=== PATIENT | female | born 2000 | race Hispanic/Latino ===

== ENCOUNTER 2022-05-30 10:33 | Emergency (ER) | payer OTHER, MEDICAID, SELFPAY ==
[2022-05-30] VITALS (8 sets, daily range): BP systolic 120–130; BP diastolic 60–84; PULSE 73–94; RESP 18; TEMP 36.4; O2SAT 95–97; BMI 30.1
--- NOTE | 2022-05-30 11:35 | DI.US.S_ITS ---
PROCEDURE: US PERIPH VENOUS LOW EXTREM LT INDICATIONS: CALF PAIN TECHNIQUE: Real-time imaging, as well as color and pulse Doppler interrogation, were performed of the lower extremity deep veins from the inguinal ligament to the popliteal fossa. COMPARISON: None. FINDINGS: The common femoral, femoral and popliteal veins are normally compressible, and free of intraluminal thrombus. Color and pulse Doppler demonstrate normal phasic intraluminal flow. There is normal augmentation response to distal compression maneuver. IMPRESSION: Negative for deep venous thrombosis. Dictated by: Dante Siddiqui M.D. on 05/30/2022 at 11:07 Approved by: Dante Siddiqui M.D. on 05/30/2022 at 11:08
--- NOTE | 2022-05-30 11:35 | DI.RAD.S_ITS ---
PROCEDURE: XR CHEST 1V INDICATIONS: chest pain TECHNIQUE: One view of the chest was acquired. COMPARISON: None. FINDINGS: Surgical changes and devices: None. Lungs and pleura: Lungs are clear. No pleural effusions or pneumothorax. Mediastinum: Mediastinal contours appear normal. Heart size is normal. Bones and chest wall: No suspicious bony lesions. Overlying soft tissues appear unremarkable. IMPRESSION: No acute cardiopulmonary process. Dictated by: Hollis Ch M.D. on 05/30/2022 at 12:20 Approved by: Hollis Ch M.D. on 05/30/2022 at 12:20
[2022-05-30 12:01] LABS: Add Manual Diff / Slide Review NO; Basophils Absolute Auto 0 /uL (0-100); Basophils Percent Auto 0.8 % (0-2); Eosinophils Absolute Auto 100 /uL (0-450); Eosinophils Percent Auto 2.8 % (2-4); Hematocrit 39.5 % (36-46); Hemoglobin 12.9 g/dL (12.0-16.0); Lymphocytes Absolute Auto 1300 /uL (1100-4500); Lymphocytes Percent Auto 32.1 % (25-40); Mean Corpuscular HGB Conc 32.6 % (30-36); Mean Corpuscular Hemoglobin 27.2 PG (26-34); Mean Corpuscular Volume 83.3 fL (80-100); Monocytes Absolute Auto 500 /uL (0-900); Monocytes Percent Auto 13.7 % (3-14); Neutrophils Absolute Auto 2000 /uL (1500-7000); Neutrophils Percent Auto 50.6 % (50-75); Platelet Count 162 X10^3/uL (150-400); Red Blood Cell Count 4.74 X10^6/uL (4.0-5.2); Red Cell Distribution Width 13.5 % (11.6-14.8)
[2022-05-30 12:11] LABS: INR 1.1 (0.9-1.3)
[2022-05-30 12:13] LABS: PTT Partial Thromboplastin Tim 31 SECONDS (26-36)
[2022-05-30 12:16] LABS: Alanine Aminotransferase 35 IU/L (<35); Albumin 4.3 g/dL (3.5-5.0); Albumin Globulin Ratio 1.2 (1.0-2.8); Alkaline Phosphatase 77 U/L (38-126); Aspartate Aminotransferase 26 IU/L (14-36); BUN Creatinine Ratio 35.7 (6-22); Bilirubin Total 0.2 mg/dL (0.2-1.3); Blood Urea Nitrogen 20 mg/dL (7-17); Calcium 8.4 mg/dL (8.4-10.2); Carbon Dioxide 25 mmol/L (22-32); Chloride 103 mmol/L (98-107); Creatine Kinase 71 U/L (30-135); Estimated Glomerular Filt Rate > 60 mL/min (>60); Globulin 3.5 g/dL (1.7-4.1); Glucose 86 mg/dL (70-100); HEMOLYSIS < 15 (0-50); Lipase 107 U/L (23-300); Magnesium 1.9 mg/dL (1.6-2.3); Potassium 3.8 mmol/L (3.4-5.1); Sodium 139 mmol/L (137-145); Total Protein 7.8 g/dL (6.3-8.2)
[2022-05-30 12:17] LABS: D Dimer 543 ng/ml (<500)
--- NOTE | 2022-05-30 12:22 | DI.CT.S_ITS ---
PROCEDURE: CT ANGIO CHEST PE PROTOCOL INDICATIONS: Chest pain/positive D-dimer TECHNIQUE: After the administration of intravenous contrast, 2 mm thick sections acquired from the pulmonary apices to the posterior costophrenic angles. 3-dimensional maximum intensity projection (MIP) coronal and sagittal reformats were then acquired through the thorax. For radiation dose reduction, the following was used: automated exposure control, adjustment of mA and/or kV according to patient size. COMPARISON: None. FINDINGS: Image quality: Excellent. Pulmonary arteries: Pulmonary arteries are normal in size, and demonstrate no intraluminal filling defects to suggest central pulmonary embolism. Lungs and pleura: Lungs are clear. No pleural effusions or pneumothorax. Central and peripheral airways are patent. Mediastinum: Heart size is normal, without pericardial effusion. No mediastinal or hilar adenopathy. Thoracic aorta is normal in caliber and enhancement. Esophagus is normal in caliber, without hiatal hernia. Bones and chest wall: No suspicious bony lesions. Ribs and thoracic spine appear intact throughout. Thyroid gland is unremarkable. No axillary or supraclavicular adenopathy. Abdomen: Visualized upper abdominal solid organs appear normal in the early arterial phase of enhancement. IMPRESSION: No pulmonary embolism. No findings to explain upper back and chest pain. Dictated by: Hollis Ch M.D. on 05/30/2022 at 12:59 Approved by: Hollis Ch M.D. on 05/30/2022 at 13:05
--- NOTE | 2022-05-30 12:22 | ED.CHESTPAIN ---
HPI - Chest Pain General Chief Complaint: Chest Pain Stated Complaint: chest pain 1 week /back pain 3 week Time Seen by Provider: 05/30/22 11:42 Source: patient Mode of arrival: Ambulatory Limitations: no limitations History of Present Illness HPI narrative: Patient brought here by boyfriend for complaints of constant 5/10 sharp substernal chest pain that radiates to left in the right. Goes to her back as well. No nausea no dyspnea no sweating no syncope. No history of blood clots or legs or lungs. Patient also complains of left calf pain. No dyspnea. Patient has been under lot of stress recently. More than usual. No recent nausea vomiting diarrhea cough cold or congestion. Denies . No primary family history of heart attack or blood clots in legs or lungs. Patient is not on any control pills. Pain is nonreproducible. No discomfort with walking. No discomfort with deep breath cough or movement. She is not tried any medications for this pain Related Data Allergies Allergy/AdvReac Type Severity Reaction Status Date / Time No Known Drug Allergies Allergy Verified 05/30/22 10:43 Review of Systems Review of Systems Narrative: GENERAL: negative chills, fatigue, malaise, fever, sweats. HEENT: negative sinus pain, ear pain, sore throat RESPIRATORY: negative dyspnea, cough CARDIOVASCULAR: Positive chest pain, negative palpitations GASTROINTESTINAL: negative nausea, vomiting, abdominal pain : negative dysuria, frequency, hematuria MUSCULOSKELETAL: negative muscle or bony pain SKIN: negative rash, skin lesions NEUROLOGIC: negative weakness, numbness ROS Unobtainable: All systems reviewed & are unremarkable except as noted in HPI and below Patient History Social History Smoking Status: Never smoker Smoking Status: Never smoker alcohol intake frequency: other Substance Use Type: does not use Exam Narrative Exam Narrative: GENERAL: in no distress, not toxic not dyspneic HEAD: Normocephalic. EYES: Pupils equal round ENT: Mucous membranes moist. NECK: Trachea midline. CARDIOVASCULAR: Regular rate and rhythm without murmurs, nontender chest wall on palpation. No pain with deep breath or movement or cough or deep breath. RESPIRATORY: Clear to auscultation. Breath sounds equal bilaterally. No wheezes, rales, or rhonchi. GASTROINTESTINAL: Abdomen soft, non-tender EXTREMITIES: No gross deformities. Calves nontender BACK: No flank tenderness. NEURO: AOx4. SKIN: Warm and dry PSYCH: Not anxious, is cooperative Initial Vital Signs Initial Vital Signs: Vital Signs Temperature 97.6 F 05/30/22 10:43 Pulse Rate 94 H 05/30/22 10:43 Respiratory Rate 18 05/30/22 10:43 Blood Pressure 125/62 05/30/22 10:43 Pulse Oximetry 96 05/30/22 10:43 Oxygen Delivery Method 05/30/22 10:43 Scores HEART Score Heart Score history: Slightly Suspicious Heart Score EKG: Normal Heart Score Age: < 45 years old Heart Score risk factors: No known risk factors Heart Score troponin: < or = to normal limit Heart Score Total: 0 Course Orders Ordered: ED Orders 05/30/22 10:48 EKG-12 Lead Stat 05/30/22 11:35 US periph venous low extrem lt Stat XR chest 1V Stat EKG-12 Lead Stat 05/30/22 11:50 Complete Blood Count AUTO DIFF Stat Comprehensive Metabolic Panel Stat D Dimer Stat Lipase Stat Magnesium Stat Partial Thromboplastin Time Stat Prothrombin Time INR Stat Troponin & CK Cardiac Panel Stat 05/30/22 12:18 COVID19 -Nasal RAPID/Pre-Proc Stat 05/30/22 12:22 CT angio chest PE protocol Stat 05/30/22 12:23 Test Serum,Qual Stat Discontinued Medications Sodium Chloride (Normal Saline 0.9%) 500 mls @ 1,000 mls/hr IV BOLUS ONE Stop: 05/30/22 12:51 Last Infusion: 05/30/22 13:26 Dose: 0 mls/hr Documented By: Admin: 05/30/22 12:34 Dose: 1,000 mls/hr Documented By: CARL Ketorolac Tromethamine (Ketorolac 30 Mg/Ml Vial) 15 mg IV NOW ONE Stop: 05/30/22 12:23 Last Admin: 05/30/22 12:33 Dose: 15 mg Documented By: CARL Vital Signs Vital signs: Vital Signs - 8 hr 05/30/22 10:43 05/30/22 11:52 05/30/22 11:53 Temperature 97.6 F Pulse Rate 94 H 82 Respiratory Rate 18 18 Blood Pressure 125/62 120/83 Pulse Oximetry 96 97 Oxygen Delivery Method Room Air Room Air 05/30/22 11:53 05/30/22 12:00 05/30/22 12:00 Temperature Pulse Rate 82 83 Respiratory Rate Blood Pressure 123/84 Pulse Oximetry 97 97 Oxygen Delivery Method 05/30/22 12:30 05/30/22 12:30 05/30/22 12:49 Temperature Pulse Rate 83 Respiratory Rate Blood Pressure 126/80 126/60 Pulse Oximetry 95 Oxygen Delivery Method 05/30/22 12:49 05/30/22 13:00 05/30/22 13:00 Temperature Pulse Rate 85 79 Respiratory Rate Blood Pressure 130/70 Pulse Oximetry 97 96 Oxygen Delivery Method 05/30/22 13:30 05/30/22 13:30 Temperature Pulse Rate 73 Respiratory Rate Blood Pressure 130/74 Pulse Oximetry 97 Oxygen Delivery Method MDM - Chest Pain Lab Data 05/30/22 11:50 05/30/22 11:50 Labs: Lab Results 05/30/22 05/30/22 05/30/22 Range/Units 11:50 11:50 11:50 WBC 4.0 L (4.5-11.0) X10^3/uL RBC 4.74 (4.0-5.2) X10^6/uL Hgb 12.9 (12.0-16.0) g/dL Hct 39.5 (36-46) % MCV 83.3 (80-100) fL MCH 27.2 (26-34) PG MCHC 32.6 (30-36) % RDW 13.5 (11.6-14.8) % Plt Count 162 (150-400) X10^3/uL Neut % (Auto) 50.6 (50-75) % Lymph % (Auto) 32.1 (25-40) % [place] % (Auto) 13.7 (3-14) % Eos % (Auto) 2.8 (2-4) % Baso % (Auto) 0.8 (0-2) % Neut # (Auto) 2000 (9803-0622) /uL Lymph # (Auto) 1300 (6487-7910) /uL [place] # (Auto) 500 (0-900) /uL Eos # (Auto) 100 (0-450) /uL Baso # (Auto) 0 (0-100) /uL PT 13.0 H (10.1-12.7) SECONDS INR 1.1 (0.9-1.3) APTT 31 (26-36) SECONDS D-Dimer (<500) ng/ml Sodium 139 (137-145) mmol/L Potassium 3.8 (3.4-5.1) mmol/L Chloride 103 (98-107) mmol/L Carbon Dioxide 25 (22-32) mmol/L BUN 20 H (7-17) mg/dL Creatinine 0.56 (0.52-1.04) mg/dL Estimated GFR > 60 (>60) mL/min BUN/Creatinine Ratio 35.7 H (6-22) Glucose 86 (70-100) mg/dL Calcium 8.4 (8.4-10.2) mg/dL Magnesium 1.9 (1.6-2.3) mg/dL Total Bilirubin 0.2 (0.2-1.3) mg/dL AST 26 (14-36) IU/L ALT 35 H (<35) IU/L Alkaline Phosphatase 77 (38-126) U/L Total Creatine Kinase 71 (30-135) U/L CK-MB (CK-2) TNP CK-MB (CK-2) Rel Index TNP Troponin I < 0.012 (0.01-0.034) ng/mL Total Protein 7.8 (6.3-8.2) g/dL Albumin 4.3 (3.5-5.0) g/dL Globulin 3.5 (1.7-4.1) g/dL Albumin/Globulin Ratio 1.2 (1.0-2.8) Lipase 107 (23-300) U/L Serum , Qual (Negative) SARS-CoV-2 (PCR) (Negative) 05/30/22 05/30/22 05/30/22 Range/Units 11:50 12:18 12:23 WBC (4.5-11.0) X10^3/uL RBC (4.0-5.2) X10^6/uL Hgb (12.0-16.0) g/dL Hct (36-46) % MCV (80-100) fL MCH (26-34) PG MCHC (30-36) % RDW (11.6-14.8) % Plt Count (150-400) X10^3/uL Neut % (Auto) (50-75) % Lymph % (Auto) (25-40) % [place] % (Auto) (3-14) % Eos % (Auto) (2-4) % Baso % (Auto) (0-2) % Neut # (Auto) (6842-5673) /uL Lymph # (Auto) (8879-9701) /uL [place] # (Auto) (0-900) /uL Eos # (Auto) (0-450) /uL Baso # (Auto) (0-100) /uL PT (10.1-12.7) SECONDS INR (0.9-1.3) APTT (26-36) SECONDS D-Dimer 543 H (<500) ng/ml Sodium (137-145) mmol/L Potassium (3.4-5.1) mmol/L Chloride (98-107) mmol/L Carbon Dioxide (22-32) mmol/L BUN (7-17) mg/dL Creatinine (0.52-1.04) mg/dL Estimated GFR (>60) mL/min BUN/Creatinine Ratio (6-22) Glucose (70-100) mg/dL Calcium (8.4-10.2) mg/dL Magnesium (1.6-2.3) mg/dL Total Bilirubin (0.2-1.3) mg/dL AST (14-36) IU/L ALT (<35) IU/L Alkaline Phosphatase (38-126) U/L Total Creatine Kinase (30-135) U/L CK-MB (CK-2) CK-MB (CK-2) Rel Index Troponin I (0.01-0.034) ng/mL Total Protein (6.3-8.2) g/dL Albumin (3.5-5.0) g/dL Globulin (1.7-4.1) g/dL Albumin/Globulin Ratio (1.0-2.8) Lipase (23-300) U/L Serum , Qual Negative (Negative) SARS-CoV-2 (PCR) Negative (Negative) Point of Care Testing Test Results Negative Urine Dip Bedside Urine Glucose Negative Bedside Urine Bilirubin - Negative Bedside Urine Ketone - Negative Urine Specific [place] 1.030 Bedside Urine Occult Blood - Negative Bedside Urine pH 6.0 Bedside Urine Protein - Negative Bedside Urine Urobilinogen - Negative Bedside Urine Nitrite - Negative Bedside Urine Leukocytes - Negative Esterase Imaging Data Chest x-ray: Radiologist's Impression: [address] [address] XRay Report Signed Patient: Ruby Arevalo MR#: [id number] : 2000 Acct:[id number] Age/Sex: 21 / F Date of Service: 05/30/22 Loc: ED Accession Number: [id number] ?? Procedure: XR chest 1V Ordering Provider: Edy Mcgrath MD PROCEDURE:? XR CHEST 1V ? INDICATIONS:? chest pain ? TECHNIQUE:? One view of the chest was acquired.? ? COMPARISON:? None. ? FINDINGS:? ? Surgical changes and devices:? None.? ? Lungs and pleura:? Lungs are clear.? No pleural effusions or pneumothorax.? ? Mediastinum:? Mediastinal contours appear normal.? Heart size is normal.? ? Bones and chest wall:? No suspicious bony lesions.? Overlying soft tissues appear unremarkable.? ? IMPRESSION:? No acute cardiopulmonary process. ? ? ? Dictated by: Hollis Ch M.D. on 05/30/2022 at 12:20 ? ? Approved by: Hollis Ch M.D. on 05/30/2022 at 12:20 ? US - DVT: Radiologist's Impression: [address] [address] Ultrasound Report Signed Patient: Ruby Arevalo MR#: [id number] : 2000 Acct:[id number] Age/Sex: 21 / F Date of Service: 05/30/22 Loc: ED Accession Number: [id number] ?? Procedure: US periph venous low extrem lt Ordering Provider: Edy Mcgrath MD PROCEDURE:? US PERIPH VENOUS LOW EXTREM LT ? INDICATIONS:? CALF PAIN ? TECHNIQUE:? Real-time imaging, as well as color and pulse Doppler interrogation, were performed of the lower extremity deep veins from the inguinal ligament to the popliteal fossa.? ? COMPARISON:? None. ? FINDINGS:? The common femoral, femoral and popliteal veins are normally compressible, and free of intraluminal thrombus.? Color and pulse Doppler demonstrate normal phasic intraluminal flow.? There is normal augmentation response to distal compression maneuver. ? ? IMPRESSION:? ? Negative for deep venous thrombosis. ? ? Dictated by: Dante Siddiqui M.D. on 05/30/2022 at 11:07 ? ? Approved by: Dante Siddiqui M.D. on 05/30/2022 at 11:08 ? CT scan - chest: Radiologist's Impression: [address] [address] [address] Scan Report Signed Patient: Ruby Arevalo MR#: [id number] : 2000 Acct:[id number] Age/Sex: 21 / F Date of Service: 05/30/22 Loc: ED Accession Number: [id number] ?? Procedure: CT angio chest PE protocol Ordering Provider: Edy Mcgrath MD PROCEDURE:? CT ANGIO CHEST PE PROTOCOL ? INDICATIONS:? Chest pain/positive D-dimer ? TECHNIQUE:? After the administration of intravenous contrast, 2 mm thick sections acquired from the pulmonary apices to the posterior costophrenic angles.? 3-dimensional maximum intensity projection (MIP) coronal and sagittal reformats were then acquired through the thorax.? For radiation dose reduction, the following was used:? automated exposure control, adjustment of mA and/or kV according to patient size.? ? COMPARISON:? None. ? FINDINGS:? Image quality:? Excellent.? ? Pulmonary arteries:? Pulmonary arteries are normal in size, and demonstrate no intraluminal filling defects to suggest central pulmonary embolism.? ? Lungs and pleura:? Lungs are clear.? No pleural effusions or pneumothorax.? Central and peripheral airways are patent.? ? Mediastinum:? Heart size is normal, without pericardial effusion.? No mediastinal or hilar adenopathy.? Thoracic aorta is normal in caliber and enhancement.? Esophagus is normal in caliber, without hiatal hernia.? ? Bones and chest wall:? No suspicious bony lesions.? Ribs and thoracic spine appear intact throughout.? Thyroid gland is unremarkable.? No axillary or supraclavicular adenopathy.? ? Abdomen:? Visualized upper abdominal solid organs appear normal in the early arterial phase of enhancement.? ? IMPRESSION:? No pulmonary embolism.? No findings to explain upper back and chest pain. ? ? Dictated by: Hollis Ch M.D. on 05/30/2022 at 12:59 ? ? Approved by: Hollis Ch M.D. on 05/30/2022 at 13:05 ? MDM Narrative Medical decision making narrative: Patient brought here by boyfriend for complaints of constant 5/10 sharp substernal chest pain that radiates to left in the right. Goes to her back as well. No nausea no dyspnea no sweating no syncope. No history of blood clots or legs or lungs. Patient also complains of left calf pain. No dyspnea. Patient has been under lot of stress recently. More than usual. No recent nausea vomiting diarrhea cough cold or congestion. Denies . No primary family history of heart attack or blood clots in legs or lungs. Patient is not on any control pills. Pain is nonreproducible. No discomfort with walking. No discomfort with deep breath cough or movement. She is not tried any medications for this pain After history and exam CBC CMP troponin D-dimer chest x-ray ultrasound the leg ordered, Toradol as well MDM CC: Chest pain Complicating co-morbidities: None Data collected from: Patient and boyfriend Medical records reviewed: No previous visits here for this complaint Differential considered: Includes but not limited to pleurisy costochondritis pulmonary embolism dissection pneumothorax [place] non-STEMI angina anxiety Exam documented above, pertinent findings include: Nontender chest Lab Test results independently reviewed as above. Pertinent findings: WBC 4 hemoglobin 12.9 hematocrit 13.5 sodium 139 potassium 3.8 AST 26 ALT 35 Independently reviewed EKG as above normal sinus rhythm normal EKG rate [address] elevation or depression Imaging studies independently reviewed: Chest x-ray no acute process. Ultrasound left leg no DVT, CT PE protocol chest no acute process Treatments: Toradol normal saline Re-evaluations: 1:30 p.m.. Patient states she did have some temporary relief with Toradol with her chest discomfort. She is by herself at this time in her room. She appears much more relaxed. Earlier boyfriend and 2 small children were in room with her. She states she has been under a lot of stress. 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 She does not go into detail about the recent stressors. She states that grandparents are in town and they can help out with the children to give her a break. She can not take any anxiolytics because she has to watch the children. She does have a family doctor to follow up with and get resources for stress management.. Return precautions reviewed with her. She desires discharge home Discussion: Appropriate for discharge home. Exam and laboratory studies and imaging are reassuring. Heart score is low and has lower heart risk factors. No primary family history of cardiac disease. No history hypertension hyperlipidemia. Patient does not smoke. Did get some relief with Toradol. Return precautions reviewed with patient. Chest discomfort likely due to her home stress. Not toxic at discharge. Return precautions reviewed with her. She does have a family doctor to follow up with. Patient chest discomfort likely related to stress. It was relieved with conservative treatment/Toradol. Diagnosis: Atypical chest pain/home stress Discharge Plan Departure Patient Disposition: Home Clinical Impression: Atypical chest pain, Stress at home Instructions: How stressed are you?, DI for Atypical Chest Pain Activity Restrictions/Additional Instructions: Please see family doctor this week for re-evaluation for your chest pain and stress management your in during. Please do try to find ways to relax and find time for yourself. At this time laboratory studies and imaging are reassuring. Return if worse if any questions or concerns. Referrals: Sierra Hollis PA-C [Primary Care Provider] - Stand Alone Forms: Patient Portal/API
[2022-05-30 12:27] LABS: Troponin I < 0.012 ng/mL (0.01-0.034)
[2022-05-30] MEDS: KETOROLAC 30 MG/ML VIAL 15 MG IV (12:33)
[2022-05-30] MEDS: SODIUM CHLORIDE 0.9% 500 ML 1000 ML IV (12:34)
[2022-05-30 12:43] LABS: COVID19 -Nasal RAPID Negative (Negative)
[2022-05-30 12:49] LABS: Pregnancy Test Serum,Qual Negative (Negative)
== END 2022-05-30 13:45 | disposition home or self-care (01) ==
PROVIDERS: Emergency Provider Emergency Medicine; Family Provider Obstetrics & Gynecology; PCP Physician Assistant
DX: R07.89 Other chest pain (principal); F43.9 Reaction to severe stress, unspecified; Z20.822 Contact with and (suspected) exposure to COVID-19
CPT/HCPCS: 36415; 71045; 71275; 80053; 81003; 81025; 82550; 83690; 83735; 84484; 84703; 85025; 85379; 85610; 85730; 87635; 93005; 93971; 96361; 96374; 99284; 99285; C9803; J1885

== ENCOUNTER 2022-10-13 09:30 | Outpatient (RCR) | payer OTHER, MEDICAID, SELFPAY ==
--- NOTE | 2022-01-13 18:19 | PT.OIE ---
Current Diagnoses Other female genital prolapse (01/13/22) Visit Care Team Role Provider Type Sierra Hollis PA-C Primary Care Provider Non-Staff Specialty: Medical Address: [facility] [place] , [facility] [address], [place], [address] Email: Bonnie Lee MD Family Provider Non-Staff Specialty: CREDIT ANALYSIS MANAGER Address: [address] [place], [address] Email: Abran Zimmerman MD Attending Provider Non-Staff Referring Provider Specialty: CREDIT ANALYSIS MANAGER Address: [address] [place] [address], [address], [place], [address] Email: Physical Therapy Initial Evaluation PT-OP-A Visit Information Start: 01/02/22 18:07 Freq: Status: Active Protocol: Document 01/13/22 14:33 LRN (Rec: 01/13/22 18:18 LRN [id number]) Out-Patient Physical Therapy Visit Information Visit Information Visit Type Initial Evaluation Visit Start Time 14:33 Visit Stop Time 15:29 Total Visit Minutes 56 Visit Number 1 Evaluation Information Evaluation Date 01/13/22 Precautions Precautions Depression controlled with meds, 05/26/21. Pubic symphasis instability, DR concerns & pelvic pain s/p pregnancies, currently . PT-OP-B Current Condition Start: 01/02/22 18:07 Freq: Status: Active Protocol: Document 01/13/22 14:33 LRN (Rec: 01/13/22 18:18 LRN [id number]) Current Condition History of Current Condition Onset Date 06/19/20 & 05/26/21. Current Complaints Urinary leakage with lifting, cough, sneeze, sexual intercourse. History of Current Condition Pt just had 2 babies back to back, first was almost 10 #. Has weakened PF and leaks urine with lifting too heavy and with sexual intercourse and with cough or sneeze and with exercise. 1st was vaginal delivery (10# baby) with 2nd degree tears requiring stitches. Urinary leakage after childbirth. 2nd was a due to preclampsia with urinary leakage about the same. Pubic pain during pregnancies and was leaking urine with walking . 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 HBP during , but now normal. Currently . Prior Treatments and Tests None Developmental History Developmental History Childbirths 06/19/20 and both boys. Treatment Goals Patient/Caregiver Goals Pt goals: -Eliminate urinary leakage -Minimize her diastasis rectus . -Decrease or eliminate PF pain in pernium and abdomen. -Independent HEP of self care for PF and abdomen. Prior Functional Status Baseline Function- Other Prior to first , no urinary leakage. Prior to second Urinary leakage with lifting, cough, sneeze, sexual intercourse. Post- depression. PF pain with intercourese Current Functional Impairments (Reported) Functional Limitations- Other Urinary leakage with lifting, cough, sneeze, sexual intercourse. Post- depression. PF pain with intercourse in lower abdomen and around vaginal canal. Pain is throbbing, lasts 1-2 hours. Personal Factors Other Personal Factors That May Effect Depression controlled with Therapy/Recovery meds, - 05/26/21. PT-OP-C Subjective Start: 01/02/22 18:07 Freq: Status: Active Protocol: Document 01/13/22 14:33 LRN (Rec: 01/13/22 18:18 LRN [id number]) Patient Questionnaires Pelvic Pain and Urgency/Frequency Patient Symptom Scale Pelvic Pain Score 21 OP-PT Pain Assessment Pain Assessment Grid Paper Pain Assessment Grid Completed No: Pt verbalized her pain levels Location Abdominal Pain Location Details Above Pubic bone Intensity 7 Scale Used Numeric (0 - 10) Description Cramping Description- Other Camping Frequency Constant Pain Duration 3-8/10 cramping. PF Pain Location Details In vaginal region inside, sometimes around anus Intensity 7 Scale Used Numeric (0 - 10) Description Throbbing PT-OP-I Pelvic Floor Start: 01/02/22 18:07 Freq: Status: Active Protocol: Document 01/13/22 14:33 LRN (Rec: 01/13/22 18:18 LRN [id number]) Pelvic Floor Assessment Urine Pelvic Floor Surgery Yes: Grade 2 tear with 1st Urinary Symptoms Pain Leakage Cause Cough,Exercise,Lifting,Sneeze Bowel Bowel Symptoms Constipation,Pain Bowel Movement Frequency 1x every 3-4 days. Previously was voiding daily. Pitt Stool Chart Type 1-7 1 PT-OP-J Posture/Palpation/Skin Start: 01/02/22 18:07 Freq: Status: Active Protocol: Document 01/13/22 14:33 LRN (Rec: 01/13/22 18:18 LRN [id number]) Posture Evaluation Position Standing Head/C-Spine Posture Side Bent Left,Forward Head L-Spine Posture Increased Lordosis,Shifted Right Shoulder Posture (L) Elevated Scapula Posture (L) Elevated Arm Posture (L) Internally Rotated,(R) Internally Rotated Pelvis Posture Anteriorly Tilted,(L) Rotated Posterior,(L) Iliac Crest Superior,(L) PSIS Posterior Knee Posture (L) Genu Valgus,(R) Genu Valgus,(L) Genu Recurvatum,(R) Genu Recurvatum Comments Posture Comments Mid spine scoliosis (R apex upper curve, L apex lower curve), Femur IR'd, lower legs ER'd. Sacrum posterior on L side. PT-OP-K Range of Motion Start: 01/02/22 18:07 Freq: Status: Active Protocol: Document 01/13/22 14:33 LRN (Rec: 01/13/22 18:18 LRN [id number]) Lumbar Spine Range of Motion Lumbar Spine Active Degrees Flexion 100 Extension 15 Lateral Flexion Left 28 Lateral Flexion Right 23 Hip Goniometric Range of Motion Hip Right Passive Testing Position Supine Flexion w/Knee Flexed 100 Abduction 50 Internal Rotation 45 External Rotation 45 Left Passive Testing Position Supine Abduction 45 Internal Rotation 30 External Rotation 50 Comments Pain in L groin with Passive hip ER. PT-OP-M Strength Start: 01/02/22 18:07 Freq: Status: Active Protocol: Document 01/13/22 14:33 LRN (Rec: 01/13/22 18:18 LRN [id number]) Trunk Strength Trunk Manual Muscle Testing Testing Position Supine Core Stabilization Doming of core with transfers sit<>supine. Hip Strength Hip Manual Muscle Testing Right External Rotation 3+ Fair+ Internal Rotation 3 Fair Comments Pain in groin and lateral hips with MMT of hip IR Left External Rotation 3 Fair Internal Rotation 3 Fair Comments Pain in groin and lateral hips with MMT of hip IR and active ER PT-OP-Q Treatments Start: 01/02/22 18:07 Freq: Status: Active Protocol: Document 01/13/22 14:33 LRN (Rec: 01/13/22 18:18 LRN [id number]) Self-Care/Home Management Treatment Education Patient Education Home Exercise Program Other Education Discussed results of evaluation, goals, and plan of care (POC). Pt agreeable to goals and POC. Educated, discussed, issued, & reviewed Bladder Diary for pt to complete over the next 7 days. Explained how to fill out diary for urinary and bowel tracking. Activities Self-Care/Home Management Activities Issued & reviewed HEP: Kegel ex's for Quick Flicks, Long Holds and Aggravator strengthening. I/S pt in TA tightening in sitting. PT-OP-T Assessment and Plan Start: 01/02/22 18:07 Freq: Status: Active Protocol: Document 01/13/22 14:33 LRN (Rec: 01/13/22 18:18 LRN [id number]) Physical Therapy Assessment Rehab Potential Rehabilitation Potential Good Evaluation Complexity Number of Personal Factors/Comorbidities 1-2 Number of Body Systems Impaired 4 or More Clinical Presentation at Evaluation Evolving Impairments Impairments Activity Tolerance,Gait,Pain, Posture,ROM,Soft Tissue Mobility,Strength,Transfers Goals Five Impairment Constipation Impairment Type 1 BM's BM once every 3 days. Short Term Goal (STG) BM daily STG Duration 03/01/22 Nursing Home Goal (LTG) Type 3-4 BM's LTG Duration 04/13/22 Four Impairment Diastasis Rectus Impairment Doming of abdomen and pain in lower abdomen with supine lying and transfers. Short Term Goal (STG) Strengthen TA resulting in no doming with transfers STG Duration 03/14/22 Nursing Home Goal (LTG) Minimal to no doming with exercise and minimize diastasis rectus. LTG Duration 07/12/22 Three Impairment Urinary leakage Impairment Urinary leakage with lifting too heavy and with sexual intercourse and with cough or sneeze and with exercise. Short Term Goal (STG) Pt able to maintain urinary continence with lifting of baby & coughing. STG Duration 03/14/22 Staff Electronic Warfare Officer Goal (LTG) Eliminate urinary leakage with sexual intercourse, and 2 months or longer s/p . LTG Duration 07/12/22 Two Impairment PF pain Impairment Pain in lower abdomen, vaginal region inside, and sometimes around anus, rated 7/10. Cramping pain in abdomen, Throbbing pain at perineum. Short Term Goal (STG) Pt educated in proper bowel mgmt/care, fluid recommendations, vulvar care and genital hygiene. STG Duration 02/12/22 Nursing Home Goal (LTG) Decrease to no greater than 1/ 10 or eliminate PF pain in perineum and abdomen. LTG Duration 04/13/22 One Impairment Lacks appropriate self care HEP. Short Term Goal (STG) Pt will be educated in proper transfers to protect her DR and to stabilize her core/PF STG Duration 02/12/22 Nursing Home Goal (LTG) Independent HEP of self care of PF, kayley hip, core strengthening and abdominal self tissue mobilization. LTG Duration 07/12/22 Assessment Summary Assessment Pt presents with multiple woman's health dysfunctions and complaint of PF pain with assessment of trunk and hip ROM; therefore held manual assessment of PF and DR today and will assess at her next appointment. She shows signs and symptoms of stress urinary incontinence, bowel dysfunction of constipation, pelvic floor pain of the abdomen and perineum, core weakness and instability with doming of her abdomen with transfers, pubic symphasis instability, and probable Diastasis Rectus. Hindering her rehabilitation program is her current and hormonal status. She is also a busy mother of a baby and toddler less than a year apart in age. It is expected that the pt's rehabilitation will take longer than expected due to her multiple areas of dysfunction. The pt will benefit from skilled physical therapy to decrease her urinary incontinence, improve bowel function, decrease pelvic pain improve core and pubic symphasis stability and reduce her diastasis rectus and educate the pt in a self residential program. The pt may need an external support to minimize her pubic symphysis pain while she is still . Physical Therapy Plan Frequency and Duration Frequency of Treatment 1x/Week Plan of Care Start Date 01/13/22 Plan of Care End Date 07/12/22 Therapeutic Interventions Therapeutic Interventions Aquatic Therapy,Home Exercise Program,Joint Mobilizations, Manual Therapy,Neuromuscular Re-education,Patient/Caregiver Education,Self-Care/Home Management,Soft Tissue Mobilization,Taping, Therapeutic Activities, Therapeutic Exercises Modalities Biofeedback,Cold Pack/Ice Massage,Electric Stimulation, Hot Packs Next Visit Focus/Plan Next Note Type Treatment Note Next Visit Plan If pt tolerates: Assess Internally PF for prolapse, pain, strength, bowel dysfunction and her DR. Try belting pt for Pub symphasis pain reduction and recommend belt if appropriate. Review bladder diary and make recommendation for proper fluid/food intake. Education: PF hygiene, PF care, proper BM with modifications as needed, bowel care and program, DR education, proper transfers for DR protection, postural changes associated to pregancy . Ex: Bowel massage, proper breathing, PF strengthening, Core/TA stab, Pelvic stab ( start Roll in/outs if tolerated) hip strengthening. Improve painfree hip and trunk mobility and posture.
--- NOTE | 2022-01-13 18:20 | PT.OPPOC ---
Physical, Occupational & Speech Therapy At [facility] Current Diagnoses Other female genital prolapse (01/13/22) Visit Care Team Role Provider Type Sierra Hollis PA-C Primary Care Provider Non-Staff Specialty: Medical Address: [address] [place] [address] [place], [facility] [address], [place], [address] Email: Bonnie Lee MD Family Provider Non-Staff Specialty: RADIOGRAPHER Address: [address] [place] [address], [address] Email: Abran Zimmerman MD Attending Provider Non-Staff Referring Provider Specialty: RADIOGRAPHER Address: [address] [place] [address], [address], [place], [address] Email: Plan Of Care PT-OP-T Assessment and Plan Start: 01/02/22 18:07 Freq: Status: Active Protocol: Document 01/13/22 14:33 LRN (Rec: 01/13/22 18:18 LRN [id number]) Physical Therapy Assessment Rehab Potential Rehabilitation Potential Good Evaluation Complexity Number of Personal Factors/Comorbidities 1-2 Number of Body Systems Impaired 4 or More Clinical Presentation at Evaluation Evolving Impairments Impairments Activity Tolerance,Gait,Pain, Posture,ROM,Soft Tissue Mobility,Strength,Transfers Goals Five Impairment Constipation Impairment Type 1 BM's BM once every 3 days. Short Term Goal (STG) BM daily STG Duration 03/01/22 Half-Way Goal (LTG) Type 3-4 BM's LTG Duration 04/13/22 Four Impairment Diastasis Rectus Impairment Doming of abdomen and pain in lower abdomen with supine lying and transfers. Short Term Goal (STG) Strengthen TA resulting in no doming with transfers STG Duration 03/14/22 Audience Development Manager Goal (LTG) Minimal to no doming with exercise and minimize diastasis rectus. LTG Duration 07/12/22 Three Impairment Urinary leakage Impairment Urinary leakage with lifting too heavy and with sexual intercourse and with cough or sneeze and with exercise. Short Term Goal (STG) Pt able to maintain urinary continence with lifting of baby & coughing. STG Duration 03/14/22 Half-Way Goal (LTG) Eliminate urinary leakage with sexual intercourse, and 2 months or longer s/p . LTG Duration 07/12/22 Two Impairment PF pain Impairment Pain in lower abdomen, vaginal region inside, and sometimes around anus, rated 7/10. Cramping pain in abdomen, Throbbing pain at perineum. Short Term Goal (STG) Pt educated in proper bowel mgmt/care, fluid recommendations, vulvar care and genital hygiene. STG Duration 02/12/22 Half-Way Goal (LTG) Decrease to no greater than 1/ 10 or eliminate PF pain in perineum and abdomen. LTG Duration 04/13/22 One Impairment Lacks appropriate self care HEP. Short Term Goal (STG) Pt will be educated in proper transfers to protect her DR and to stabilize her core/PF STG Duration 02/12/22 Half-Way Goal (LTG) Independent HEP of self care of PF, kayley hip, core strengthening and abdominal self tissue mobilization. LTG Duration 07/12/22 Assessment Summary Assessment Pt presents with multiple woman's health dysfunctions and complaint of PF pain with assessment of trunk and hip ROM; therefore held manual assessment of PF and DR today and will assess at her next appointment. She shows signs and symptoms of stress urinary incontinence, bowel dysfunction of constipation, pelvic floor pain of the abdomen and perineum, core weakness and instability with doming of her abdomen with transfers, pubic symphasis instability, and probable Diastasis Rectus. Hindering her rehabilitation program is her current and hormonal status. She is also a busy mother of a baby and toddler less than a year apart in age. It is expected that the pt's rehabilitation will take longer than expected due to her multiple areas of dysfunction. The pt will benefit from skilled physical therapy to decrease her urinary incontinence, improve bowel function, decrease pelvic pain improve core and pubic symphasis stability and reduce her diastasis rectus and educate the pt in a self senior living program. The pt may need an external support to minimize her pubic symphysis pain while she is still . Physical Therapy Plan Frequency and Duration Frequency of Treatment 1x/Week Plan of Care Start Date 01/13/22 Plan of Care End Date 07/12/22 Therapeutic Interventions Therapeutic Interventions Aquatic Therapy,Home Exercise Program,Joint Mobilizations, Manual Therapy,Neuromuscular Re-education,Patient/Caregiver Education,Self-Care/Home Management,Soft Tissue Mobilization,Taping, Therapeutic Activities, Therapeutic Exercises Modalities Biofeedback,Cold Pack/Ice Massage,Electric Stimulation, Hot Packs Next Visit Focus/Plan Next Note Type Treatment Note Next Visit Plan If pt tolerates: Assess Internally PF for prolapse, pain, strength, bowel dysfunction and her DR. Try belting pt for Pub symphasis pain reduction and recommend belt if appropriate. Review bladder diary and make recommendation for proper fluid/food intake. Education: PF hygiene, PF care, proper BM with modifications as needed, bowel care and program, DR education, proper transfers for DR protection, postural changes associated to pregancy . Ex: Bowel massage, proper breathing, PF strengthening, Core/TA stab, Pelvic stab ( start Roll in/outs if tolerated) hip strengthening. Improve painfree hip and trunk mobility and posture. Plan of Care Dates Plan of Care Start Date 01/13/22 Plan of Care End Date 07/12/22 Electronically Signed by: Iva Reyes, PT 01/13/22 [id number] If you are in agreement with this Plan of Care, please return a signed and dated copy. I have reviewed this Plan of Care and certify that the skilled therapy services above are required to meet the patient?s needs. Physician Signature Date Printed Name and Credentials Clinical Instructor Signature Printed Name and Credentials
--- NOTE | 2022-02-13 16:54 | PT.OTN ---
Current Diagnoses Other female genital prolapse (02/13/22) Physical Therapy Treatment Note PT-OP-A Visit Information Start: 01/02/22 18:07 Freq: Status: Active Protocol: Document 02/13/22 15:25 LRN (Rec: 02/13/22 16:53 LRN [id number]) Out-Patient Physical Therapy Visit Information Visit Information Visit Type Treatment Note Visit Start Time 15:25 Visit Stop Time 16:08 Total Visit Minutes 43 Visit Number 2 Evaluation Information Evaluation Date 01/13/22 Precautions Precautions Depression controlled with meds, 05/26/21. Pubic symphasis instability, DR concerns & pelvic pain s/p pregnancies, currently . Baby and toddler less than a year apart in age. PT-OP-B Current Condition Start: 01/02/22 18:07 Freq: Status: Active Protocol: Document 01/13/22 14:33 LRN (Rec: 01/13/22 18:18 LRN [id number]) Current Condition History of Current Condition Onset Date 06/19/20 & 05/26/21. Current Complaints Urinary leakage with lifting, cough, sneeze, sexual intercourse. History of Current Condition Pt just had 2 babies back to back, first was almost 10 #. Has weakened PF and leaks urine with lifting too heavy and with sexual intercourse and with cough or sneeze and with exercise. 1st was vaginal delivery (10# baby) with 2nd degree tears requiring stitches. Urinary leakage after childbirth. 2nd was a due to preclampsia with urinary leakage about the same. Pubic pain during pregnancies and was leaking urine with walking . 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 HBP during , but now normal. Currently . Prior Treatments and Tests None Developmental History Developmental History Childbirths 06/19/20 and both boys. Treatment Goals Patient/Caregiver Goals Pt goals: -Eliminate urinary leakage -Minimize her diastasis rectus . -Decrease or eliminate PF pain in pernium and abdomen. -Independent HEP of self care for PF and abdomen. Prior Functional Status Baseline Function- Other Prior to first , no urinary leakage. Prior to second Urinary leakage with lifting, cough, sneeze, sexual intercourse. Post- depression. PF pain with intercourese Current Functional Impairments (Reported) Functional Limitations- Other Urinary leakage with lifting, cough, sneeze, sexual intercourse. Post- depression. PF pain with intercourse in lower abdomen and around vaginal canal. Pain is throbbing, lasts 1-2 hours. Personal Factors Other Personal Factors That May Effect Depression controlled with Therapy/Recovery meds, - 05/26/21. PT-OP-C Subjective Start: 01/02/22 18:07 Freq: Status: Active Protocol: Document 02/13/22 15:25 LRN (Rec: 02/13/22 16:53 LRN [id number]) OP-PT Subjective Patient Comments Patient Comments Doing more Kegels and felt more leakage. PT-OP-I Pelvic Floor Start: 01/02/22 18:07 Freq: Status: Active Protocol: Document 02/13/22 15:25 LRN (Rec: 02/13/22 16:53 LRN [id number]) Pelvic Floor Assessment Urine Pelvic Floor Surgery Yes: Grade 2 tear with 1st Urinary Symptoms Pain Leakage Cause Cough,Exercise,Lifting,Sneeze Bowel Bowel Symptoms Constipation,Pain Bowel Movement Frequency 1x every 3-4 days. Previously was voiding daily. Bryant Stool Chart Type 1-7 1 Pelvic Clock Pelvic Clock 12-3 Tightness Pelvic Clock 3-6 Tenderness,Tightness Pelvic Clock 6-9 Tenderness,Tightness Pelvic Clock 9-12 Hypertonic,Tightness Pelvic Clock Other Most tender from Pelvic Clock 3-6 & 6-9. Contraction Ability Manual Muscle Testing Left 2 Manual Muscle Testing Right 3 Manual Muscle Testing Anterior 3 Manual Muscle Testing Posterior 1 Muscle Endurance (Seconds) 1 Number of Quick Contractions In 10 2 Seconds PT-OP-J Posture/Palpation/Skin Start: 01/02/22 18:07 Freq: Status: Active Protocol: Document 01/13/22 14:33 LRN (Rec: 01/13/22 18:18 LRN [id number]) Posture Evaluation Position Standing Head/C-Spine Posture Side Bent Left,Forward Head L-Spine Posture Increased Lordosis,Shifted Right Shoulder Posture (L) Elevated Scapula Posture (L) Elevated Arm Posture (L) Internally Rotated,(R) Internally Rotated Pelvis Posture Anteriorly Tilted,(L) Rotated Posterior,(L) Iliac Crest Superior,(L) PSIS Posterior Knee Posture (L) Genu Valgus,(R) Genu Valgus,(L) Genu Recurvatum,(R) Genu Recurvatum Comments Posture Comments Mid spine scoliosis (R apex upper curve, L apex lower curve), Femur IR'd, lower legs ER'd. Sacrum posterior on L side. PT-OP-K Range of Motion Start: 01/02/22 18:07 Freq: Status: Active Protocol: Document 01/13/22 14:33 LRN (Rec: 01/13/22 18:18 LRN [id number]) Lumbar Spine Range of Motion Lumbar Spine Active Degrees Flexion 100 Extension 15 Lateral Flexion Left 28 Lateral Flexion Right 23 Hip Goniometric Range of Motion Hip Right Passive Testing Position Supine Flexion w/Knee Flexed 100 Abduction 50 Internal Rotation 45 External Rotation 45 Left Passive Testing Position Supine Abduction 45 Internal Rotation 30 External Rotation 50 Comments Pain in L groin with Passive hip ER. PT-OP-M Strength Start: 01/02/22 18:07 Freq: Status: Active Protocol: Document 01/13/22 14:33 LRN (Rec: 01/13/22 18:18 LRN [id number]) Trunk Strength Trunk Manual Muscle Testing Testing Position Supine Core Stabilization Doming of core with transfers sit<>supine. Hip Strength Hip Manual Muscle Testing Right External Rotation 3+ Fair+ Internal Rotation 3 Fair Comments Pain in groin and lateral hips with MMT of hip IR Left External Rotation 3 Fair Internal Rotation 3 Fair Comments Pain in groin and lateral hips with MMT of hip IR and active ER PT-OP-Q Treatments Start: 01/02/22 18:07 Freq: Status: Active Protocol: Document 02/13/22 15:25 LRN (Rec: 02/13/22 16:53 LRN [id number]) Therapeutic Exercises Supine Exercises Happy Baby Pose Supine Exercise Name Happy Baby Pose Reps/Minutes 2' Comments Extra time to determine max tolerated stretch for 60 Manual Therapy Treatment Soft Tissue Mobilization Abdomen Body Location Abdomen Mobilization Type Myofascial Release Intensity/Depth Superficial Body Position Supine Comments Knees on bolster. Cesarian section scar mob Body Location Scar mob Mobilization Type Myofascial Release,Sustained Pressure External PF stretch Body Location Jai External PF stretch Mobilization Type Myofascial Release,Sustained Pressure Intensity/Depth Superficial>Moderate Body Position Hooklying PF stretch Body Location Internal Levator Ani stretching Mobilization Type Myofascial Release,Trigger Point Release Intensity/Depth Superficial Body Position Hooklying Self-Care/Home Management Treatment Education Patient Education Home Exercise Program Activities Self-Care/Home Management Activities Issued handouts for self care bowel massage and Bryant stool scale. Pt to monitor BM types and to do Bowel Massage . PT-OP-T Assessment and Plan Start: 01/02/22 18:07 Freq: Status: Active Protocol: Document 02/13/22 15:25 LRN (Rec: 02/13/22 16:53 LRN [id number]) Physical Therapy Assessment Goals Five Impairment Constipation Impairment Type 1 BM's BM once every 3 days. Short Term Goal (STG) BM daily STG Duration 03/01/22 Insurance Processing Clerk Goal (LTG) Type 3-4 BM's LTG Duration 04/13/22 Four Impairment Diastasis Rectus Impairment Doming of abdomen and pain in lower abdomen with supine lying and transfers. Short Term Goal (STG) Strengthen TA resulting in no doming with transfers STG Duration 03/14/22 [facility] Goal (LTG) Minimal to no doming with exercise and minimize diastasis rectus. LTG Duration 07/12/22 Three Impairment Urinary leakage Impairment Urinary leakage with lifting too heavy and with sexual intercourse and with cough or sneeze and with exercise. Short Term Goal (STG) Pt able to maintain urinary continence with lifting of baby & coughing. STG Duration 03/14/22 [facility] Goal (LTG) Eliminate urinary leakage with sexual intercourse, and 2 months or longer s/p . LTG Duration 07/12/22 Two Impairment PF pain Impairment Pain in lower abdomen, vaginal region inside, and sometimes around anus, rated 7/10. Cramping pain in abdomen, Throbbing pain at perineum. Short Term Goal (STG) Pt educated in proper bowel mgmt/care, fluid recommendations, vulvar care and genital hygiene. STG Duration 02/12/22 Insurance Processing Clerk Goal (LTG) Decrease to no greater than 1/ 10 or eliminate PF pain in perineum and abdomen. LTG Duration 04/13/22 One Impairment Lacks appropriate self care HEP. Short Term Goal (STG) Pt will be educated in proper transfers to protect her DR and to stabilize her core/PF STG Duration 02/12/22 [facility] Goal (LTG) Independent HEP of self care of PF, jai hip, core strengthening and abdominal self tissue mobilization. 02/13/22: HEP: Bowel massage, I/S in Happy Baby Pose. LTG Duration 07/12/22 Assessment Summary Assessment 21 yo with multiple woman's health dysfunctions and complaints of PF pain, bowel dysfunction of constipation, pelvic floor pain of the abdomen and perineum, core weakness and instability with doming of her abdomen with transfers, pubic symphasis instability, and probable Diastasis Rectus. Pt had back pain and pressure in anal region with L side (PF clock 3 -6) PF stretching. She has tightness and discomfort at well healed scar. Not able to assess DR due to time constraints. Physical Therapy Plan Frequency and Duration Frequency of Treatment 1x/Week Plan of Care Start Date 01/13/22 Plan of Care End Date 07/12/22 Next Visit Focus/Plan Next Note Type Treatment Note Next Visit Plan Review Bowel massage, stool types, & bladder diary, make recommendations for fluid/ food intake. If pt tolerates: Assess her DR and EMG biofeedback for relaxation. Wand for PF stretching if manual stretching is helpful. Try belting pt for Pub symphasis pain reduction and recommend belt if appropriate. Education: PF hygiene, PF care, education in BM with modifications if needed ( squatty potty), bowel care and program, DR education, proper transfers for DR protection, postural changes associated to pregancy. Ex: Bowel massage, proper breathing, PF strengthening, Core/TA stab, Pelvic stab ( start Roll in/outs if tolerated) hip strengthening. Improve painfree hip and trunk mobility and posture.
--- NOTE | 2022-03-03 15:57 | PT.OTN ---
Current Diagnoses Other female genital prolapse (03/03/22) Physical Therapy Treatment Note PT-OP-A Visit Information Start: 01/02/22 18:07 Freq: Status: Active Protocol: Document 03/03/22 14:41 LRN (Rec: 03/03/22 15:56 LRN [id number]) Out-Patient Physical Therapy Visit Information Visit Information Visit Type Treatment Note Visit Start Time 14:41 Visit Stop Time 15:23 Total Visit Minutes 44 Visit Number 3 Evaluation Information Evaluation Date 01/13/22 Precautions Precautions Depression controlled with meds, 05/26/21. Pubic symphasis instability, DR concerns & pelvic pain s/p pregnancies, currently . Baby and toddler less than a year apart in age. PT-OP-B Current Condition Start: 01/02/22 18:07 Freq: Status: Active Protocol: Document 01/13/22 14:33 LRN (Rec: 01/13/22 18:18 LRN [id number]) Current Condition History of Current Condition Onset Date 06/19/20 & 05/26/21. Current Complaints Urinary leakage with lifting, cough, sneeze, sexual intercourse. History of Current Condition Pt just had 2 babies back to back, first was almost 10 #. Has weakened PF and leaks urine with lifting too heavy and with sexual intercourse and with cough or sneeze and with exercise. 1st was vaginal delivery (10# baby) with 2nd degree tears requiring stitches. Urinary leakage after childbirth. 2nd was a due to preclampsia with urinary leakage about the same. Pubic pain during pregnancies and was leaking urine with walking . 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 HBP during , but now normal. Currently . Prior Treatments and Tests None Developmental History Developmental History Childbirths 06/19/20 and both boys. Treatment Goals Patient/Caregiver Goals Pt goals: -Eliminate urinary leakage -Minimize her diastasis rectus . -Decrease or eliminate PF pain in pernium and abdomen. -Independent HEP of self care for PF and abdomen. Prior Functional Status Baseline Function- Other Prior to first , no urinary leakage. Prior to second Urinary leakage with lifting, cough, sneeze, sexual intercourse. Post- depression. PF pain with intercourese Current Functional Impairments (Reported) Functional Limitations- Other Urinary leakage with lifting, cough, sneeze, sexual intercourse. Post- depression. PF pain with intercourse in lower abdomen and around vaginal canal. Pain is throbbing, lasts 1-2 hours. Personal Factors Other Personal Factors That May Effect Depression controlled with Therapy/Recovery meds, - 05/26/21. PT-OP-C Subjective Start: 01/02/22 18:07 Freq: Status: Active Protocol: Document 03/03/22 14:41 LRN (Rec: 03/03/22 15:56 LRN [id number]) OP-PT Subjective Patient Comments Patient Comments Doing massages and drinking more water and limiting caffeine intake. Massages make the back feel a little better. Still having problems with BM. Voiding every couple days. Hasn't leaked tryig to get to bathroom. Leaks if bends over to medicinal plant picker 30# son. States K-tape stomach lifted up w/less abdominal pressure, PT-OP-I Pelvic Floor Start: 01/02/22 18:07 Freq: Status: Active Protocol: Document 02/13/22 15:25 LRN (Rec: 02/13/22 16:53 LRN [id number]) Pelvic Floor Assessment Urine Pelvic Floor Surgery Yes: Grade 2 tear with 1st Urinary Symptoms Pain Leakage Cause Cough,Exercise,Lifting,Sneeze Bowel Bowel Symptoms Constipation,Pain Bowel Movement Frequency 1x every 3-4 days. Previously was voiding daily. [place] Stool Chart Type 1-7 1 Pelvic Clock Pelvic Clock 12-3 Tightness Pelvic Clock 3-6 Tenderness,Tightness Pelvic Clock 6-9 Tenderness,Tightness Pelvic Clock 9-12 Hypertonic,Tightness Pelvic Clock Other Most tender from Pelvic Clock 3-6 & 6-9. Contraction Ability Manual Muscle Testing Left 2 Manual Muscle Testing Right 3 Manual Muscle Testing Anterior 3 Manual Muscle Testing Posterior 1 Muscle Endurance (Seconds) 1 Number of Quick Contractions In 10 2 Seconds PT-OP-J Posture/Palpation/Skin Start: 01/02/22 18:07 Freq: Status: Active Protocol: Document 01/13/22 14:33 LRN (Rec: 01/13/22 18:18 LRN [id number]) Posture Evaluation Position Standing Head/C-Spine Posture Side Bent Left,Forward Head L-Spine Posture Increased Lordosis,Shifted Right Shoulder Posture (L) Elevated Scapula Posture (L) Elevated Arm Posture (L) Internally Rotated,(R) Internally Rotated Pelvis Posture Anteriorly Tilted,(L) Rotated Posterior,(L) Iliac Crest Superior,(L) PSIS Posterior Knee Posture (L) Genu Valgus,(R) Genu Valgus,(L) Genu Recurvatum,(R) Genu Recurvatum Comments Posture Comments Mid spine scoliosis (R apex upper curve, L apex lower curve), Femur IR'd, lower legs ER'd. Sacrum posterior on L side. PT-OP-K Range of Motion Start: 01/02/22 18:07 Freq: Status: Active Protocol: Document 01/13/22 14:33 LRN (Rec: 01/13/22 18:18 LRN [id number]) Lumbar Spine Range of Motion Lumbar Spine Active Degrees Flexion 100 Extension 15 Lateral Flexion Left 28 Lateral Flexion Right 23 Hip Goniometric Range of Motion Hip Right Passive Testing Position Supine Flexion w/Knee Flexed 100 Abduction 50 Internal Rotation 45 External Rotation 45 Left Passive Testing Position Supine Abduction 45 Internal Rotation 30 External Rotation 50 Comments Pain in L groin with Passive hip ER. PT-OP-M Strength Start: 01/02/22 18:07 Freq: Status: Active Protocol: Document 01/13/22 14:33 LRN (Rec: 01/13/22 18:18 LRN [id number]) Trunk Strength Trunk Manual Muscle Testing Testing Position Supine Core Stabilization Doming of core with transfers sit<>supine. Hip Strength Hip Manual Muscle Testing Right External Rotation 3+ Fair+ Internal Rotation 3 Fair Comments Pain in groin and lateral hips with MMT of hip IR Left External Rotation 3 Fair Internal Rotation 3 Fair Comments Pain in groin and lateral hips with MMT of hip IR and active ER PT-OP-Q Treatments Start: 01/02/22 18:07 Freq: Status: Active Protocol: Document 03/03/22 14:41 LRN (Rec: 03/03/22 15:56 LRN [id number]) Therapeutic Exercises Supine Exercises TA Supine Exercise Name TA tightening Reps/Minutes 3' Comments Pt not able with cuing, breathing cuing, or phys feedback Sidelying Exercises TA Sidelying Exercise Name TA tightening Reps/Minutes 5' Sitting Exercises TA Sitting Exercise Name TA tightening Reps/Minutes 2' Manual Therapy Treatment Soft Tissue Mobilization ILU massage Body Location ILU massage Mobilization Type Other Intensity/Depth Moderate Body Position Supine Comments Knees on bolster. Abdomen Body Location Bowel Massage & pt self BM. Mobilization Type Myofascial Release Intensity/Depth Superficial Body Position Supine Comments Knees on bolster. Cesarian section scar mob Body Location Scar mob Mobilization Type Myofascial Release,Sustained Pressure Intensity/Depth Superficial Body Position Hooklying Comments Restriction with upward and L lateral glide improved after STM. Pt performed self STM with v & phy cuing on hand placement and direction of mob. Taping scar Body Location scar Treatment Focus Improve tissue mobility Type of Tape Kinesio Tape Skin Inspection Good Self-Care/Home Management Treatment Education Patient Education Home Exercise Program Activities Self-Care/Home Management Activities I/S pt to do bladder diary and re-issued diary. I/S pt in TA tightening with HO issued for written directions for tightening. PT-OP-T Assessment and Plan Start: 01/02/22 18:07 Freq: Status: Active Protocol: Document 03/03/22 14:41 LRN (Rec: 03/03/22 15:56 LRN [id number]) Physical Therapy Assessment Goals Five Impairment Constipation Impairment Type 1 BM's BM once every 3 days. Short Term Goal (STG) BM daily STG Duration 03/01/22 [employer] Work[employer] Goal (LTG) Type 3-4 BM's LTG Duration 04/13/22 Four Impairment Diastasis Rectus Impairment Doming of abdomen and pain in lower abdomen with supine lying and transfers. Short Term Goal (STG) Strengthen TA resulting in no doming with transfers. 03/03/22: Initiated TA tightening. STG Duration 03/14/22 progressed 03/03/22. [employer] Worker Goal (LTG) Minimal to no doming with exercise and minimize diastasis rectus. LTG Duration 07/12/22 Three Impairment Urinary leakage Impairment Urinary leakage with lifting too heavy and with sexual intercourse and with cough or sneeze and with exercise. Short Term Goal (STG) Pt able to maintain urinary continence with lifting of baby & coughing. 03/03/22: Leaking but not as much. STG Duration 03/14/22 [employer] Goal (LTG) Eliminate urinary leakage with sexual intercourse, and 2 months or longer s/p . LTG Duration 07/12/22 Two Impairment PF pain Impairment Pain in lower abdomen, vaginal region inside, and sometimes around anus, rated 7/10. Cramping pain in abdomen, Throbbing pain at perineum. Short Term Goal (STG) Pt educated in proper bowel mgmt/care, fluid recommendations, vulvar care and genital hygiene. STG Duration 02/12/22 [employer] Worker Goal (LTG) Decrease to no greater than 1/ 10 or eliminate PF pain in perineum and abdomen. LTG Duration 04/13/22 One Impairment Lacks appropriate self care HEP. Short Term Goal (STG) Pt will be educated in proper transfers to protect her DR and to stabilize her core/PF. 03/03/22: Trained for use of TA with transfers. STG Duration 02/12/22 progressed 03/03/22. [employer] Worker Goal (LTG) Independent HEP of self care of PF, kayley hip, core strengthening and abdominal self tissue mobilization. 02/13/22: HEP: Bowel massage, I/S in Happy Baby Pose. LTG Duration 07/12/22 Assessment Summary Assessment Pt with multiple woman's health dysfunctions: c/o PF pain, bowel dysfunction ( constipation), pelvic floor pain of the abdomen and perineum, core weakness and instability with doming of her abdomen with transfers, pubic symphasis instability, and probable Diastasis Rectus. C- Scar mobility has improved with a lot less pain for STM, helped by K-tape. Pt doiing BM massage wrong and did not do bladder diary again. No change with constipation, although pt not tracking fluids/food intake/output. Physical Therapy Plan Frequency and Duration Frequency of Treatment 1x/Week Plan of Care Start Date 01/13/22 Plan of Care End Date 07/12/22 Next Visit Focus/Plan Next Note Type Treatment Note Next Visit Plan Review again Bowel massage, and stool types/bladder diary and make recommendations for fluid/food intake. If pt tolerates: Assess DR and EMG biofeedback for relaxation. Wand for PF stretching if manual stretching is helpful. Try belting pt for Pub symphasis pain reduction and recommend belt if appropriate. Education: PF hygiene, PF care, education in BM with modifications if needed ( squatty potty), bowel care and program, DR education, proper transfers for DR protection, postural changes associated to pregancy. Ex: Bowel massage, proper breathing, PF strengthening, Core/TA stab, Pelvic stab ( start Roll in/outs if tolerated) hip strengthening. Improve painfree hip and trunk mobility and posture.
--- NOTE | 2022-04-04 10:35 | PT.OTN ---
Current Diagnoses Other female genital prolapse (04/04/22) Physical Therapy Treatment Note PT-OP-A Visit Information Start: 01/02/22 18:07 Freq: Status: Active Protocol: Document 04/04/22 08:13 LRN (Rec: 04/04/22 10:29 LRN [id number]) Out-Patient Physical Therapy Visit Information Visit Information Visit Type Treatment Note Visit Start Time 09:10 Visit Stop Time 10:00 Total Visit Minutes 50 Evaluation Information Evaluation Date 01/13/22 Precautions Precautions Depression controlled with meds, 05/26/21. Pubic symphasis instability, DR concerns & pelvic pain s/p pregnancies, currently . Baby and toddler less than a year apart in age. PT-OP-B Current Condition Start: 01/02/22 18:07 Freq: Status: Active Protocol: Document 01/13/22 14:33 LRN (Rec: 01/13/22 18:18 LRN [id number]) Current Condition History of Current Condition Onset Date 06/19/20 & 05/26/21. Current Complaints Urinary leakage with lifting, cough, sneeze, sexual intercourse. History of Current Condition Pt just had 2 babies back to back, first was almost 10 #. Has weakened PF and leaks urine with lifting too heavy and with sexual intercourse and with cough or sneeze and with exercise. 1st was vaginal delivery (10# baby) with 2nd degree tears requiring stitches. Urinary leakage after childbirth. 2nd was a due to preclampsia with urinary leakage about the same. Pubic pain during pregnancies and was leaking urine with walking . 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 HBP during , but now normal. Currently . Prior Treatments and Tests None Developmental History Developmental History Childbirths 06/19/20 and both boys. Treatment Goals Patient/Caregiver Goals Pt goals: -Eliminate urinary leakage -Minimize her diastasis rectus . -Decrease or eliminate PF pain in pernium and abdomen. -Independent HEP of self care for PF and abdomen. Prior Functional Status Baseline Function- Other Prior to first , no urinary leakage. Prior to second Urinary leakage with lifting, cough, sneeze, sexual intercourse. Post- depression. PF pain with intercourese Current Functional Impairments (Reported) Functional Limitations- Other Urinary leakage with lifting, cough, sneeze, sexual intercourse. Post- depression. PF pain with intercourse in lower abdomen and around vaginal canal. Pain is throbbing, lasts 1-2 hours. Personal Factors Other Personal Factors That May Effect Depression controlled with Therapy/Recovery meds, - 05/26/21. PT-OP-C Subjective Start: 01/02/22 18:07 Freq: Status: Active Protocol: Document 04/04/22 08:13 LRN (Rec: 04/04/22 10:29 LRN [id number]) OP-PT Subjective Patient Comments Patient Comments When bladder is super full, she is leaking a lot. BM's the same. States pubic pain has been good, only 1x after day of constipation. PT-OP-I Pelvic Floor Start: 01/02/22 18:07 Freq: Status: Active Protocol: Document 02/13/22 15:25 LRN (Rec: 02/13/22 16:53 LRN [id number]) Pelvic Floor Assessment Urine Pelvic Floor Surgery Yes: Grade 2 tear with 1st Urinary Symptoms Pain Leakage Cause Cough,Exercise,Lifting,Sneeze Bowel Bowel Symptoms Constipation,Pain Bowel Movement Frequency 1x every 3-4 days. Previously was voiding daily. [place] Stool Chart Type 1-7 1 Pelvic Clock Pelvic Clock 12-3 Tightness Pelvic Clock 3-6 Tenderness,Tightness Pelvic Clock 6-9 Tenderness,Tightness Pelvic Clock 9-12 Hypertonic,Tightness Pelvic Clock Other Most tender from Pelvic Clock 3-6 & 6-9. Contraction Ability Manual Muscle Testing Left 2 Manual Muscle Testing Right 3 Manual Muscle Testing Anterior 3 Manual Muscle Testing Posterior 1 Muscle Endurance (Seconds) 1 Number of Quick Contractions In 10 2 Seconds PT-OP-J Posture/Palpation/Skin Start: 01/02/22 18:07 Freq: Status: Active Protocol: Document 04/04/22 08:13 LRN (Rec: 04/04/22 10:33 LRN [id number]) Palpation Assessment Location Abdomen Palpation Location Diastasis Rectus Palpation Details Above Umbilicus (finger widths ): 4 above 1.5, 3 above 2.5, 2 above 3, 1 above 2.5. Below Umbilicus (finger widths ): 2 below 0, 1 below 2.5. PT-OP-K Range of Motion Start: 01/02/22 18:07 Freq: Status: Active Protocol: Document 01/13/22 14:33 LRN (Rec: 01/13/22 18:18 LRN [id number]) Lumbar Spine Range of Motion Lumbar Spine Active Degrees Flexion 100 Extension 15 Lateral Flexion Left 28 Lateral Flexion Right 23 Hip Goniometric Range of Motion Hip Right Passive Testing Position Supine Flexion w/Knee Flexed 100 Abduction 50 Internal Rotation 45 External Rotation 45 Left Passive Testing Position Supine Abduction 45 Internal Rotation 30 External Rotation 50 Comments Pain in L groin with Passive hip ER. PT-OP-M Strength Start: 01/02/22 18:07 Freq: Status: Active Protocol: Document 01/13/22 14:33 LRN (Rec: 01/13/22 18:18 LRN [id number]) Trunk Strength Trunk Manual Muscle Testing Testing Position Supine Core Stabilization Doming of core with transfers sit<>supine. Hip Strength Hip Manual Muscle Testing Right External Rotation 3+ Fair+ Internal Rotation 3 Fair Comments Pain in groin and lateral hips with MMT of hip IR Left External Rotation 3 Fair Internal Rotation 3 Fair Comments Pain in groin and lateral hips with MMT of hip IR and active ER PT-OP-Q Treatments Start: 01/02/22 18:07 Freq: Status: Active Protocol: Document 04/04/22 08:13 LRN (Rec: 04/04/22 10:29 LRN [id number]) Therapeutic Exercises Supine Exercises LE Roll in/out-TA tight Supine Exercise Name Roll in/outs for breathing and TA tightening. Side bilateral Reps/Minutes 5' TA Supine Exercise Name TA tightening - Head lifts Reps/Minutes 5' Comments Tightening visible in upper abdomen Other Exercises Log roll Other Exercise Name DR protection during Log Roll transfer Reps/Minutes 5' Manual Therapy Treatment Soft Tissue Mobilization ILU massage Body Location ILU massage self massage after review Mobilization Type Other Intensity/Depth Moderate Body Position Supine Comments Knees on bolster. Abdomen Body Location Bowel Massage & pt self BM. Mobilization Type Myofascial Release Intensity/Depth Superficial Body Position Supine Comments Knees on bolster. Cesarian section scar mob Body Location Scar mob Mobilization Type Myofascial Release,Sustained Pressure Intensity/Depth Superficial Body Position Hooklying Comments Restriction with L lateral glide>upward glide improved after STM. Pt performed self STM with v & phy cuing on heel of hand and direction of mob review. Self-Care/Home Management Treatment Education Patient Education Home Exercise Program Other Education Educated, discussed & reviewed Bowel Program. Discussed fluid management of 1/2 body wgt in oz's with additional fluid if drinking caffeine/alcohol. Activities Self-Care/Home Management Activities I/S pt to do bowel/bladder diary. I/S pt in TA tightening and DR protection with transfers ( cross arm support). I/S pt to try Bowel program. Issued & reviewed LE roll in/ out with TA tightnening ex. Issued & reviewed Bowel Program. PT-OP-T Assessment and Plan Start: 01/02/22 18:07 Freq: Status: Active Protocol: Document 04/04/22 08:13 LRN (Rec: 04/04/22 10:29 LRN [id number]) Physical Therapy Assessment Goals Five Impairment Constipation Impairment Type 1 BM's BM once every 3 days. Short Term Goal (STG) BM daily STG Duration 03/01/22 Nursing Home Goal (LTG) Type 3-4 BM's LTG Duration 04/13/22 Four Impairment Diastasis Rectus Impairment Doming of abdomen and pain in lower abdomen with supine lying and transfers. Short Term Goal (STG) Strengthen TA resulting in no doming with transfers. 03/03/22: Initiated TA tightening. STG Duration 03/14/22 progressed 03/03/22. 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 LTG Duration 07/12/22 Three Impairment Urinary leakage Impairment Urinary leakage with lifting too heavy and with sexual intercourse and with cough or sneeze and with exercise. Short Term Goal (STG) Pt able to maintain urinary continence with lifting of baby & coughing. 03/03/22: Leaking but not as much. 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 LTG Duration 07/12/22 Two Impairment PF pain Impairment Pain in lower abdomen, vaginal region inside, and sometimes around anus, rated 7/10. Cramping pain in abdomen, Throbbing pain at perineum. Short Term Goal (STG) Pt educated in proper bowel mgmt/care, fluid recommendations, vulvar care and genital hygiene. 04/04/22: Pt educated in Bowel program and discussed fluid recommendation. STG Duration 02/12/22 progressed 04/04/22 Wood Preserving Plant Laborer Goal (LTG) Decrease to no greater than 1/ 10 or eliminate PF pain in perineum and abdomen. LTG Duration 04/13/22 One Impairment Lacks appropriate self care HEP. Short Term Goal (STG) Pt will be educated in proper transfers to protect her DR and to stabilize her core/PF. 03/03/22: Trained for use of TA with transfers. 04/04/22: Educated pt in use of hands to support and I/S in use of towel to support. 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 02/13/22: HEP: Bowel massage, I/S in Happy Baby Pose. 04/04/22: HEP: LE Roll in/out for TA tightening. LTG Duration 07/12/22 Assessment Summary Assessment Pt has not been consistent with HEP due to holiday stress and inclement weather stresses; therefore she needed review of Bowel massage ex's, and Bladder/Bowel diary not completed or brought to appt. DR primarily above umbilicus to sternum (2.5-1.5 finger widths respectively) and 1 below umbilicus (2.5 finger width). C-scar decreased mobility on L side. Physical Therapy Plan Frequency and Duration Frequency of Treatment 1x/Week Plan of Care Start Date 01/13/22 Plan of Care End Date 07/12/22 Next Visit Focus/Plan Next Note Type Treatment Note Next Visit Plan Quick review of Bowel massage/ ILU massage if pt unfamiliar with HEP. Review stool/ bladder diary and make recommendations for fluid/food intake. Assess adherence to Bowel program and proper breathing with/without Roll in /outs. Manual: C-sect scar mob f/b K- taping, Internal Levator Ani stretching, Jai External PF stretch. If pt tolerates: Assess EMG biofeedback for relaxation. Wand for PF stretching if manual stretching is helpful. If needed, try belting pt for Pub symphasis pain reduction and use. Education: PF hygiene, PF care, education in BM with modifications if needed ( squatty potty), issue HO for proper transfers for DR protection with towel, postural changes associated to pregancy. Ex: hip strengthening, proper breathing, PF strengthening, Core/TA stab, Pelvic stab (start Roll in/ outs if tolerated). Improve painfree hip and trunk mobility and posture.
--- NOTE | 2022-04-04 13:38 | PT.OTN ---
Current Diagnoses Other female genital prolapse (04/04/22) Physical Therapy Treatment Note PT-OP-A Visit Information Start: 01/02/22 18:07 Freq: Status: Active Protocol: Document 04/04/22 08:13 LRN (Rec: 04/04/22 10:29 LRN [id number]) Out-Patient Physical Therapy Visit Information Visit Information Visit Type Treatment Note Visit Start Time 09:10 Visit Stop Time 10:00 Total Visit Minutes 50 Evaluation Information Evaluation Date 01/13/22 Precautions Precautions Depression controlled with meds, 05/26/21. Pubic symphasis instability, DR concerns & pelvic pain s/p pregnancies, currently . Baby and toddler less than a year apart in age. PT-OP-B Current Condition Start: 01/02/22 18:07 Freq: Status: Active Protocol: Document 01/13/22 14:33 LRN (Rec: 01/13/22 18:18 LRN [id number]) Current Condition History of Current Condition Onset Date 06/19/20 & 05/26/21. Current Complaints Urinary leakage with lifting, cough, sneeze, sexual intercourse. History of Current Condition Pt just had 2 babies back to back, first was almost 10 #. Has weakened PF and leaks urine with lifting too heavy and with sexual intercourse and with cough or sneeze and with exercise. 1st was vaginal delivery (10# baby) with 2nd degree tears requiring stitches. Urinary leakage after childbirth. 2nd was a due to preclampsia with urinary leakage about the same. Pubic pain during pregnancies and was leaking urine with walking . 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 HBP during , but now normal. Currently . Prior Treatments and Tests None Developmental History Developmental History Childbirths 06/19/20 and both boys. Treatment Goals Patient/Caregiver Goals Pt goals: -Eliminate urinary leakage -Minimize her diastasis rectus . -Decrease or eliminate PF pain in pernium and abdomen. -Independent HEP of self care for PF and abdomen. Prior Functional Status Baseline Function- Other Prior to first , no urinary leakage. Prior to second Urinary leakage with lifting, cough, sneeze, sexual intercourse. Post- depression. PF pain with intercourese Current Functional Impairments (Reported) Functional Limitations- Other Urinary leakage with lifting, cough, sneeze, sexual intercourse. Post- depression. PF pain with intercourse in lower abdomen and around vaginal canal. Pain is throbbing, lasts 1-2 hours. Personal Factors Other Personal Factors That May Effect Depression controlled with Therapy/Recovery meds, - 05/26/21. PT-OP-C Subjective Start: 01/02/22 18:07 Freq: Status: Active Protocol: Document 04/04/22 08:13 LRN (Rec: 04/04/22 10:29 LRN [id number]) OP-PT Subjective Patient Comments Patient Comments When bladder is super full, she is leaking a lot. BM's the same. States pubic pain has been good, only 1x after day of constipation. PT-OP-I Pelvic Floor Start: 01/02/22 18:07 Freq: Status: Active Protocol: Document 02/13/22 15:25 LRN (Rec: 02/13/22 16:53 LRN [id number]) Pelvic Floor Assessment Urine Pelvic Floor Surgery Yes: Grade 2 tear with 1st Urinary Symptoms Pain Leakage Cause Cough,Exercise,Lifting,Sneeze Bowel Bowel Symptoms Constipation,Pain Bowel Movement Frequency 1x every 3-4 days. Previously was voiding daily. [place] Stool Chart Type 1-7 1 Pelvic Clock Pelvic Clock 12-3 Tightness Pelvic Clock 3-6 Tenderness,Tightness Pelvic Clock 6-9 Tenderness,Tightness Pelvic Clock 9-12 Hypertonic,Tightness Pelvic Clock Other Most tender from Pelvic Clock 3-6 & 6-9. Contraction Ability Manual Muscle Testing Left 2 Manual Muscle Testing Right 3 Manual Muscle Testing Anterior 3 Manual Muscle Testing Posterior 1 Muscle Endurance (Seconds) 1 Number of Quick Contractions In 10 2 Seconds PT-OP-J Posture/Palpation/Skin Start: 01/02/22 18:07 Freq: Status: Active Protocol: Document 04/04/22 08:13 LRN (Rec: 04/04/22 10:33 LRN [id number]) Palpation Assessment Location Abdomen Palpation Location Diastasis Rectus Palpation Details Above Umbilicus (finger widths ): 4 above 1.5, 3 above 2.5, 2 above 3, 1 above 2.5. Below Umbilicus (finger widths ): 2 below 0, 1 below 2.5. PT-OP-K Range of Motion Start: 01/02/22 18:07 Freq: Status: Active Protocol: Document 01/13/22 14:33 LRN (Rec: 01/13/22 18:18 LRN [id number]) Lumbar Spine Range of Motion Lumbar Spine Active Degrees Flexion 100 Extension 15 Lateral Flexion Left 28 Lateral Flexion Right 23 Hip Goniometric Range of Motion Hip Right Passive Testing Position Supine Flexion w/Knee Flexed 100 Abduction 50 Internal Rotation 45 External Rotation 45 Left Passive Testing Position Supine Abduction 45 Internal Rotation 30 External Rotation 50 Comments Pain in L groin with Passive hip ER. PT-OP-M Strength Start: 01/02/22 18:07 Freq: Status: Active Protocol: Document 01/13/22 14:33 LRN (Rec: 01/13/22 18:18 LRN [id number]) Trunk Strength Trunk Manual Muscle Testing Testing Position Supine Core Stabilization Doming of core with transfers sit<>supine. Hip Strength Hip Manual Muscle Testing Right External Rotation 3+ Fair+ Internal Rotation 3 Fair Comments Pain in groin and lateral hips with MMT of hip IR Left External Rotation 3 Fair Internal Rotation 3 Fair Comments Pain in groin and lateral hips with MMT of hip IR and active ER PT-OP-Q Treatments Start: 01/02/22 18:07 Freq: Status: Active Protocol: Document 04/04/22 08:13 LRN (Rec: 04/04/22 10:29 LRN [id number]) Therapeutic Exercises Supine Exercises LE Roll in/out-TA tight Supine Exercise Name Roll in/outs for breathing and TA tightening. Side bilateral Reps/Minutes 5' TA Supine Exercise Name TA tightening - Head lifts Reps/Minutes 5' Comments Tightening visible in upper abdomen Other Exercises Log roll Other Exercise Name DR protection during Log Roll transfer Reps/Minutes 5' Manual Therapy Treatment Soft Tissue Mobilization ILU massage Body Location ILU massage self massage after review Mobilization Type Other Intensity/Depth Moderate Body Position Supine Comments Knees on bolster. Abdomen Body Location Bowel Massage & pt self BM. Mobilization Type Myofascial Release Intensity/Depth Superficial Body Position Supine Comments Knees on bolster. Cesarian section scar mob Body Location Scar mob Mobilization Type Myofascial Release,Sustained Pressure Intensity/Depth Superficial Body Position Hooklying Comments Restriction with L lateral glide>upward glide improved after STM. Pt performed self STM with v & phy cuing on heel of hand and direction of mob review. Self-Care/Home Management Treatment Education Patient Education Home Exercise Program Other Education Educated, discussed & reviewed Bowel Program. Discussed fluid management of 1/2 body wgt in oz's with additional fluid if drinking caffeine/alcohol. Activities Self-Care/Home Management Activities I/S pt to do bowel/bladder diary. I/S pt in TA tightening and DR protection with transfers ( cross arm support). I/S pt to try Bowel program. Issued & reviewed LE roll in/ out with TA tightnening ex. Issued & reviewed Bowel Program. PT-OP-T Assessment and Plan Start: 01/02/22 18:07 Freq: Status: Active Protocol: Document 04/04/22 08:13 LRN (Rec: 04/04/22 10:29 LRN [id number]) Physical Therapy Assessment Goals Five Impairment Constipation Impairment Type 1 BM's BM once every 3 days. Short Term Goal (STG) BM daily STG Duration 03/01/22 Group Home Goal (LTG) Type 3-4 BM's LTG Duration 04/13/22 Four Impairment Diastasis Rectus Impairment Doming of abdomen and pain in lower abdomen with supine lying and transfers. Short Term Goal (STG) Strengthen TA resulting in no doming with transfers. 03/03/22: Initiated TA tightening. STG Duration 03/14/22 progressed 03/03/22. Ticket Attendant Goal (LTG) Minimal to no doming with exercise and minimize diastasis rectus. LTG Duration 07/12/22 Three Impairment Urinary leakage Impairment Urinary leakage with lifting too heavy and with sexual intercourse and with cough or sneeze and with exercise. Short Term Goal (STG) Pt able to maintain urinary continence with lifting of baby & coughing. 03/03/22: Leaking but not as much. STG Duration 03/14/22 Ticket Attendant Goal (LTG) Eliminate urinary leakage with sexual intercourse, and 2 months or longer s/p . LTG Duration 07/12/22 Two Impairment PF pain Impairment Pain in lower abdomen, vaginal region inside, and sometimes around anus, rated 7/10. Cramping pain in abdomen, Throbbing pain at perineum. Short Term Goal (STG) Pt educated in proper bowel mgmt/care, fluid recommendations, vulvar care and genital hygiene. 04/04/22: Pt educated in Bowel program and discussed fluid recommendation. STG Duration 02/12/22 progressed 04/04/22 Ticket Attendant Goal (LTG) Decrease to no greater than 1/ 10 or eliminate PF pain in perineum and abdomen. LTG Duration 04/13/22 One Impairment Lacks appropriate self care HEP. Short Term Goal (STG) Pt will be educated in proper transfers to protect her DR and to stabilize her core/PF. 03/03/22: Trained for use of TA with transfers. 04/04/22: Educated pt in use of hands to support and I/S in use of towel to support. STG Duration 02/12/22 (04/04/21 MET GOAL) Ticket Attendant Goal (LTG) Independent HEP of self care of PF, jai hip, core strengthening and abdominal self tissue mobilization. 02/13/22: HEP: Bowel massage, I/S in Happy Baby Pose. 04/04/22: HEP: LE Roll in/out for TA tightening. LTG Duration 07/12/22 progressed 04/04/22 Assessment Summary Assessment Pt hasn't been consistent with HEP due to holiday stress and inclement weather stresses; therefore she needed review of Bowel massage ex's, and Bladder/Bowel diary not completed or brought to appt. DR primarily above umbilicus to sternum (2.5-1.5 finger widths respectively) and 1 below umbilicus (2.5 finger width). C-scar decreased mobility on L side. Physical Therapy Plan Frequency and Duration Frequency of Treatment 1x/Week Plan of Care Start Date 01/13/22 Plan of Care End Date 07/12/22 Next Visit Focus/Plan Next Note Type Treatment Note Next Visit Plan Quick review of Bowel massage/ ILU massage if pt unfamiliar with HEP. Review stool/ bladder diary and make recommendations for fluid/food intake. Assess adherence to Bowel program and proper breathing with/without Roll in /outs. Manual: scar mob f/b K-taping, Internal Levator Ani stretching, Jai External PF stretch. If pt tolerates: Assess EMG biofeedback for relaxation. Wand for PF stretching if manual stretching is helpful. If needed, try belting pt for Pub symphasis pain reduction and use. Education: PF hygiene, PF care, education in BM with modifications if needed ( squatty potty), issue HO for proper transfers for DR protection with towel, postural changes associated to pregancy. Ex: hip strengthening, proper breathing, PF strengthening, Core/TA stab, Pelvic stab (start Roll in/ outs if tolerated). Improve painfree hip and trunk mobility and posture.
--- NOTE | 2022-04-11 18:20 | PT-OP ANOTE ---
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 Pt states she has started taking probiotics and is now having more frequent BM's. Pt reminded of next appt 04/18/22.
--- NOTE | 2022-04-18 17:26 | PT.OTN ---
Current Diagnoses Other female genital prolapse (04/18/22) Physical Therapy Treatment Note PT-OP-A Visit Information Start: 01/02/22 18:07 Freq: Status: Active Protocol: Document 04/18/22 13:00 LRN (Rec: 04/18/22 13:49 LRN [id number]) Out-Patient Physical Therapy Visit Information Visit Information Visit Type Treatment Note Visit Start Time 13:00 Visit Stop Time 13:42 Total Visit Minutes 42 Visit Number 5 PT-OP-B Current Condition Start: 01/02/22 18:07 Freq: Status: Active Protocol: Document 01/13/22 14:33 LRN (Rec: 01/13/22 18:18 LRN [id number]) Current Condition History of Current Condition Onset Date 06/19/20 & 05/26/21. Current Complaints Urinary leakage with lifting, cough, sneeze, sexual intercourse. History of Current Condition Pt just had 2 babies back to back, first was almost 10 #. Has weakened PF and leaks urine with lifting too heavy and with sexual intercourse and with cough or sneeze and with exercise. 1st was vaginal delivery (10# baby) with 2nd degree tears requiring stitches. Urinary leakage after childbirth. 2nd was a due to preclampsia with urinary leakage about the same. Pubic pain during pregnancies and was leaking urine with walking . 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 HBP during , but now normal. Currently . Prior Treatments and Tests None Developmental History Developmental History Childbirths 06/19/20 and both boys. Treatment Goals Patient/Caregiver Goals Pt goals: -Eliminate urinary leakage -Minimize her diastasis rectus . -Decrease or eliminate PF pain in pernium and abdomen. -Independent HEP of self care for PF and abdomen. Prior Functional Status Baseline Function- Other Prior to first , no urinary leakage. Prior to second Urinary leakage with lifting, cough, sneeze, sexual intercourse. Post- depression. PF pain with intercourese Current Functional Impairments (Reported) Functional Limitations- Other Urinary leakage with lifting, cough, sneeze, sexual intercourse. Post- depression. PF pain with intercourse in lower abdomen and around vaginal canal. Pain is throbbing, lasts 1-2 hours. Personal Factors Other Personal Factors That May Effect Depression controlled with Therapy/Recovery meds, - 05/26/21. PT-OP-C Subjective Start: 01/02/22 18:07 Freq: Status: Active Protocol: Document 04/18/22 13:00 LRN (Rec: 04/18/22 13:49 LRN [id number]) OP-PT Subjective Patient Comments Patient Comments Going to bathroom more and taking probiotics and stool softner. Trying to increase fiber. PT-OP-I Pelvic Floor Start: 01/02/22 18:07 Freq: Status: Active Protocol: Document 02/13/22 15:25 LRN (Rec: 02/13/22 16:53 LRN [id number]) Pelvic Floor Assessment Urine Pelvic Floor Surgery Yes: Grade 2 tear with 1st Urinary Symptoms Pain Leakage Cause Cough,Exercise,Lifting,Sneeze Bowel Bowel Symptoms Constipation,Pain Bowel Movement Frequency 1x every 3-4 days. Previously was voiding daily. [place] Stool Chart Type 1-7 1 Pelvic Clock Pelvic Clock 12-3 Tightness Pelvic Clock 3-6 Tenderness,Tightness Pelvic Clock 6-9 Tenderness,Tightness Pelvic Clock 9-12 Hypertonic,Tightness Pelvic Clock Other Most tender from Pelvic Clock 3-6 & 6-9. Contraction Ability Manual Muscle Testing Left 2 Manual Muscle Testing Right 3 Manual Muscle Testing Anterior 3 Manual Muscle Testing Posterior 1 Muscle Endurance (Seconds) 1 Number of Quick Contractions In 10 2 Seconds PT-OP-J Posture/Palpation/Skin Start: 01/02/22 18:07 Freq: Status: Active Protocol: Document 04/04/22 08:13 LRN (Rec: 04/04/22 10:33 LRN [id number]) Palpation Assessment Location Abdomen Palpation Location Diastasis Rectus Palpation Details Above Umbilicus (finger widths ): 4 above 1.5, 3 above 2.5, 2 above 3, 1 above 2.5. Below Umbilicus (finger widths ): 2 below 0, 1 below 2.5. PT-OP-K Range of Motion Start: 01/02/22 18:07 Freq: Status: Active Protocol: Document 01/13/22 14:33 LRN (Rec: 01/13/22 18:18 LRN [id number]) Lumbar Spine Range of Motion Lumbar Spine Active Degrees Flexion 100 Extension 15 Lateral Flexion Left 28 Lateral Flexion Right 23 Hip Goniometric Range of Motion Hip Right Passive Testing Position Supine Flexion w/Knee Flexed 100 Abduction 50 Internal Rotation 45 External Rotation 45 Left Passive Testing Position Supine Abduction 45 Internal Rotation 30 External Rotation 50 Comments Pain in L groin with Passive hip ER. PT-OP-M Strength Start: 01/02/22 18:07 Freq: Status: Active Protocol: Document 01/13/22 14:33 LRN (Rec: 01/13/22 18:18 LRN [id number]) Trunk Strength Trunk Manual Muscle Testing Testing Position Supine Core Stabilization Doming of core with transfers sit<>supine. Hip Strength Hip Manual Muscle Testing Right External Rotation 3+ Fair+ Internal Rotation 3 Fair Comments Pain in groin and lateral hips with MMT of hip IR Left External Rotation 3 Fair Internal Rotation 3 Fair Comments Pain in groin and lateral hips with MMT of hip IR and active ER PT-OP-Q Treatments Start: 01/02/22 18:07 Freq: Status: Active Protocol: Document 04/18/22 13:00 LRN (Rec: 04/18/22 13:49 LRN [id number]) Therapeutic Exercises Supine Exercises TA/Roll in-out/PF Supine Exercise Name TA/Roll in-outs/PF contraction Reps/Minutes 5' Comments Pt not able to perform correctly with v cuing. TA/May Supine Exercise Name TA/March/PF holding through 3 breaths>rest 3 breaths Equipment Used Wedge Reps/Minutes 8' Comments Cuing for neutral spine holding with training for rot. Bowel Massage Supine Exercise Name Bowel massage PT driven and pt driven Reps/Minutes 10' Comments Cuing for more superficial depth, slow circles and use of both hands. LE Roll in/out-TA tight Supine Exercise Name Roll in/outs for breathing and TA tightening. Side bilateral Reps/Minutes 3' TA Supine Exercise Name TA tightening Equipment Used Wedge Reps/Minutes 3' Comments Tightening visible in upper abdomen Self-Care/Home Management Treatment Education Other Education Educated pt on squatty potty and recommended pt obtain one, but pt choosing to use her son's stool. Discussed bladder dairy and to complete, issued diary for 7 days. Issued and discussed stool type for pt to track. Educated and briefy discussed proper care for genital hygiene and general vulvar care, with handout issued. Activities Self-Care/Home Management Activities Educated & disucssed with pt, Urinary Delay technique with handout issued. PT-OP-T Assessment and Plan Start: 01/02/22 18:07 Freq: Status: Active Protocol: Document 04/18/22 13:00 LRN (Rec: 04/18/22 13:49 LRN [id number]) Physical Therapy Assessment Goals Five Impairment Constipation Impairment Type 1 BM's BM once every 3 days. Short Term Goal (STG) BM daily STG Duration 03/01/22 Care Home Goal (LTG) Type 3-4 BM's LTG Duration 04/13/22 Four Impairment Diastasis Rectus Impairment Doming of abdomen and pain in lower abdomen with supine lying and transfers. Short Term Goal (STG) Strengthen TA resulting in no doming with transfers. 03/03/22: Initiated TA tightening. STG Duration 03/14/22 progressed 03/03/22. Quality Facilitator Goal (LTG) Minimal to no doming with exercise and minimize diastasis rectus. LTG Duration 07/12/22 Three Impairment Urinary leakage Impairment Urinary leakage with lifting too heavy and with sexual intercourse and with cough or sneeze and with exercise. Short Term Goal (STG) Pt able to maintain urinary continence with lifting of baby & coughing. 03/03/22: Leaking but not as much. STG Duration 03/14/22 Quality Facilitator Goal (LTG) Eliminate urinary leakage with sexual intercourse, and 2 months or longer s/p . LTG Duration 07/12/22 Two Impairment PF pain Impairment Pain in lower abdomen, vaginal region inside, and sometimes around anus, rated 7/10. Cramping pain in abdomen, Throbbing pain at perineum. Short Term Goal (STG) Pt educated in proper bowel mgmt/care, fluid recommendations, vulvar care and genital hygiene. 04/04/22: Pt educated in Bowel program and discussed fluid recommendation. STG Duration 02/12/22 progressed 04/04/22 Quality Facilitator Goal (LTG) Decrease to no greater than 1/ 10 or eliminate PF pain in perineum and abdomen. LTG Duration 04/13/22 One Impairment Lacks appropriate self care HEP. Short Term Goal (STG) Pt will be educated in proper transfers to protect her DR and to stabilize her core/PF. 03/03/22: Trained for use of TA with transfers. 04/04/22: Educated pt in use of hands to support and I/S in use of towel to support. STG Duration 02/12/22 (04/04/21 MET GOAL) Care Home Goal (LTG) Independent HEP of self care of PF, jai hip, core strengthening and abdominal self tissue mobilization. 02/13/22: HEP: Bowel massage, I/S in Happy Baby Pose. 04/04/22: HEP: LE Roll in/out for TA tightening. LTG Duration 07/12/22 progressed 04/04/22 Assessment Summary Assessment Pt was pressing with fingertips during bowel massage; therefore review was necessary to prevent pain during massage. Pt had difficulty tightening her PF with deep breathing; therefore needs further assessment. Pt to practice at home. Pt appears to be working on ways to achieve bowel program. Physical Therapy Plan Frequency and Duration Frequency of Treatment 1x/Week Plan of Care Start Date 01/13/22 Plan of Care End Date 07/12/22 Next Visit Focus/Plan Next Note Type Treatment Note Next Visit Plan Review of Roll in/outs with DB /PF. Review stool/bladder diary and make recommendations for fluid/food intake. Assess adherence to proper breathing with/without Roll in /outs/PF contraction. Manual: scar mob f/b K-taping, Internal Levator Ani stretching, Jai External PF stretch. If pt tolerates: Assess EMG biofeedback for relaxation. Wand for PF stretching if manual stretching is helpful. If needed, try belting pt for Pub symphasis pain reduction and use. Education: PF hygiene, PF care, education in BM with modifications if needed ( squatty potty), issue HO for proper transfers for DR protection with towel, postural changes associated to pregancy. Ex: hip strengthening, proper breathing, PF strengthening, Core/TA stab, Pelvic stab (start Roll in/ outs if tolerated). Improve painfree hip and trunk mobility and posture.
--- NOTE | 2022-04-27 17:21 | PT.OTN ---
Current Diagnoses Other female genital prolapse (04/27/22) Physical Therapy Treatment Note PT-OP-A Visit Information Start: 01/02/22 18:07 Freq: Status: Active Protocol: Document 04/27/22 13:49 LRN (Rec: 04/27/22 14:33 LRN [id number]) Out-Patient Physical Therapy Visit Information Visit Information Visit Type Treatment Note Visit Start Time 13:49 Visit Stop Time 14:30 Total Visit Minutes 41 Visit Number 6 Evaluation Information Evaluation Date 01/13/22 Precautions Precautions Depression controlled with meds, 05/26/21. Pubic symphasis instability, DR concerns & pelvic pain s/p pregnancies, currently . Baby and toddler less than a year apart in age. PT-OP-B Current Condition Start: 01/02/22 18:07 Freq: Status: Active Protocol: Document 01/13/22 14:33 LRN (Rec: 01/13/22 18:18 LRN [id number]) Current Condition History of Current Condition Onset Date 06/19/20 & 05/26/21. Current Complaints Urinary leakage with lifting, cough, sneeze, sexual intercourse. History of Current Condition Pt just had 2 babies back to back, first was almost 10 #. Has weakened PF and leaks urine with lifting too heavy and with sexual intercourse and with cough or sneeze and with exercise. 1st was vaginal delivery (10# baby) with 2nd degree tears requiring stitches. Urinary leakage after childbirth. 2nd was a due to preclampsia with urinary leakage about the same. Pubic pain during pregnancies and was leaking urine with walking . 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 HBP during , but now normal. Currently . Prior Treatments and Tests None Developmental History Developmental History Childbirths 06/19/20 and both boys. Treatment Goals Patient/Caregiver Goals Pt goals: -Eliminate urinary leakage -Minimize her diastasis rectus . -Decrease or eliminate PF pain in pernium and abdomen. -Independent HEP of self care for PF and abdomen. Prior Functional Status Baseline Function- Other Prior to first , no urinary leakage. Prior to second Urinary leakage with lifting, cough, sneeze, sexual intercourse. Post- depression. PF pain with intercourese Current Functional Impairments (Reported) Functional Limitations- Other Urinary leakage with lifting, cough, sneeze, sexual intercourse. Post- depression. PF pain with intercourse in lower abdomen and around vaginal canal. Pain is throbbing, lasts 1-2 hours. Personal Factors Other Personal Factors That May Effect Depression controlled with Therapy/Recovery meds, - 05/26/21. PT-OP-C Subjective Start: 01/02/22 18:07 Freq: Status: Active Protocol: Document 04/27/22 13:49 LRN (Rec: 04/27/22 14:33 LRN [id number]) OP-PT Subjective Patient Comments Patient Comments Has been taking fiber and stool softner and her stool is now a type 4. She has been practicing her breathing and exercises. States 4 mins after drinking water she has urge to urinate, but trickles for 2 secs. She states stopped drinking water 8p and wakes only 1x/at night. PT-OP-I Pelvic Floor Start: 01/02/22 18:07 Freq: Status: Active Protocol: Document 02/13/22 15:25 LRN (Rec: 02/13/22 16:53 LRN [id number]) Pelvic Floor Assessment Urine Pelvic Floor Surgery Yes: Grade 2 tear with 1st Urinary Symptoms Pain Leakage Cause Cough,Exercise,Lifting,Sneeze Bowel Bowel Symptoms Constipation,Pain Bowel Movement Frequency 1x every 3-4 days. Previously was voiding daily. [place] Stool Chart Type 1-7 1 Pelvic Clock Pelvic Clock 12-3 Tightness Pelvic Clock 3-6 Tenderness,Tightness Pelvic Clock 6-9 Tenderness,Tightness Pelvic Clock 9-12 Hypertonic,Tightness Pelvic Clock Other Most tender from Pelvic Clock 3-6 & 6-9. Contraction Ability Manual Muscle Testing Left 2 Manual Muscle Testing Right 3 Manual Muscle Testing Anterior 3 Manual Muscle Testing Posterior 1 Muscle Endurance (Seconds) 1 Number of Quick Contractions In 10 2 Seconds PT-OP-J Posture/Palpation/Skin Start: 01/02/22 18:07 Freq: Status: Active Protocol: Document 04/04/22 08:13 LRN (Rec: 04/04/22 10:33 LRN [id number]) Palpation Assessment Location Abdomen Palpation Location Diastasis Rectus Palpation Details Above Umbilicus (finger widths ): 4 above 1.5, 3 above 2.5, 2 above 3, 1 above 2.5. Below Umbilicus (finger widths ): 2 below 0, 1 below 2.5. PT-OP-K Range of Motion Start: 01/02/22 18:07 Freq: Status: Active Protocol: Document 01/13/22 14:33 LRN (Rec: 01/13/22 18:18 LRN [id number]) Lumbar Spine Range of Motion Lumbar Spine Active Degrees Flexion 100 Extension 15 Lateral Flexion Left 28 Lateral Flexion Right 23 Hip Goniometric Range of Motion Hip Right Passive Testing Position Supine Flexion w/Knee Flexed 100 Abduction 50 Internal Rotation 45 External Rotation 45 Left Passive Testing Position Supine Abduction 45 Internal Rotation 30 External Rotation 50 Comments Pain in L groin with Passive hip ER. PT-OP-M Strength Start: 01/02/22 18:07 Freq: Status: Active Protocol: Document 01/13/22 14:33 LRN (Rec: 01/13/22 18:18 LRN [id number]) Trunk Strength Trunk Manual Muscle Testing Testing Position Supine Core Stabilization Doming of core with transfers sit<>supine. Hip Strength Hip Manual Muscle Testing Right External Rotation 3+ Fair+ Internal Rotation 3 Fair Comments Pain in groin and lateral hips with MMT of hip IR Left External Rotation 3 Fair Internal Rotation 3 Fair Comments Pain in groin and lateral hips with MMT of hip IR and active ER PT-OP-Q Treatments Start: 01/02/22 18:07 Freq: Status: Active Protocol: Document 04/27/22 13:49 LRN (Rec: 04/27/22 14:33 LRN [id number]) Therapeutic Exercises Supine Exercises PF/TA/Ball squeeze Supine Exercise Name Sequence training for Cough & Sneeze: PF/TA/Ball squeeze - cough and sneeze Side bilateral Equipment Used Wedge Reps/Minutes 5x each, off and on wedge Comments Pt not able to sequence action without v. cuing. DR protection training Supine Exercise Name DR protection training with towel for sit<>supine Equipment Used towel Reps/Minutes 4' TA/Roll in-out/PF Supine Exercise Name TA/Roll in-outs/PF contraction Equipment Used Wedge Reps/Minutes 8' Comments Pt not able to perform correctly with v cuing. TA Supine Exercise Name TA tightening Equipment Used Wedge Reps/Minutes 3' Comments Tightening visible in upper abdomen Sidelying Exercises TA Sidelying Exercise Name TA Tightening L sidelie> R sidelie due to weakness L side Side bilateral Reps/Minutes 10SH x 5 each Comments Cuing to not use upper T/S to lift TA inward, but to tighten TA Other Exercises Log roll Other Exercise Name DR flood during Log Roll transfer Reps/Minutes 4' x 3 Manual Therapy Treatment Taping scar Body Location scar Treatment Focus Improve tissue mobility Type of Tape Kinesio Tape Skin Inspection Good Comments L side of scar had more ridges than the L side. PT-OP-T Assessment and Plan Start: 01/02/22 18:07 Freq: Status: Active Protocol: Document 04/27/22 13:49 LRN (Rec: 04/27/22 14:33 LRN [id number]) Physical Therapy Assessment Goals Five Impairment Constipation Impairment Type 1 BM's BM once every 3 days. Short Term Goal (STG) BM daily STG Duration 03/01/22 Senior Living Goal (LTG) Type 3-4 BM's 04/27/22: Type 4 BM's with increased fiber and stool softner. LTG Duration 04/13/22 met goal x 1 day Four Impairment Diastasis Rectus Impairment Doming of abdomen and pain in lower abdomen with supine lying and transfers. Short Term Goal (STG) Strengthen TA resulting in no doming with transfers. 03/03/22: Initiated TA tightening. STG Duration 03/14/22 progressed 03/03/22. Cabin Crew Goal (LTG) Minimal to no doming with exercise and minimize diastasis rectus. LTG Duration 07/12/22 Three Impairment Urinary leakage Impairment Urinary leakage with lifting too heavy and with sexual intercourse and with cough or sneeze and with exercise. Short Term Goal (STG) Pt able to maintain urinary continence with lifting of baby & coughing. 03/03/22: Leaking but not as much. 04/27/22: Leaking with coughing, no leak last week. STG Duration 03/14/22 progressing 04/27/22 Senior Living Goal (LTG) Eliminate urinary leakage with sexual intercourse, and 2 months or longer s/p . LTG Duration 07/12/22 Two Impairment PF pain Impairment Pain in lower abdomen, vaginal region inside, and sometimes around anus, rated 7/10. Cramping pain in abdomen, Throbbing pain at perineum. Short Term Goal (STG) Pt educated in proper bowel mgmt/care, fluid recommendations, vulvar care and genital hygiene. 04/04/22: Pt educated in Bowel program and discussed fluid recommendation. STG Duration 02/12/22 progressed 04/04/22 Senior Living Goal (LTG) Decrease to no greater than 1/ 10 or eliminate PF pain in perineum and abdomen. LTG Duration 04/13/22 One Impairment Lacks appropriate self care HEP. Short Term Goal (STG) Pt will be educated in proper transfers to protect her DR and to stabilize her core/PF. 03/03/22: Trained for use of TA with transfers. 04/04/22: Educated pt in use of hands to support and I/S in use of towel to support. STG Duration 02/12/22 (04/04/21 MET GOAL) Senior Living Goal (LTG) Independent HEP of self care of PF, jai hip, core strengthening and abdominal self tissue mobilization. 02/13/22: HEP: Bowel massage, I/S in Happy Baby Pose. 04/04/22: HEP: LE Roll in/out for TA tightening. LTG Duration 07/12/22 progressed 04/04/22 Assessment Summary Assessment Stool type improved to type 4 with stool softner and fiber intake. Pt taking 3 sec breaths with ex; therefore she needed training/cuing with Roll in/outs with DB/PF for slow breathing of 5-6 secs. Physical Therapy Plan Frequency and Duration Frequency of Treatment 1x/Week Plan of Care Start Date 01/13/22 Plan of Care End Date 07/12/22 Next Visit Focus/Plan Next Note Type Treatment Note Next Visit Plan Review stool/bladder diary (? BM daily) and make recommendations for fluid/food intake. Assess PF pain & educate pt in vulvar care and genital (goal 2), Monitor doming of abdomen with transfers and exercise. Assess EMG biofeedback for relaxation. Manual: scar mob f/b K-taping, Internal Levator Ani stretching, Jai External PF stretch, and wand for PF stretching if manual stretching is helpful. Support: If needed, try belting pt for Pub symphasis pain reduction and use. Education: PF hygiene, PF care, education in squatty potty for BM assist; issue HO for postural changes associated to pregancy, and HO for use of abdominal support if pt needs reminders. Ex: hip strengthening, anterior PF strengthening, Core/TA stab, Pelvic stab. Improve painfree hip and trunk mobility and posture.
--- NOTE | 2022-05-18 15:44 | PT-OP ANOTE ---
Pt called to notify of her that she has 1 more scheduled visit on 05/26/22. Encouraged pt to call when she knows she would be able to attend and schedule more visits 1x/week until mid July. Pt agreeable.
--- NOTE | 2022-05-26 13:57 | PT-OP ANOTE ---
Cancel short notice due to car troubles.
--- NOTE | 2022-07-07 16:47 | PT.OTN ---
Current Diagnoses Other female genital prolapse (07/07/22) Physical Therapy Treatment Note PT-OP-A Visit Information Start: 01/02/22 18:07 Freq: Status: Active Protocol: Document 07/07/22 15:22 LRN (Rec: 07/07/22 16:46 LRN [id number]) Out-Patient Physical Therapy Visit Information Visit Information Visit Type Progress Note Visit Start Time 15:22 Visit Stop Time 16:04 Total Visit Minutes 42 Visit Number 7 Evaluation Information Evaluation Date 01/13/22 Precautions Precautions Depression controlled with meds, 05/26/21. Pubic symphasis instability, concerns & pelvic pain s/p pregnancies, currently . Baby and toddler less than a year apart in age. PT-OP-B Current Condition Start: 01/02/22 18:07 Freq: Status: Active Protocol: Document 01/13/22 14:33 LRN (Rec: 01/13/22 18:18 LRN [id number]) Current Condition History of Current Condition Onset Date 06/19/20 & 05/26/21. Current Complaints Urinary leakage with lifting, cough, sneeze, sexual intercourse. History of Current Condition Pt just had 2 babies back to back, first was almost 10 #. Has weakened PF and leaks urine with lifting too heavy and with sexual intercourse and with cough or sneeze and with exercise. 1st was vaginal delivery (10# baby) with 2nd degree tears requiring stitches. Urinary leakage after childbirth. 2nd was a due to preclampsia with urinary leakage about the same. Pubic pain during pregnancies and was leaking urine with walking . 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 HBP during , but now normal. Currently . Prior Treatments and Tests None Developmental History Developmental History Childbirths 06/19/20 and both boys. Treatment Goals Patient/Caregiver Goals Pt goals: -Eliminate urinary leakage -Minimize her diastasis rectus . -Decrease or eliminate PF pain in pernium and abdomen. -Independent HEP of self care for PF and abdomen. Prior Functional Status Baseline Function- Other Prior to first , no urinary leakage. Prior to second Urinary leakage with lifting, cough, sneeze, sexual intercourse. Post- depression. PF pain with intercourese Current Functional Impairments (Reported) Functional Limitations- Other Urinary leakage with lifting, cough, sneeze, sexual intercourse. Post- depression. PF pain with intercourse in lower abdomen and around vaginal canal. Pain is throbbing, lasts 1-2 hours. Personal Factors Other Personal Factors That May Effect Depression controlled with Therapy/Recovery meds, - 05/26/21. PT-OP-C Subjective Start: 01/02/22 18:07 Freq: Status: Active Protocol: Document 07/07/22 15:22 LRN (Rec: 07/07/22 16:46 LRN [id number]) OP-PT Subjective Patient Comments Patient Comments Lower back pain isn't as bad. Currently LBP is 0/10. Protecting DR occasionally because of taking care of son. Went to [employer] with son 1 month ago and did a lot of leaking and felt things are falling out. Weaning off of . No pubic bone pain. PT-OP-I Pelvic Floor Start: 01/02/22 18:07 Freq: Status: Active Protocol: Document 02/13/22 15:25 LRN (Rec: 02/13/22 16:53 LRN [id number]) Pelvic Floor Assessment Urine Pelvic Floor Surgery Yes: Grade 2 tear with 1st Urinary Symptoms Pain Leakage Cause Cough,Exercise,Lifting,Sneeze Bowel Bowel Symptoms Constipation,Pain Bowel Movement Frequency 1x every 3-4 days. Previously was voiding daily. [place] Stool Chart Type 1-7 1 Pelvic Clock Pelvic Clock 12-3 Tightness Pelvic Clock 3-6 Tenderness,Tightness Pelvic Clock 6-9 Tenderness,Tightness Pelvic Clock 9-12 Hypertonic,Tightness Pelvic Clock Other Most tender from Pelvic Clock 3-6 & 6-9. Contraction Ability Manual Muscle Testing Left 2 Manual Muscle Testing Right 3 Manual Muscle Testing Anterior 3 Manual Muscle Testing Posterior 1 Muscle Endurance (Seconds) 1 Number of Quick Contractions In 10 2 Seconds PT-OP-J Posture/Palpation/Skin Start: 01/02/22 18:07 Freq: Status: Active Protocol: Document 04/04/22 08:13 LRN (Rec: 04/04/22 10:33 LRN [id number]) Palpation Assessment Location Abdomen Palpation Location Diastasis Rectus Palpation Details Above Umbilicus (finger widths ): 4 above 1.5, 3 above 2.5, 2 above 3, 1 above 2.5. Below Umbilicus (finger widths ): 2 below 0, 1 below 2.5. PT-OP-K Range of Motion Start: 01/02/22 18:07 Freq: Status: Active Protocol: Document 01/13/22 14:33 LRN (Rec: 01/13/22 18:18 LRN [id number]) Lumbar Spine Range of Motion Lumbar Spine Active Degrees Flexion 100 Extension 15 Lateral Flexion Left 28 Lateral Flexion Right 23 Hip Goniometric Range of Motion Hip Right Passive Testing Position Supine Flexion w/Knee Flexed 100 Abduction 50 Internal Rotation 45 External Rotation 45 Left Passive Testing Position Supine Abduction 45 Internal Rotation 30 External Rotation 50 Comments Pain in L groin with Passive hip ER. PT-OP-M Strength Start: 01/02/22 18:07 Freq: Status: Active Protocol: Document 01/13/22 14:33 LRN (Rec: 01/13/22 18:18 LRN [id number]) Trunk Strength Trunk Manual Muscle Testing Testing Position Supine Core Stabilization Doming of core with transfers sit<>supine. Hip Strength Hip Manual Muscle Testing Right External Rotation 3+ Fair+ Internal Rotation 3 Fair Comments Pain in groin and lateral hips with MMT of hip IR Left External Rotation 3 Fair Internal Rotation 3 Fair Comments Pain in groin and lateral hips with MMT of hip IR and active ER PT-OP-Q Treatments Start: 01/02/22 18:07 Freq: Status: Active Protocol: Document 07/07/22 15:22 LRN (Rec: 07/07/22 16:46 LRN [id number]) Therapeutic Exercises Supine Exercises Hands/knees push Supine Exercise Name Hands/knees push Side bilateral Reps/Minutes 10 SH x 10 PF/TA/Ball squeeze Supine Exercise Name Sequence training for Cough: PF/TA/Ball - cough and sneeze Side bilateral Equipment Used Wedge Reps/Minutes 10x each, on wedge Comments Pt able to sequence cough with initial cuing TA/Roll in-out/PF Supine Exercise Name TA/Roll in-outs/PF contraction Resistance Lev 1 Tband Equipment Used Wedge Reps/Minutes 8' Comments Pt not able to perform correctly with v cuing. Sidelying Exercises TA Sidelying Exercise Name TA Tightening L sidelie> R sidelie due to weakness L side Side bilateral Reps/Minutes 10SH x 6 each Comments Cuing to not use upper T/S to lift TA inward, but to tighten TA Manual Therapy Treatment Soft Tissue Mobilization Cesarian section scar mob Body Location Scar mob Mobilization Type Myofascial Release,Sustained Pressure Intensity/Depth Superficial Body Position Hooklying Comments Restriction with upward glide and L rot/CW except at R distal end R/CCW restricted, improved after STM. Self-Care/Home Management Treatment Activities Self-Care/Home Management Activities Issued & reviewed HEP: Lower TA tightening with hands/knees push. Pt to work on PF/TA tight with cough/sneeze/laugh motions without doming of abdomen. PT-OP-T Assessment and Plan Start: 01/02/22 18:07 Freq: Status: Active Protocol: Document 07/07/22 15:22 LRN (Rec: 07/07/22 16:46 LRN [id number]) Physical Therapy Assessment Rehab Potential Rehabilitation Potential Good Evaluation Complexity Number of Personal Factors/Comorbidities 1-2 Number of Body Systems Impaired 4 or More Clinical Presentation at Evaluation Evolving Impairments Impairments Activity Tolerance,Gait,Pain, Posture,ROM,Soft Tissue Mobility,Strength,Transfers Goals Five Impairment Constipation Impairment Type 1 BM's BM once every 3 days. Short Term Goal (STG) BM daily 07/07/22: Has been having daily BM's. STG Duration 03/01/22 (07/07/22: MET GOAL) Long-Term Goal (LTG) Type 3-4 BM's 04/27/22: Type 4 BM's with increased fiber and stool softner. 07/07/22: BM's are type 4. LTG Duration 04/13/22 (07/07/22: MET GOAL) Four Impairment Diastasis Rectus Impairment Doming of abdomen and pain in lower abdomen with supine lying and transfers. Short Term Goal (STG) Strengthen TA resulting in no doming with transfers. 03/03/22: Initiated TA tightening. 07/07/22: TA tightening with light cough, sneeze, laugh type movement. Doming present with transfers and cough, sneeze, laugh movements. STG Duration 08/18/22 progressed 07/07/22. Long-Term Goal (LTG) Minimal to no doming with exercise and minimize diastasis rectus. LTG Duration 10/06/22 Three Impairment Urinary leakage Impairment Urinary leakage with lifting too heavy and with sexual intercourse and with cough or sneeze and with exercise. Short Term Goal (STG) Pt able to maintain urinary continence with lifting of baby & coughing. 03/03/22: Leaking but not as much. 07/07/22: Not leaking with lifting baby. 04/27/22: Leaking with coughing, no leak last week. 07/07/22: Not leaking with sneeze or lifting baby. Hasn' t coughed. STG Duration progressing 07/07/22 Fish Cutter Goal (LTG) Eliminate urinary leakage with sexual intercourse, and 2 months or longer s/p . 07/07/22: Not having intercourse yet. LTG Duration 10/06/22 Two Impairment PF pain Impairment Pain in lower abdomen, vaginal region inside, and sometimes around anus, rated 7/10. Cramping pain in abdomen, Throbbing pain at perineum. Short Term Goal (STG) Pt educated in proper bowel mgmt/care, fluid recommendations, vulvar care and genital hygiene. 04/04/22: Pt educated in Bowel program and discussed fluid recommendation. STG Duration 08/18/22 progressed 04/04/22 Long-Term Goal (LTG) Decrease to no greater than 1/ 10 or eliminate PF pain in perineum and abdomen. 07/07/22: No lower abdominal pain in a long time. No dairy and having daily BMs. LTG Duration 04/13/22 (07/07/22: MET GOAL) One Impairment Lacks appropriate self care HEP. Short Term Goal (STG) Pt will be educated in proper transfers to protect her DR and to stabilize her core/PF. 03/03/22: Trained for use of TA with transfers. 04/04/22: Educated pt in use of hands to support and I/S in use of towel to support. STG Duration 02/12/22 (04/04/21 MET GOAL) Long-Term Goal (LTG) Independent HEP of self care of PF, jai hip, core strengthening and abdominal self tissue mobilization. 02/13/22: HEP: Bowel massage, I/S in Happy Baby Pose. 04/04/22: HEP: LE Roll in/out for TA tightening. 07/07/22: HEP: hands/knees push for lower TA strengthening. LTG Duration 10/06/22 progressed 07/07/22 Assessment Summary Assessment Pt is s/p with Stress urinary incontinence, core weakness and instability with doming of her abdomen with transfers, and Diastasis Rectus. Pt is no longer having pubic pain, therefore not needing support at pubic symphysis. The pt has been able to attend 5 visits in 3 months due to various reasons; therefore it is expected that the pt will need an extended amount of time to complete her rehabilitation program. She has progressed with improved scar mobility, improved BM frequency, and decrease in her pubic pain and urinary leakage. She still demonstrates poor abdominal/ core strength (doming with functional transfer movements) , stress urinary leakage due to anterior PF weakness and mid to posterior PF tightness, and need for education on proper posture and PF care. The pt will benefit from continued physical therapy for her pelvic floor rehabilitation program as she continues to make progress towards decreasing urinary leakage. Physical Therapy Plan Frequency and Duration Frequency of Treatment 1x/Week Plan of Care Start Date 07/07/22 Plan of Care End Date 10/06/22 Therapeutic Interventions Therapeutic Interventions Home Exercise Program,Joint Mobilizations,Manual Therapy, Neuromuscular Re-education, Patient/Caregiver Education, Self-Care/Home Management,Soft Tissue Mobilization,Taping, Therapeutic Activities, Therapeutic Exercises Modalities Biofeedback,Cold Pack/Ice Massage,Electric Stimulation, Hot Packs Next Visit Focus/Plan Next Note Type Treatment Note Next Visit Plan Review stool/bladder diary (? BM daily) and make recommendations for fluid/food intake. Educate pt in vulvar care and genital care (goal 2), Education: review & discuss HO for postural changes associated to , and HO for use of abdominal support if pt needs reminders. Assess PF pain, Assess EMG biofeedback for relaxation. Stretch to PF, issue wand for self stretching if tolerated, check for anterior PF strengthening. Monitor doming of abdomen with transfers and exercise. Manual: scar mob f/b K-taping, Internal Levator Ani stretching, Jai External PF stretch, and wand for PF stretching if manual stretching is helpful. Support: If needed, try belting pt for Pub symphasis pain reduction and use. Ex: hip strengthening, anterior PF strengthening, Core/TA stab, Pelvic stab. Improve painfree hip and trunk mobility and posture.
--- NOTE | 2022-07-07 16:47 | PT.OPPOC ---
Physical, Occupational & Speech Therapy At [facility] Current Diagnoses Other female genital prolapse (07/07/22) Visit Care Team Role Provider Type Sierra Hollis PA-C Primary Care Provider Non-Staff Specialty: Medical Address: [address] [place] [address] [place], [facility] [address], [place], [address] Email: Bonnie Lee MD Family Provider Non-Staff Specialty: [employer] Address: [address] [place] [address], [id number] Email: Abran Zimmerman MD Attending Provider Non-Staff Referring Provider Specialty: [employer] Address: [address] [place] [address], [address], [place], [address] Email: Plan Of Care PT-OP-T Assessment and Plan Start: 01/02/22 18:07 Freq: Status: Active Protocol: Document 07/07/22 15:22 LRN (Rec: 07/07/22 16:46 LRN [id number]) Physical Therapy Assessment Rehab Potential Rehabilitation Potential Good Evaluation Complexity Number of Personal Factors/Comorbidities 1-2 Number of Body Systems Impaired 4 or More Clinical Presentation at Evaluation Evolving Impairments Impairments Activity Tolerance,Gait,Pain, Posture,ROM,Soft Tissue Mobility,Strength,Transfers Goals Five Impairment Constipation Impairment Type 1 BM's BM once every 3 days. Short Term Goal (STG) BM daily 07/07/22: Has been having daily BM's. STG Duration 03/01/22 (07/07/22: MET GOAL) Snf Goal (LTG) Type 3-4 BM's 04/27/22: Type 4 BM's with increased fiber and stool softner. 07/07/22: BM's are type 4. LTG Duration 04/13/22 (07/07/22: MET GOAL) Four Impairment Diastasis Rectus Impairment Doming of abdomen and pain in lower abdomen with supine lying and transfers. Short Term Goal (STG) Strengthen TA resulting in no doming with transfers. 03/03/22: Initiated TA tightening. 07/07/22: TA tightening with light cough, sneeze, laugh type movement. Doming present with transfers and cough, sneeze, laugh movements. STG Duration 08/18/22 progressed 07/07/22. Biomedical Engineering Technician Goal (LTG) Minimal to no doming with exercise and minimize diastasis rectus. LTG Duration 10/06/22 Three Impairment Urinary leakage Impairment Urinary leakage with lifting too heavy and with sexual intercourse and with cough or sneeze and with exercise. Short Term Goal (STG) Pt able to maintain urinary continence with lifting of baby & coughing. 03/03/22: Leaking but not as much. 07/07/22: Not leaking with lifting baby. 04/27/22: Leaking with coughing, no leak last week. 07/07/22: Not leaking with sneeze or lifting baby. Hasn' t coughed. STG Duration progressing 07/07/22 Biomedical Engineering Technician Goal (LTG) Eliminate urinary leakage with sexual intercourse, and 2 months or longer s/p . 07/07/22: Not having intercourse yet. LTG Duration 10/06/22 Two Impairment PF pain Impairment Pain in lower abdomen, vaginal region inside, and sometimes around anus, rated 7/10. Cramping pain in abdomen, Throbbing pain at perineum. Short Term Goal (STG) Pt educated in proper bowel mgmt/care, fluid recommendations, vulvar care and genital hygiene. 04/04/22: Pt educated in Bowel program and discussed fluid recommendation. STG Duration 08/18/22 progressed 04/04/22 Biomedical Engineering Technician Goal (LTG) Decrease to no greater than 1/ 10 or eliminate PF pain in perineum and abdomen. 07/07/22: No lower abdominal pain in a long time. No dairy and having daily BMs. LTG Duration 04/13/22 (07/07/22: MET GOAL) One Impairment Lacks appropriate self care HEP. Short Term Goal (STG) Pt will be educated in proper transfers to protect her DR and to stabilize her core/PF. 03/03/22: Trained for use of TA with transfers. 04/04/22: Educated pt in use of hands to support and I/S in use of towel to support. STG Duration 02/12/22 (04/04/21 MET GOAL) Biomedical Engineering Technician Goal (LTG) Independent HEP of self care of PF, kayley hip, core strengthening and abdominal self tissue mobilization. 02/13/22: HEP: Bowel massage, I/S in Happy Baby Pose. 04/04/22: HEP: LE Roll in/out for TA tightening. 07/07/22: HEP: hands/knees push for lower TA strengthening. LTG Duration 10/06/22 progressed 07/07/22 Assessment Summary Assessment Pt is s/p with Stress urinary incontinence, core weakness and instability with doming of her abdomen with transfers, and Diastasis Rectus. Pt is no longer having pubic pain, therefore not needing support at pubic symphysis. The pt has been able to attend 5 visits in 3 months due to various reasons; therefore it is expected that the pt will need an extended amount of time to complete her rehabilitation program. She has progressed with improved scar mobility, improved BM frequency, and decrease in her pubic pain and urinary leakage. She still demonstrates poor abdominal/ core strength (doming with functional transfer movements) , stress urinary leakage due to anterior PF weakness and mid to posterior PF tightness, and need for education on proper posture and PF care. The pt will benefit from continued physical therapy for her pelvic floor rehabilitation program as she continues to make progress towards decreasing urinary leakage. Physical Therapy Plan Frequency and Duration Frequency of Treatment 1x/Week Plan of Care Start Date 07/07/22 Plan of Care End Date 10/06/22 Therapeutic Interventions Therapeutic Interventions Home Exercise Program,Joint Mobilizations,Manual Therapy, Neuromuscular Re-education, Patient/Caregiver Education, Self-Care/Home Management,Soft Tissue Mobilization,Taping, Therapeutic Activities, Therapeutic Exercises Modalities Biofeedback,Cold Pack/Ice Massage,Electric Stimulation, Hot Packs Next Visit Focus/Plan Next Note Type Treatment Note Next Visit Plan Review stool/bladder diary (? BM daily) and make recommendations for fluid/food intake. Educate pt in vulvar care and genital care (goal 2), Education: review & discuss HO for postural changes associated to , and HO for use of abdominal support if pt needs reminders. Assess PF pain, Assess EMG biofeedback for relaxation. Stretch to PF, issue wand for self stretching if tolerated, check for anterior PF strengthening. Monitor doming of abdomen with transfers and exercise. Manual: scar mob f/b K-taping, Internal Levator Ani stretching, Kayley External PF stretch, and wand for PF stretching if manual stretching is helpful. Support: If needed, try belting pt for Pub symphasis pain reduction and use. Ex: hip strengthening, anterior PF strengthening, Core/TA stab, Pelvic stab. Improve painfree hip and trunk mobility and posture. Plan of Care Dates Plan of Care Start Date 07/07/22 Plan of Care End Date 10/06/22 Electronically Signed by: Iva Reyes, PT 07/07/22 1850 If you are in agreement with this Plan of Care, please return a signed and dated copy. I have reviewed this Plan of Care and certify that the skilled therapy services above are required to meet the patient?s needs. Physician Signature Date Printed Name and Credentials Clinical Instructor Signature Printed Name and Credentials
--- NOTE | 2022-08-04 16:33 | PT.OTN ---
Current Diagnoses Other female genital prolapse (08/04/22) Physical Therapy Treatment Note PT-OP-A Visit Information Start: 01/02/22 18:07 Freq: Status: Active Protocol: Document 08/04/22 13:20 LRN (Rec: 08/04/22 14:04 LRN [id number]) Out-Patient Physical Therapy Visit Information Visit Information Visit Start Time 13:20 Visit Stop Time 13:58 Total Visit Minutes 38 Visit Number 8 Evaluation Information Evaluation Date 01/13/22 Precautions Precautions Depression controlled with meds, 05/26/21. Pubic symphasis instability, DR concerns & pelvic pain s/p pregnancies, currently . Baby and toddler less than a year apart in age. PT-OP-B Current Condition Start: 01/02/22 18:07 Freq: Status: Active Protocol: Document 01/13/22 14:33 LRN (Rec: 01/13/22 18:18 LRN [id number]) Current Condition History of Current Condition Onset Date 06/19/20 & 05/26/21. Current Complaints Urinary leakage with lifting, cough, sneeze, sexual intercourse. History of Current Condition Pt just had 2 babies back to back, first was almost 10 #. Has weakened PF and leaks urine with lifting too heavy and with sexual intercourse and with cough or sneeze and with exercise. 1st was vaginal delivery (10# baby) with 2nd degree tears requiring stitches. Urinary leakage after childbirth. 2nd was a due to preclampsia with urinary leakage about the same. Pubic pain during pregnancies and was leaking urine with walking . 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 HBP during , but now normal. Currently . Prior Treatments and Tests None Developmental History Developmental History Childbirths 06/19/20 and both boys. Treatment Goals Patient/Caregiver Goals Pt goals: -Eliminate urinary leakage -Minimize her diastasis rectus . -Decrease or eliminate PF pain in pernium and abdomen. -Independent HEP of self care for PF and abdomen. Prior Functional Status Baseline Function- Other Prior to first , no urinary leakage. Prior to second Urinary leakage with lifting, cough, sneeze, sexual intercourse. Post- depression. PF pain with intercourese Current Functional Impairments (Reported) Functional Limitations- Other Urinary leakage with lifting, cough, sneeze, sexual intercourse. Post- depression. PF pain with intercourse in lower abdomen and around vaginal canal. Pain is throbbing, lasts 1-2 hours. Personal Factors Other Personal Factors That May Effect Depression controlled with Therapy/Recovery meds, - 05/26/21. PT-OP-C Subjective Start: 01/02/22 18:07 Freq: Status: Active Protocol: Document 08/04/22 13:20 LRN (Rec: 08/04/22 14:04 LRN [id number]) OP-PT Subjective Patient Comments Patient Comments son for comfort, 2x/day. Not having much leakage anymore. Can pick son up w/o leakage. If holds urine through the day and has urge, if picks up son she has a small amount of leakage, but can get to the bathroom. Having upset stomach this week . Has not had constipation and is drinkking a lot of water and cutting out dairy. After last session had throbbing pain with use of tampon. PT-OP-I Pelvic Floor Start: 01/02/22 18:07 Freq: Status: Active Protocol: Document 02/13/22 15:25 LRN (Rec: 02/13/22 16:53 LRN [id number]) Pelvic Floor Assessment Urine Pelvic Floor Surgery Yes: Grade 2 tear with 1st Urinary Symptoms Pain Leakage Cause Cough,Exercise,Lifting,Sneeze Bowel Bowel Symptoms Constipation,Pain Bowel Movement Frequency 1x every 3-4 days. Previously was voiding daily. Will Stool Chart Type 1-7 1 Pelvic Clock Pelvic Clock 12-3 Tightness Pelvic Clock 3-6 Tenderness,Tightness Pelvic Clock 6-9 Tenderness,Tightness Pelvic Clock 9-12 Hypertonic,Tightness Pelvic Clock Other Most tender from Pelvic Clock 3-6 & 6-9. Contraction Ability Manual Muscle Testing Left 2 Manual Muscle Testing Right 3 Manual Muscle Testing Anterior 3 Manual Muscle Testing Posterior 1 Muscle Endurance (Seconds) 1 Number of Quick Contractions In 10 2 Seconds PT-OP-J Posture/Palpation/Skin Start: 01/02/22 18:07 Freq: Status: Active Protocol: Document 08/04/22 13:20 LRN (Rec: 08/04/22 16:15 LRN [id number]) Palpation Assessment Location Abdomen Palpation Location Diastasis Rectus Palpation Details Above Umbilicus (finger widths ): 4 above-1.0, 3 above-deep 2 .0, 2 above-deep 2.5, 1 above-deep 3. Below Umbilicus (finger widths ): 2 below-shallow 2.5, 1 below-deep 2.5. PT-OP-K Range of Motion Start: 01/02/22 18:07 Freq: Status: Active Protocol: Document 01/13/22 14:33 LRN (Rec: 01/13/22 18:18 LRN [id number]) Lumbar Spine Range of Motion Lumbar Spine Active Degrees Flexion 100 Extension 15 Lateral Flexion Left 28 Lateral Flexion Right 23 Hip Goniometric Range of Motion Hip Right Passive Testing Position Supine Flexion w/Knee Flexed 100 Abduction 50 Internal Rotation 45 External Rotation 45 Left Passive Testing Position Supine Abduction 45 Internal Rotation 30 External Rotation 50 Comments Pain in L groin with Passive hip ER. PT-OP-M Strength Start: 01/02/22 18:07 Freq: Status: Active Protocol: Document 01/13/22 14:33 LRN (Rec: 01/13/22 18:18 LRN [id number]) Trunk Strength Trunk Manual Muscle Testing Testing Position Supine Core Stabilization Doming of core with transfers sit<>supine. Hip Strength Hip Manual Muscle Testing Right External Rotation 3+ Fair+ Internal Rotation 3 Fair Comments Pain in groin and lateral hips with MMT of hip IR Left External Rotation 3 Fair Internal Rotation 3 Fair Comments Pain in groin and lateral hips with MMT of hip IR and active ER PT-OP-Q Treatments Start: 01/02/22 18:07 Freq: Status: Active Protocol: Document 08/04/22 13:20 LRN (Rec: 08/04/22 14:04 LRN [id number]) Self-Care/Home Management Treatment Education Patient Education Home Exercise Program Other Education Discussed Genital vulvar Care and Genital Hygiene Care. Discussed at length proper bowel care and use of step stool/squatty potty if constipated. Discussed lower abdominal throbbing pain with tampon. Pt discussed heavy bleeding with periods, recommended pt talk to her OBGYN regarding herf menstrual cycle and heavy bleeding. Activities Self-Care/Home Management Activities Issued & reviewed HEP: Trunk Rot (feet on wall), Diaphragmatic breathing ( issued, not reviewed), and handouts for proper gential and vulvar care. PT-OP-T Assessment and Plan Start: 01/02/22 18:07 Freq: Status: Active Protocol: Document 08/04/22 13:20 LRN (Rec: 08/04/22 14:04 LRN [id number]) Physical Therapy Assessment Goals Five Impairment Constipation Impairment Type 1 BM's BM once every 3 days. Short Term Goal (STG) BM daily 07/07/22: Has been having daily BM's. STG Duration 03/01/22 (07/07/22: MET GOAL) Hotel Houseman Goal (LTG) Type 3-4 BM's 04/27/22: Type 4 BM's with increased fiber and stool softner. 07/07/22: BM's are type 4. LTG Duration 04/13/22 (07/07/22: MET GOAL) Four Impairment Diastasis Rectus Impairment Doming of abdomen and pain in lower abdomen with supine lying and transfers. Short Term Goal (STG) Strengthen TA resulting in no doming with transfers. 03/03/22: Initiated TA tightening. 07/07/22: TA tightening with light cough, sneeze, laugh type movement. Doming present with transfers and cough, sneeze, laugh movements. STG Duration 08/18/22 progressed 07/07/22. Shelter Goal (LTG) Minimal to no doming with exercise and minimize diastasis rectus. LTG Duration 10/06/22 Three Impairment Urinary leakage Impairment Urinary leakage with lifting too heavy and with sexual intercourse and with cough or sneeze and with exercise. Short Term Goal (STG) Pt able to maintain urinary continence with lifting of baby & coughing. 03/03/22: Leaking but not as much. 07/07/22: Not leaking with lifting baby. 04/27/22: Leaking with coughing, no leak last week. 07/07/22: Not leaking with sneeze or lifting baby. Hasn' t coughed. 08/04/22: Leaking only if holding urine too long. STG Duration 03/14/22 (08/04/22: MET GOAL) Shelter Goal (LTG) Eliminate urinary leakage with sexual intercourse, and 2 months or longer s/p . 07/07/22: Not having intercourse yet. 08/04/22: Not tried intercourse . Pt still . LTG Duration 10/06/22 08/04/22: Pt still and plans to continue. Two Impairment PF pain Impairment Pain in lower abdomen, vaginal region inside, and sometimes around anus, rated 7/10. Cramping pain in abdomen, Throbbing pain at perineum. Short Term Goal (STG) Pt educated in proper bowel mgmt/care, fluid recommendations, vulvar care and genital hygiene. 04/04/22: Pt educated in Bowel program and discussed fluid recommendation. 08/04/22: 2 days of throbbing pain during period 1x in past month (~07/03/22 period). Pt educated in vulvar care and genital hygiene. STG Duration 08/18/22 (08/04/22: MET GOAL) Hotel Houseman Goal (LTG) Decrease to no greater than 1/ 10 or eliminate PF pain in perineum and abdomen. 07/07/22: No lower abdominal pain in a long time. No dairy and having daily BMs. 08/04/22: C/o PF throbbing pain after use of tampon. LTG Duration 04/13/22 regressed since One Impairment Lacks appropriate self care HEP. Short Term Goal (STG) Pt will be educated in proper transfers to protect her DR and to stabilize her core/PF. 03/03/22: Trained for use of TA with transfers. 04/04/22: Educated pt in use of hands to support and I/S in use of towel to support. STG Duration 02/12/22 (04/04/21 MET GOAL) Hotel Houseman Goal (LTG) Independent HEP of self care of PF, jai hip, core strengthening and abdominal self tissue mobilization. 02/13/22: HEP: Bowel massage, I/S in Happy Baby Pose. 04/04/22: HEP: LE Roll in/out for TA tightening. 07/07/22: HEP: hands/knees push for lower TA strengthening. 08/03/22: HEP: Trunk rot strengthening to correct rib flaring and lower abdominal TA tightening. LTG Duration 10/06/22 progressed 08/03/22 Assessment Summary Assessment Pt returns after 4 weeks for advancement of her HEP. She demonstrates improvement in her level of urinary continence and bowel function. She has not attempted intercourse, but since she is , urinary leakage with intercourse may continue . She did have a period of no abdominal pain, but on her return she has had onset of one episode of PF/lower abdominal throbbing pain. She presents with a palpable DR with need of core stabilization ex's to help with DR closure once she is done with . Pt demonstrates improved ability to perform a TA contraction but shows weakness or lack of awareness, with doming on coughing and transfers. She reports having a BM daily, but altenates between hardened stool and loose stool, indicating inconsistency with bowel management. Pt has been reminded of factors effecting her bowel types, and encouraged to be more aware of proper bowel care. She is now able to control urinary leakage unless she waits too long and holds baby, then she is leaking minorly. Th pt will benefit from continued physical therapy to progress PF, jai hip, & core strengthening and for abdominal self tissue mobilization and self care ex' s to help manage her Diastasis Rectus, as it appears to be evident. Physical Therapy Plan Frequency and Duration Frequency of Treatment 1x/Week Plan of Care Start Date 07/07/22 Plan of Care End Date 10/06/22 Next Visit Focus/Plan Next Note Type Treatment Note Next Visit Plan Education: review & discuss HO for postural changes associated to , and HO for use of abdominal support if pt needs reminders. Assess PF pain, Assess EMG biofeedback for relaxation. Stretch to PF, issue wand for self stretching if tolerated, check for anterior PF strengthening. Monitor doming of abdomen with transfers and exercise. Manual: scar mob f/b K-taping, Internal Levator Ani stretching, Jai External PF stretch, and wand for PF stretching if manual stretching is helpful. Support: If needed, try belting pt for Pub symphasis pain reduction and use. Ex: hip strengthening, anterior PF strengthening, Core/TA stab, Pelvic stab. Improve painfree hip and trunk mobility and posture.
--- NOTE | 2022-08-04 16:37 | PT.OTN ---
Current Diagnoses Other female genital prolapse (08/04/22) Physical Therapy Treatment Note PT-OP-A Visit Information Start: 01/02/22 18:07 Freq: Status: Active Protocol: Document 08/04/22 13:20 LRN (Rec: 08/04/22 14:04 LRN [id number]) Out-Patient Physical Therapy Visit Information Visit Information Visit Start Time 13:20 Visit Stop Time 13:58 Total Visit Minutes 38 Visit Number 8 Evaluation Information Evaluation Date 01/13/22 Precautions Precautions Depression controlled with meds, 05/26/21. Pubic symphasis instability, DR concerns & pelvic pain s/p pregnancies, currently . Baby and toddler less than a year apart in age. PT-OP-B Current Condition Start: 01/02/22 18:07 Freq: Status: Active Protocol: Document 01/13/22 14:33 LRN (Rec: 01/13/22 18:18 LRN [id number]) Current Condition History of Current Condition Onset Date 06/19/20 & 05/26/21. Current Complaints Urinary leakage with lifting, cough, sneeze, sexual intercourse. History of Current Condition Pt just had 2 babies back to back, first was almost 10 #. Has weakened PF and leaks urine with lifting too heavy and with sexual intercourse and with cough or sneeze and with exercise. 1st was vaginal delivery (10# baby) with 2nd degree tears requiring stitches. Urinary leakage after childbirth. 2nd was a due to preclampsia with urinary leakage about the same. Pubic pain during pregnancies and was leaking urine with walking . 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 HBP during , but now normal. Currently . Prior Treatments and Tests None Developmental History Developmental History Childbirths 06/19/20 and both boys. Treatment Goals Patient/Caregiver Goals Pt goals: -Eliminate urinary leakage -Minimize her diastasis rectus . -Decrease or eliminate PF pain in pernium and abdomen. -Independent HEP of self care for PF and abdomen. Prior Functional Status Baseline Function- Other Prior to first , no urinary leakage. Prior to second Urinary leakage with lifting, cough, sneeze, sexual intercourse. Post- depression. PF pain with intercourese Current Functional Impairments (Reported) Functional Limitations- Other Urinary leakage with lifting, cough, sneeze, sexual intercourse. Post- depression. PF pain with intercourse in lower abdomen and around vaginal canal. Pain is throbbing, lasts 1-2 hours. Personal Factors Other Personal Factors That May Effect Depression controlled with Therapy/Recovery meds, - 05/26/21. PT-OP-C Subjective Start: 01/02/22 18:07 Freq: Status: Active Protocol: Document 08/04/22 13:20 LRN (Rec: 08/04/22 14:04 LRN [id number]) OP-PT Subjective Patient Comments Patient Comments son for comfort, 2x/day. Not having much leakage anymore. Can pick son up w/o leakage. If holds urine through the day and has urge, if picks up son she has a small amount of leakage, but can get to the bathroom. Having upset stomach this week . Has not had constipation and is drinkking a lot of water and cutting out dairy. After last session had throbbing pain with use of tampon. PT-OP-I Pelvic Floor Start: 01/02/22 18:07 Freq: Status: Active Protocol: Document 02/13/22 15:25 LRN (Rec: 02/13/22 16:53 LRN [id number]) Pelvic Floor Assessment Urine Pelvic Floor Surgery Yes: Grade 2 tear with 1st Urinary Symptoms Pain Leakage Cause Cough,Exercise,Lifting,Sneeze Bowel Bowel Symptoms Constipation,Pain Bowel Movement Frequency 1x every 3-4 days. Previously was voiding daily. Oliver Stool Chart Type 1-7 1 Pelvic Clock Pelvic Clock 12-3 Tightness Pelvic Clock 3-6 Tenderness,Tightness Pelvic Clock 6-9 Tenderness,Tightness Pelvic Clock 9-12 Hypertonic,Tightness Pelvic Clock Other Most tender from Pelvic Clock 3-6 & 6-9. Contraction Ability Manual Muscle Testing Left 2 Manual Muscle Testing Right 3 Manual Muscle Testing Anterior 3 Manual Muscle Testing Posterior 1 Muscle Endurance (Seconds) 1 Number of Quick Contractions In 10 2 Seconds PT-OP-J Posture/Palpation/Skin Start: 01/02/22 18:07 Freq: Status: Active Protocol: Document 08/04/22 13:20 LRN (Rec: 08/04/22 16:15 LRN [id number]) Palpation Assessment Location Abdomen Palpation Location Diastasis Rectus Palpation Details Above Umbilicus (finger widths ): 4 above-1.0, 3 above-deep 2 .0, 2 above-deep 2.5, 1 above-deep 3. Below Umbilicus (finger widths ): 2 below-shallow 2.5, 1 below-deep 2.5. PT-OP-K Range of Motion Start: 01/02/22 18:07 Freq: Status: Active Protocol: Document 01/13/22 14:33 LRN (Rec: 01/13/22 18:18 LRN [id number]) Lumbar Spine Range of Motion Lumbar Spine Active Degrees Flexion 100 Extension 15 Lateral Flexion Left 28 Lateral Flexion Right 23 Hip Goniometric Range of Motion Hip Right Passive Testing Position Supine Flexion w/Knee Flexed 100 Abduction 50 Internal Rotation 45 External Rotation 45 Left Passive Testing Position Supine Abduction 45 Internal Rotation 30 External Rotation 50 Comments Pain in L groin with Passive hip ER. PT-OP-M Strength Start: 01/02/22 18:07 Freq: Status: Active Protocol: Document 01/13/22 14:33 LRN (Rec: 01/13/22 18:18 LRN [id number]) Trunk Strength Trunk Manual Muscle Testing Testing Position Supine Core Stabilization Doming of core with transfers sit<>supine. Hip Strength Hip Manual Muscle Testing Right External Rotation 3+ Fair+ Internal Rotation 3 Fair Comments Pain in groin and lateral hips with MMT of hip IR Left External Rotation 3 Fair Internal Rotation 3 Fair Comments Pain in groin and lateral hips with MMT of hip IR and active ER PT-OP-Q Treatments Start: 01/02/22 18:07 Freq: Status: Active Protocol: Document 08/04/22 13:20 LRN (Rec: 08/04/22 14:04 LRN [id number]) Therapeutic Exercises Supine Exercises Trunk rot Supine Exercise Name Trunk rot - hips in 90/90, arm swing opp of knee swings Side bilateral Reps/Minutes 8' Comments Cuing needed for upper TA & Lower TA contraction and breathing. DR protection training Supine Exercise Name DR protection education-use of support to abdomen with transfer Reps/Minutes 3' Self-Care/Home Management Treatment Education Patient Education Home Exercise Program Other Education Discussed Genital vulvar Care and Genital Hygiene Care. Discussed at length proper bowel care and use of step stool/squatty potty if constipated. Discussed lower abdominal throbbing pain with tampon. Pt discussed heavy bleeding with periods, recommended pt talk to her OBGYN regarding herf menstrual cycle and heavy bleeding. Activities Self-Care/Home Management Activities Issued & reviewed HEP: Trunk Rot (feet on wall), Diaphragmatic breathing ( issued, not reviewed), and handouts for proper gential and vulvar care. PT-OP-T Assessment and Plan Start: 01/02/22 18:07 Freq: Status: Active Protocol: Document 08/04/22 13:20 LRN (Rec: 08/04/22 14:04 LRN [id number]) Physical Therapy Assessment Goals Five Impairment Constipation Impairment Type 1 BM's BM once every 3 days. Short Term Goal (STG) BM daily 07/07/22: Has been having daily BM's. STG Duration 03/01/22 (07/07/22: MET GOAL) System Trainer Goal (LTG) Type 3-4 BM's 04/27/22: Type 4 BM's with increased fiber and stool softner. 07/07/22: BM's are type 4. LTG Duration 04/13/22 (07/07/22: MET GOAL) Four Impairment Diastasis Rectus Impairment Doming of abdomen and pain in lower abdomen with supine lying and transfers. Short Term Goal (STG) Strengthen TA resulting in no doming with transfers. 03/03/22: Initiated TA tightening. 07/07/22: TA tightening with light cough, sneeze, laugh type movement. Doming present with transfers and cough, sneeze, laugh movements. STG Duration 08/18/22 progressed 07/07/22. Mcc Goal (LTG) Minimal to no doming with exercise and minimize diastasis rectus. LTG Duration 10/06/22 Three Impairment Urinary leakage Impairment Urinary leakage with lifting too heavy and with sexual intercourse and with cough or sneeze and with exercise. Short Term Goal (STG) Pt able to maintain urinary continence with lifting of baby & coughing. 03/03/22: Leaking but not as much. 07/07/22: Not leaking with lifting baby. 04/27/22: Leaking with coughing, no leak last week. 07/07/22: Not leaking with sneeze or lifting baby. Hasn' t coughed. 08/04/22: Leaking only if holding urine too long. STG Duration 03/14/22 (08/04/22: MET GOAL) System Trainer Goal (LTG) Eliminate urinary leakage with sexual intercourse, and 2 months or longer s/p . 07/07/22: Not having intercourse yet. 08/04/22: Not tried intercourse . Pt still . LTG Duration 10/06/22 08/04/22: Pt still and plans to continue. Two Impairment PF pain Impairment Pain in lower abdomen, vaginal region inside, and sometimes around anus, rated 7/10. Cramping pain in abdomen, Throbbing pain at perineum. Short Term Goal (STG) Pt educated in proper bowel mgmt/care, fluid recommendations, vulvar care and genital hygiene. 04/04/22: Pt educated in Bowel program and discussed fluid recommendation. 08/04/22: 2 days of throbbing pain during period 1x in past month (~07/03/22 period). Pt educated in vulvar care and genital hygiene. STG Duration 08/18/22 (08/04/22: MET GOAL) Mcc Goal (LTG) Decrease to no greater than 1/ 10 or eliminate PF pain in perineum and abdomen. 07/07/22: No lower abdominal pain in a long time. No dairy and having daily BMs. 08/04/22: C/o PF throbbing pain after use of tampon. LTG Duration 04/13/22 regressed since One Impairment Lacks appropriate self care HEP. Short Term Goal (STG) Pt will be educated in proper transfers to protect her DR and to stabilize her core/PF. 03/03/22: Trained for use of TA with transfers. 04/04/22: Educated pt in use of hands to support and I/S in use of towel to support. STG Duration 02/12/22 (04/04/21 MET GOAL) Mcc Goal (LTG) Independent HEP of self care of PF, jai hip, core strengthening and abdominal self tissue mobilization. 02/13/22: HEP: Bowel massage, I/S in Happy Baby Pose. 04/04/22: HEP: LE Roll in/out for TA tightening. 07/07/22: HEP: hands/knees push for lower TA strengthening. 08/03/22: HEP: Trunk rot strengthening to correct rib flaring and lower abdominal TA tightening. LTG Duration 10/06/22 progressed 08/03/22 Assessment Summary Assessment Pt returns after 4 weeks for advancement of her HEP. She demonstrates improvement in her level of urinary continence and bowel function. She has not attempted intercourse, but since she is , urinary leakage with intercourse may continue . She did have a period of no abdominal pain, but on her return she has had onset of one episode of PF/lower abdominal throbbing pain. She presents with a palpable DR with need of core stabilization ex's to help with DR closure once she is done with . Pt demonstrates improved ability to perform a TA contraction but shows weakness or lack of awareness, with doming on coughing and transfers. She reports having a BM daily, but altenates between hardened stool and loose stool, indicating inconsistency with bowel management. Pt has been reminded of factors effecting her bowel types, and encouraged to be more aware of proper bowel care. She is now able to control urinary leakage unless she waits too long and holds baby, then she is leaking minorly. Th pt will benefit from continued physical therapy to progress PF, jai hip, & core strengthening and for abdominal self tissue mobilization and self care ex' s to help manage her Diastasis Rectus, as it appears to be evident. Physical Therapy Plan Frequency and Duration Frequency of Treatment 1x/Week Plan of Care Start Date 07/07/22 Plan of Care End Date 10/06/22 Next Visit Focus/Plan Next Note Type Treatment Note Next Visit Plan Education: review & discuss HO for postural changes associated to , and HO for use of abdominal support if pt needs reminders. Assess PF pain, Assess EMG biofeedback for relaxation. Stretch to PF, issue wand for self stretching if tolerated, check for anterior PF strengthening. Monitor doming of abdomen with transfers and exercise. Manual: scar mob f/b K-taping, Internal Levator Ani stretching, Jai External PF stretch, and wand for PF stretching if manual stretching is helpful. Support: If needed, try belting pt for Pub symphasis pain reduction and use. Ex: hip strengthening, anterior PF strengthening, Core/TA stab, Pelvic stab. Improve painfree hip and trunk mobility and posture.
--- NOTE | 2022-08-18 16:15 | PT.OTN ---
Current Diagnoses Other female genital prolapse (08/18/22) Physical Therapy Treatment Note PT-OP-A Visit Information Start: 01/02/22 18:07 Freq: Status: Active Protocol: Document 08/18/22 15:03 LRN (Rec: 08/18/22 16:14 LRN [id number]) Out-Patient Physical Therapy Visit Information Visit Information Visit Type Treatment Note Visit Start Time 15:03 Visit Stop Time 15:53 Total Visit Minutes 50 Visit Number 9 Evaluation Information Evaluation Date 01/13/22 Precautions Precautions Depression controlled with meds, 05/26/21. Pubic symphasis instability, DR concerns & pelvic pain s/p pregnancies, currently . Baby and toddler less than a year apart in age. PT-OP-B Current Condition Start: 01/02/22 18:07 Freq: Status: Active Protocol: Document 01/13/22 14:33 LRN (Rec: 01/13/22 18:18 LRN [id number]) Current Condition History of Current Condition Onset Date 06/19/20 & 05/26/21. Current Complaints Urinary leakage with lifting, cough, sneeze, sexual intercourse. History of Current Condition Pt just had 2 babies back to back, first was almost 10 #. Has weakened PF and leaks urine with lifting too heavy and with sexual intercourse and with cough or sneeze and with exercise. 1st was vaginal delivery (10# baby) with 2nd degree tears requiring stitches. Urinary leakage after childbirth. 2nd was a due to preclampsia with urinary leakage about the same. Pubic pain during pregnancies and was leaking urine with walking . 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 HBP during , but now normal. Currently . Prior Treatments and Tests None Developmental History Developmental History Childbirths 06/19/20 and both boys. Treatment Goals Patient/Caregiver Goals Pt goals: -Eliminate urinary leakage -Minimize her diastasis rectus . -Decrease or eliminate PF pain in pernium and abdomen. -Independent HEP of self care for PF and abdomen. Prior Functional Status Baseline Function- Other Prior to first , no urinary leakage. Prior to second Urinary leakage with lifting, cough, sneeze, sexual intercourse. Post- depression. PF pain with intercourese Current Functional Impairments (Reported) Functional Limitations- Other Urinary leakage with lifting, cough, sneeze, sexual intercourse. Post- depression. PF pain with intercourse in lower abdomen and around vaginal canal. Pain is throbbing, lasts 1-2 hours. Personal Factors Other Personal Factors That May Effect Depression controlled with Therapy/Recovery meds, - 05/26/21. PT-OP-C Subjective Start: 01/02/22 18:07 Freq: Status: Active Protocol: Document 08/18/22 15:03 LRN (Rec: 08/18/22 16:14 LRN [id number]) OP-PT Subjective Patient Comments Patient Comments Son hit her scar today and it has been really sore all day. PT-OP-I Pelvic Floor Start: 01/02/22 18:07 Freq: Status: Active Protocol: Document 02/13/22 15:25 LRN (Rec: 02/13/22 16:53 LRN [id number]) Pelvic Floor Assessment Urine Pelvic Floor Surgery Yes: Grade 2 tear with 1st Urinary Symptoms Pain Leakage Cause Cough,Exercise,Lifting,Sneeze Bowel Bowel Symptoms Constipation,Pain Bowel Movement Frequency 1x every 3-4 days. Previously was voiding daily. Leon Stool Chart Type 1-7 1 Pelvic Clock Pelvic Clock 12-3 Tightness Pelvic Clock 3-6 Tenderness,Tightness Pelvic Clock 6-9 Tenderness,Tightness Pelvic Clock 9-12 Hypertonic,Tightness Pelvic Clock Other Most tender from Pelvic Clock 3-6 & 6-9. Contraction Ability Manual Muscle Testing Left 2 Manual Muscle Testing Right 3 Manual Muscle Testing Anterior 3 Manual Muscle Testing Posterior 1 Muscle Endurance (Seconds) 1 Number of Quick Contractions In 10 2 Seconds PT-OP-J Posture/Palpation/Skin Start: 01/02/22 18:07 Freq: Status: Active Protocol: Document 08/04/22 13:20 LRN (Rec: 08/04/22 16:15 LRN [id number]) Palpation Assessment Location Abdomen Palpation Location Diastasis Rectus Palpation Details Above Umbilicus (finger widths ): 4 above-1.0, 3 above-deep 2 .0, 2 above-deep 2.5, 1 above-deep 3. Below Umbilicus (finger widths ): 2 below-shallow 2.5, 1 below-deep 2.5. PT-OP-K Range of Motion Start: 01/02/22 18:07 Freq: Status: Active Protocol: Document 01/13/22 14:33 LRN (Rec: 01/13/22 18:18 LRN [id number]) Lumbar Spine Range of Motion Lumbar Spine Active Degrees Flexion 100 Extension 15 Lateral Flexion Left 28 Lateral Flexion Right 23 Hip Goniometric Range of Motion Hip Right Passive Testing Position Supine Flexion w/Knee Flexed 100 Abduction 50 Internal Rotation 45 External Rotation 45 Left Passive Testing Position Supine Abduction 45 Internal Rotation 30 External Rotation 50 Comments Pain in L groin with Passive hip ER. PT-OP-M Strength Start: 01/02/22 18:07 Freq: Status: Active Protocol: Document 01/13/22 14:33 LRN (Rec: 01/13/22 18:18 LRN [id number]) Trunk Strength Trunk Manual Muscle Testing Testing Position Supine Core Stabilization Doming of core with transfers sit<>supine. Hip Strength Hip Manual Muscle Testing Right External Rotation 3+ Fair+ Internal Rotation 3 Fair Comments Pain in groin and lateral hips with MMT of hip IR Left External Rotation 3 Fair Internal Rotation 3 Fair Comments Pain in groin and lateral hips with MMT of hip IR and active ER PT-OP-Q Treatments Start: 01/02/22 18:07 Freq: Status: Active Protocol: Document 08/18/22 15:03 LRN (Rec: 08/18/22 16:14 LRN [id number]) Therapeutic Exercises Sidelying Exercises TA/Clamshell Sidelying Exercise Name Clamshell Side bilateral Reps/Minutes 15x 2 Standing Exercises Trunk Rot Standing Exercise Name Trunk rot w/arms straight in front Side bilateral Equipment Used Lev 2 TB, 1' away from wall. Reps/Minutes 15x each Comments Cuing for lower abdominal TA tight and Ribs pull in Kenrick Trunk Rot Standing Exercise Name Kenrick Trunk Rot: chest press out. Side bilateral Equipment Used Lev 2 TB, 1' away from wall. Reps/Minutes 15x each Comments Cuing for lower abdominal TA tight and Ribs pull in Manual Therapy Treatment Soft Tissue Mobilization Abdomen Body Location Lateral, caudal/Cephalad and Rot STM Mobilization Type Myofascial Release Intensity/Depth Superficial & moderate Body Position Supine Cesarian section scar mob Body Location Scar mob Intensity/Depth Moderate Body Position Hooklying Taping DR taping Body Location DR Treatment Focus Closure of DR Type of Tape Kinesio Tape Skin Inspection good Comments Pt feeling abdomen more secure and stable w/k-tape Self-Care/Home Management Treatment Education Patient Education Home Exercise Program Other Education Pt educated in safe and proper removal of k-tape w/in 5 days and to roll carefully off, not pull off. Pt I/s to remove with allergic reaction signs. Activities Self-Care/Home Management Activities Issued & reviewed HEP: TA/ Clamshell, hands/knees TA, standing kenrick & active trunk rotation. Lev 2 (orange) K-tape issued. PT-OP-T Assessment and Plan Start: 01/02/22 18:07 Freq: Status: Active Protocol: Document 08/18/22 15:03 LRN (Rec: 08/18/22 16:14 LRN [id number]) Physical Therapy Assessment Goals Five Impairment Constipation Impairment Type 1 BM's BM once every 3 days. Short Term Goal (STG) BM daily 07/07/22: Has been having daily BM's. STG Duration 03/01/22 (07/07/22: MET GOAL) Drug Room Clerk Goal (LTG) Type 3-4 BM's 04/27/22: Type 4 BM's with increased fiber and stool softner. 07/07/22: BM's are type 4. LTG Duration 04/13/22 (07/07/22: MET GOAL) Four Impairment Diastasis Rectus Impairment Doming of abdomen and pain in lower abdomen with supine lying and transfers. Short Term Goal (STG) Strengthen TA resulting in no doming with transfers. 03/03/22: Initiated TA tightening. 07/07/22: TA tightening with light cough, sneeze, laugh type movement. Doming present with transfers and cough, sneeze, laugh movements. STG Duration 08/18/22 progressed 07/07/22. Drug Room Clerk Goal (LTG) Minimal to no doming with exercise and minimize diastasis rectus. LTG Duration 10/06/22 Three Impairment Urinary leakage Impairment Urinary leakage with lifting too heavy and with sexual intercourse and with cough or sneeze and with exercise. Short Term Goal (STG) Pt able to maintain urinary continence with lifting of baby & coughing. 03/03/22: Leaking but not as much. 07/07/22: Not leaking with lifting baby. 04/27/22: Leaking with coughing, no leak last week. 07/07/22: Not leaking with sneeze or lifting baby. Hasn' t coughed. 08/04/22: Leaking only if holding urine too long. STG Duration 03/14/22 (08/04/22: MET GOAL) [facility] Goal (LTG) Eliminate urinary leakage with sexual intercourse, and 2 months or longer s/p . 07/07/22: Not having intercourse yet. 08/04/22: Not tried intercourse . Pt still . 08/18/22: No pain or urinary leakage with intercourse. LTG Duration 10/06/22 08/04/22: Pt still and plans to continue. Two Impairment PF pain Impairment Pain in lower abdomen, vaginal region inside, and sometimes around anus, rated 7/10. Cramping pain in abdomen, Throbbing pain at perineum. Short Term Goal (STG) Pt educated in proper bowel mgmt/care, fluid recommendations, vulvar care and genital hygiene. 04/04/22: Pt educated in Bowel program and discussed fluid recommendation. 08/04/22: 2 days of throbbing pain during period 1x in past month (~07/03/22 period). Pt educated in vulvar care and genital hygiene. STG Duration 08/18/22 (08/04/22: MET GOAL) [facility] Goal (LTG) Decrease to no greater than 1/ 10 or eliminate PF pain in perineum and abdomen. 07/07/22: No lower abdominal pain in a long time. No dairy and having daily BMs. 08/04/22: C/o PF throbbing pain after use of tampon. 08/18/22: Pain in abdomen due to 2yo son jumping on her abdomen. LTG Duration 04/13/22 flare up 08/18/22 One Impairment Lacks appropriate self care HEP. Short Term Goal (STG) Pt will be educated in proper transfers to protect her DR and to stabilize her core/PF. 03/03/22: Trained for use of TA with transfers. 04/04/22: Educated pt in use of hands to support and I/S in use of towel to support. STG Duration 02/12/22 (04/04/21 MET GOAL) [facility] Goal (LTG) Independent HEP of self care of PF, jai hip, core strengthening and abdominal self tissue mobilization. 02/13/22: HEP: Bowel massage, I/S in Happy Baby Pose. 04/04/22: HEP: LE Roll in/out for TA tightening. 07/07/22: HEP: hands/knees push for lower TA strengthening. 08/03/22: HEP: Trunk rot strengthening to correct rib flaring and lower abdominal TA tightening. 08/18/22: HEP: TA/Clamshell, hands/knees TA, standing kenrick & active trunk rotation. LTG Duration 10/06/22 progressed 08/03/22 Progress Towards Goals Progress Comments Progressed HEP Assessment Summary Assessment Pt is s/p with Stress urinary incontinence, core weakness and instability with doming of her abdomen with transfers, and Diastasis Rectus. Today, no c/o PF pain , stating she was able to have intercourse without pain or urinary leakage; therefore PF stretching doesn't appear needed. Unable to monitor doming due to soreness from son jumping on her belly. K- tape helped with pt feeling of protectioni/tightening of abdominal region. Pt able to do rotation ex's and supine abdominal kenrick strengthening without pain. Physical Therapy Plan Frequency and Duration Frequency of Treatment 1x/Week Plan of Care Start Date 07/07/22 Plan of Care End Date 10/06/22 Next Visit Focus/Plan Next Note Type Treatment Note Next Visit Plan Education: review & discuss HO for postural changes associated to , and HO for use of abdominal support if pt needs reminders. Check for anterior PF strengthening needs. Support: If needed, try belting pt for Pub symphasis pain reduction and use. Monitor doming of abdomen with transfers and exercise. Ex: hip strengthening, anterior PF strengthening, Core/TA stab, Pelvic stab. Improve painfree hip and trunk mobility and posture. Manual if PF pain: ?EMG biofeedback for relaxation. Internal Levator Ani stretching, Jai External PF stretch, and wand for PF stretching.
--- NOTE | 2022-08-24 16:20 | PT.OTN ---
Current Diagnoses Other female genital prolapse (08/24/22) Physical Therapy Treatment Note PT-OP-A Visit Information Start: 01/02/22 18:07 Freq: Status: Active Protocol: Document 08/24/22 15:09 LRN (Rec: 08/24/22 16:19 LRN [id number]) Out-Patient Physical Therapy Visit Information Visit Information Visit Type Progress Note Visit Start Time 15:09 Visit Stop Time 15:51 Total Visit Minutes 42 Visit Number 10 Evaluation Information Evaluation Date 01/13/22 Precautions Precautions Depression controlled with meds, 05/26/21. Pubic symphasis instability, DR concerns & pelvic pain s/p pregnancies, currently . Baby and toddler less than a year apart in age. PT-OP-B Current Condition Start: 01/02/22 18:07 Freq: Status: Active Protocol: Document 01/13/22 14:33 LRN (Rec: 01/13/22 18:18 LRN [id number]) Current Condition History of Current Condition Onset Date 06/19/20 & 05/26/21. Current Complaints Urinary leakage with lifting, cough, sneeze, sexual intercourse. History of Current Condition Pt just had 2 babies back to back, first was almost 10 #. Has weakened PF and leaks urine with lifting too heavy and with sexual intercourse and with cough or sneeze and with exercise. 1st was vaginal delivery (10# baby) with 2nd degree tears requiring stitches. Urinary leakage after childbirth. 2nd was a due to preclampsia with urinary leakage about the same. Pubic pain during pregnancies and was leaking urine with walking . 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 HBP during , but now normal. Currently . Prior Treatments and Tests None Developmental History Developmental History Childbirths 06/19/20 and both boys. Treatment Goals Patient/Caregiver Goals Pt goals: -Eliminate urinary leakage -Minimize her diastasis rectus . -Decrease or eliminate PF pain in pernium and abdomen. -Independent HEP of self care for PF and abdomen. Prior Functional Status Baseline Function- Other Prior to first , no urinary leakage. Prior to second Urinary leakage with lifting, cough, sneeze, sexual intercourse. Post- depression. PF pain with intercourese Current Functional Impairments (Reported) Functional Limitations- Other Urinary leakage with lifting, cough, sneeze, sexual intercourse. Post- depression. PF pain with intercourse in lower abdomen and around vaginal canal. Pain is throbbing, lasts 1-2 hours. Personal Factors Other Personal Factors That May Effect Depression controlled with Therapy/Recovery meds, - 05/26/21. PT-OP-C Subjective Start: 01/02/22 18:07 Freq: Status: Active Protocol: Document 08/24/22 15:09 LRN (Rec: 08/24/22 16:19 LRN [id number]) OP-PT Subjective Patient Comments Patient Comments Did a squat a jump without leakage. States she hasn't noticed urinary leakage daily or with intercourse. She denies lower abdominal, pubic symphysis or perineum pain. PT-OP-I Pelvic Floor Start: 01/02/22 18:07 Freq: Status: Active Protocol: Document 02/13/22 15:25 LRN (Rec: 02/13/22 16:53 LRN [id number]) Pelvic Floor Assessment Urine Pelvic Floor Surgery Yes: Grade 2 tear with 1st Urinary Symptoms Pain Leakage Cause Cough,Exercise,Lifting,Sneeze Bowel Bowel Symptoms Constipation,Pain Bowel Movement Frequency 1x every 3-4 days. Previously was voiding daily. Hulen Stool Chart Type 1-7 1 Pelvic Clock Pelvic Clock 12-3 Tightness Pelvic Clock 3-6 Tenderness,Tightness Pelvic Clock 6-9 Tenderness,Tightness Pelvic Clock 9-12 Hypertonic,Tightness Pelvic Clock Other Most tender from Pelvic Clock 3-6 & 6-9. Contraction Ability Manual Muscle Testing Left 2 Manual Muscle Testing Right 3 Manual Muscle Testing Anterior 3 Manual Muscle Testing Posterior 1 Muscle Endurance (Seconds) 1 Number of Quick Contractions In 10 2 Seconds PT-OP-J Posture/Palpation/Skin Start: 01/02/22 18:07 Freq: Status: Active Protocol: Document 08/04/22 13:20 LRN (Rec: 08/04/22 16:15 LRN [id number]) Palpation Assessment Location Abdomen Palpation Location Diastasis Rectus Palpation Details Above Umbilicus (finger widths ): 4 above-1.0, 3 above-deep 2 .0, 2 above-deep 2.5, 1 above-deep 3. Below Umbilicus (finger widths ): 2 below-shallow 2.5, 1 below-deep 2.5. PT-OP-K Range of Motion Start: 01/02/22 18:07 Freq: Status: Active Protocol: Document 01/13/22 14:33 LRN (Rec: 01/13/22 18:18 LRN [id number]) Lumbar Spine Range of Motion Lumbar Spine Active Degrees Flexion 100 Extension 15 Lateral Flexion Left 28 Lateral Flexion Right 23 Hip Goniometric Range of Motion Hip Right Passive Testing Position Supine Flexion w/Knee Flexed 100 Abduction 50 Internal Rotation 45 External Rotation 45 Left Passive Testing Position Supine Abduction 45 Internal Rotation 30 External Rotation 50 Comments Pain in L groin with Passive hip ER. PT-OP-M Strength Start: 01/02/22 18:07 Freq: Status: Active Protocol: Document 01/13/22 14:33 LRN (Rec: 01/13/22 18:18 LRN [id number]) Trunk Strength Trunk Manual Muscle Testing Testing Position Supine Core Stabilization Doming of core with transfers sit<>supine. Hip Strength Hip Manual Muscle Testing Right External Rotation 3+ Fair+ Internal Rotation 3 Fair Comments Pain in groin and lateral hips with MMT of hip IR Left External Rotation 3 Fair Internal Rotation 3 Fair Comments Pain in groin and lateral hips with MMT of hip IR and active ER PT-OP-Q Treatments Start: 01/02/22 18:07 Freq: Status: Active Protocol: Document 08/24/22 15:09 LRN (Rec: 08/24/22 16:19 LRN [id number]) Therapeutic Exercises Supine Exercises Trunk rot Supine Exercise Name Trunk rot - hips in 90/90, arm swing opp of knee swings Side bilateral Reps/Minutes 8' Comments Cuing needed for upper TA & Lower TA contraction and breathing. Standing Exercises Postural trng w/ex Standing Exercise Name Awareness training for ribcage over hips. Trunk Rot Standing Exercise Name Trunk rot w/arms straight in front Side bilateral Equipment Used Lev 2 TB, 1' away from wall. Reps/Minutes 15x each Comments Cuing for lower abdominal TA tight and Ribs pull in Kenrick Trunk Rot Standing Exercise Name Kenrick Trunk Rot: Step outs & chest press out. Side bilateral Equipment Used Lev 2 & Lev 3 TB Reps/Minutes 5x each Comments Cuing for lower abdominal TA tight and Ribs pull in. Other Exercises 1/2 knee Iliopsoas stretch Other Exercise Name 1/2 knee Iliopsoas stretch with 10 breaths, PPT, trunk rotation Side bilateral Reps/Minutes 6' done with breaths, PPT, Trunk rotations Comments Extra time needed for proper positioning and to determine max caitlyn stretch Manual Therapy Treatment Soft Tissue Mobilization Abdomen Body Location Lateral, caudal/Cephalad and Rot STM Mobilization Type Myofascial Release Intensity/Depth Superficial & moderate Body Position Supine PT-OP-T Assessment and Plan Start: 01/02/22 18:07 Freq: Status: Active Protocol: Document 08/24/22 15:09 LRN (Rec: 08/24/22 16:19 LRN [id number]) Physical Therapy Assessment Rehab Potential Rehabilitation Potential Good Evaluation Complexity Number of Personal Factors/Comorbidities 1-2 Number of Body Systems Impaired 4 or More Clinical Presentation at Evaluation Evolving Impairments Impairments Activity Tolerance,Posture,ROM ,Soft Tissue Mobility,Strength ,Transfers Goals Five Impairment Constipation Impairment Type 1 BM's BM once every 3 days. Short Term Goal (STG) BM daily 07/07/22: Has been having daily BM's. STG Duration 03/01/22 (07/07/22: MET GOAL) Dental Technology Advisor Goal (LTG) Type 3-4 BM's 04/27/22: Type 4 BM's with increased fiber and stool softner. 07/07/22: BM's are type 4. LTG Duration 04/13/22 (07/07/22: MET GOAL) Four Impairment Diastasis Rectus Impairment Doming of abdomen and pain in lower abdomen with supine lying and transfers. Short Term Goal (STG) Strengthen TA resulting in no doming with transfers. 03/03/22: Initiated TA tightening. 07/07/22: TA tightening with light cough, sneeze, laugh type movement. Doming present with transfers and cough, sneeze, laugh movements. STG Duration 08/18/22 progressed 07/07/22. Snf Goal (LTG) Minimal to no doming with exercise and minimize diastasis rectus. LTG Duration 10/06/22 Three Impairment Urinary leakage Impairment Urinary leakage with lifting too heavy and with sexual intercourse and with cough or sneeze and with exercise. Short Term Goal (STG) Pt able to maintain urinary continence with lifting of baby & coughing. 03/03/22: Leaking but not as much. 07/07/22: Not leaking with lifting baby. 04/27/22: Leaking with coughing, no leak last week. 07/07/22: Not leaking with sneeze or lifting baby. Hasn' t coughed. 08/04/22: Leaking only if holding urine too long. STG Duration 03/14/22 (08/04/22: MET GOAL) Dental Technology Advisor Goal (LTG) Eliminate urinary leakage with sexual intercourse, and 2 months or longer s/p . 07/07/22: Not having intercourse yet. 08/04/22: Not tried intercourse . Pt still . 08/18/22: No pain or urinary leakage with intercourse. 08/24/22: No pain or urinary leakage with intercourse, and has not noticed urinary leakage. LTG Duration 10/06/22 (08/24/22: MET GOAL) Two Impairment PF pain Impairment Pain in lower abdomen, vaginal region inside, and sometimes around anus, rated 7/10. Cramping pain in abdomen, Throbbing pain at perineum. Short Term Goal (STG) Pt educated in proper bowel mgmt/care, fluid recommendations, vulvar care and genital hygiene. 04/04/22: Pt educated in Bowel program and discussed fluid recommendation. 08/04/22: 2 days of throbbing pain during period 1x in past month (~07/03/22 period). Pt educated in vulvar care and genital hygiene. STG Duration 08/18/22 (08/04/22: MET GOAL) Snf Goal (LTG) Decrease to no greater than 1/ 10 or eliminate PF pain in perineum and abdomen. 07/07/22: No lower abdominal pain in a long time. No dairy and having daily BMs. 08/04/22: C/o PF throbbing pain after use of tampon. 08/18/22: Pain in abdomen due to 2yo son jumping on her abdomen. 08/24/22: No pain in abdomen or PF. Pt is now regulalr with BM and she cut out Diary which has helped a lot. LTG Duration 04/13/22 (08/24/22: MET GOAL ) One Impairment Lacks appropriate self care HEP. Short Term Goal (STG) Pt will be educated in proper transfers to protect her DR and to stabilize her core/PF. 03/03/22: Trained for use of TA with transfers. 04/04/22: Educated pt in use of hands to support and I/S in use of towel to support. STG Duration 02/12/22 (04/04/21 MET GOAL) Snf Goal (LTG) Independent HEP of self care of PF, kayley hip, core strengthening and abdominal self tissue mobilization. 02/13/22: HEP: Bowel massage, I/S in Happy Baby Pose. 04/04/22: HEP: LE Roll in/out for TA tightening. 07/07/22: HEP: hands/knees push for lower TA strengthening. 08/03/22: HEP: Trunk rot strengthening to correct rib flaring and lower abdominal TA tightening. 08/18/22: HEP: TA/Clamshell, hands/knees TA, standing kenrick & active trunk rotation. LTG Duration 10/06/22 progressed 08/03/22 Assessment Summary Assessment Much improvement with symptoms eliminated for urinary leakage, pain in lower abdomen and pain in perineum. Pt reporting no longer having pubic symphysis pain. Anterior PF strength needs reassessment. Pt demonstrates mild abd doming w /head lift and she demonstrates Oblique weakness R Lateral trunk ms (L>R external, R >L internal). Upper trunk External obliques, and lower trunk internal obliques. Pt holds her ribs anterior of her pelvis. Physical Therapy Plan Frequency and Duration Frequency of Treatment 1x/Week Plan of Care Start Date 07/07/22 Plan of Care End Date 10/06/22 Next Visit Focus/Plan Next Note Type Treatment Note Next Visit Plan Assess for doming with transfers. Assess for anterior PF weakness, with strengthening as needed. Education: review & discuss HO for postural changes associated to . Ex: hip strengthening, Cont: Core/TA/Pelvic stab. Monitor doming of abdomen with transfers and exercise. Improve painfree hip and trunk mobility and posture.
--- NOTE | 2022-09-29 18:18 | PT.OTN ---
Current Diagnoses Other female genital prolapse (09/29/22) Physical Therapy Treatment Note PT-OP-A Visit Information Start: 01/02/22 18:07 Freq: Status: Active Protocol: Document 09/29/22 08:51 LRN (Rec: 09/29/22 09:37 LRN [id number]) Out-Patient Physical Therapy Visit Information Visit Information Visit Type Progress Note Visit Start Time 08:51 Visit Stop Time 09:33 Total Visit Minutes 42 Visit Number 8. 11 total. Evaluation Information Evaluation Date 01/13/22 Precautions Precautions Depression controlled with meds, 05/26/21. Pubic symphasis instability, DR concerns & pelvic pain s/p pregnancies, currently . Baby and toddler less than a year apart in age. PT-OP-B Current Condition Start: 01/02/22 18:07 Freq: Status: Active Protocol: Document 01/13/22 14:33 LRN (Rec: 01/13/22 18:18 LRN [id number]) Current Condition History of Current Condition Onset Date 06/19/20 & 05/26/21. Current Complaints Urinary leakage with lifting, cough, sneeze, sexual intercourse. History of Current Condition Pt just had 2 babies back to back, first was almost 10 #. Has weakened PF and leaks urine with lifting too heavy and with sexual intercourse and with cough or sneeze and with exercise. 1st was vaginal delivery (10# baby) with 2nd degree tears requiring stitches. Urinary leakage after childbirth. 2nd was a due to preclampsia with urinary leakage about the same. Pubic pain during pregnancies and was leaking urine with walking . 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 HBP during , but now normal. Currently . Prior Treatments and Tests None Developmental History Developmental History Childbirths 06/19/20 and both boys. Treatment Goals Patient/Caregiver Goals Pt goals: -Eliminate urinary leakage -Minimize her diastasis rectus . -Decrease or eliminate PF pain in pernium and abdomen. -Independent HEP of self care for PF and abdomen. Prior Functional Status Baseline Function- Other Prior to first , no urinary leakage. Prior to second Urinary leakage with lifting, cough, sneeze, sexual intercourse. Post- depression. PF pain with intercourese Current Functional Impairments (Reported) Functional Limitations- Other Urinary leakage with lifting, cough, sneeze, sexual intercourse. Post- depression. PF pain with intercourse in lower abdomen and around vaginal canal. Pain is throbbing, lasts 1-2 hours. Personal Factors Other Personal Factors That May Effect Depression controlled with Therapy/Recovery meds, - 05/26/21. PT-OP-C Subjective Start: 01/02/22 18:07 Freq: Status: Active Protocol: Document 09/29/22 08:51 LRN (Rec: 09/29/22 09:37 LRN [id number]) OP-PT Subjective Patient Comments Patient Comments Starting to leak again, 2x, from laughing too hard. In the past week, urges are getting strong again and sometimes hard to control. PT-OP-I Pelvic Floor Start: 01/02/22 18:07 Freq: Status: Active Protocol: Document 02/13/22 15:25 LRN (Rec: 02/13/22 16:53 LRN [id number]) Pelvic Floor Assessment Urine Pelvic Floor Surgery Yes: Grade 2 tear with 1st Urinary Symptoms Pain Leakage Cause Cough,Exercise,Lifting,Sneeze Bowel Bowel Symptoms Constipation,Pain Bowel Movement Frequency 1x every 3-4 days. Previously was voiding daily. Motley Stool Chart Type 1-7 1 Pelvic Clock Pelvic Clock 12-3 Tightness Pelvic Clock 3-6 Tenderness,Tightness Pelvic Clock 6-9 Tenderness,Tightness Pelvic Clock 9-12 Hypertonic,Tightness Pelvic Clock Other Most tender from Pelvic Clock 3-6 & 6-9. Contraction Ability Manual Muscle Testing Left 2 Manual Muscle Testing Right 3 Manual Muscle Testing Anterior 3 Manual Muscle Testing Posterior 1 Muscle Endurance (Seconds) 1 Number of Quick Contractions In 10 2 Seconds PT-OP-J Posture/Palpation/Skin Start: 01/02/22 18:07 Freq: Status: Active Protocol: Document 08/04/22 13:20 LRN (Rec: 08/04/22 16:15 LRN [id number]) Palpation Assessment Location Abdomen Palpation Location Diastasis Rectus Palpation Details Above Umbilicus (finger widths ): 4 above-1.0, 3 above-deep 2 .0, 2 above-deep 2.5, 1 above-deep 3. Below Umbilicus (finger widths ): 2 below-shallow 2.5, 1 below-deep 2.5. PT-OP-K Range of Motion Start: 01/02/22 18:07 Freq: Status: Active Protocol: Document 01/13/22 14:33 LRN (Rec: 01/13/22 18:18 LRN [id number]) Lumbar Spine Range of Motion Lumbar Spine Active Degrees Flexion 100 Extension 15 Lateral Flexion Left 28 Lateral Flexion Right 23 Hip Goniometric Range of Motion Hip Right Passive Testing Position Supine Flexion w/Knee Flexed 100 Abduction 50 Internal Rotation 45 External Rotation 45 Left Passive Testing Position Supine Abduction 45 Internal Rotation 30 External Rotation 50 Comments Pain in L groin with Passive hip ER. PT-OP-M Strength Start: 01/02/22 18:07 Freq: Status: Active Protocol: Document 01/13/22 14:33 LRN (Rec: 01/13/22 18:18 LRN [id number]) Trunk Strength Trunk Manual Muscle Testing Testing Position Supine Core Stabilization Doming of core with transfers sit<>supine. Hip Strength Hip Manual Muscle Testing Right External Rotation 3+ Fair+ Internal Rotation 3 Fair Comments Pain in groin and lateral hips with MMT of hip IR Left External Rotation 3 Fair Internal Rotation 3 Fair Comments Pain in groin and lateral hips with MMT of hip IR and active ER PT-OP-Q Treatments Start: 01/02/22 18:07 Freq: Status: Active Protocol: Document 09/29/22 08:51 LRN (Rec: 09/29/22 09:37 LRN [id number]) Therapeutic Exercises Supine Exercises TA/Head lifts Supine Exercise Name TA/Head lifts Trunk rot Supine Exercise Name Trunk rot - hips in 90/90, arm swing opp of knee swings Side bilateral Reps/Minutes 8' Comments Cuing needed for upper TA & Lower TA contraction and breathing. Sitting Exercises Trunk rot/TA Sitting Exercise Name Trunk rot/TA/proper breath Side bilateral Reps/Minutes 8' Comments Cuing for R side and breath Standing Exercises Trunk Rot Standing Exercise Name Trunk rot w/arms straight in front Side bilateral Reps/Minutes 4' Comments Cuing for lower abdominal TA tight and Ribs pull in L>R Other Exercises 1/2 knee Iliopsoas stretch Other Exercise Name 1/2 knee Iliopsoas stretch with 10 breaths, PPT, trunk rotation Side bilateral Reps/Minutes 3' done with breaths, PPT Comments Extra time needed for proper positioning and to determine max caitlyn stretch Manual Therapy Treatment Soft Tissue Mobilization Abdomen Body Location Abdomen below umbilicus Mobilization Type Myofascial Release,Sustained Pressure Intensity/Depth Moderate Body Position Supine Comments Abdominal distraction, lateral glide to left and CCW. Pt shown how to self mob R side with mob to the left. Self-Care/Home Management Treatment Education Other Education Pt re-education in Urge deference technique, need to continue Kegels ex's, discussed fluid intake amounts and types. Pt noting she has been drinking more coffee, that might be the problem with her increase in urinary urges . PT-OP-T Assessment and Plan Start: 01/02/22 18:07 Freq: Status: Active Protocol: Document 09/29/22 08:51 LRN (Rec: 09/29/22 09:37 LRN [id number]) Physical Therapy Assessment Rehab Potential Rehabilitation Potential Good Evaluation Complexity Number of Personal Factors/Comorbidities 1-2 Number of Body Systems Impaired 4 or More Clinical Presentation at Evaluation Evolving Impairments Impairments Activity Tolerance,Posture,ROM ,Soft Tissue Mobility,Strength ,Transfers Goals Four Impairment Diastasis Rectus Impairment Doming of abdomen and pain in lower abdomen with supine lying and transfers.v Short Term Goal (STG) Strengthen TA resulting in no doming with transfers. 03/03/22: Initiated TA tightening. 07/07/22: TA tightening with light cough, sneeze, laugh type movement. Doming present with transfers and cough, sneeze, laugh movements 09/29/22: Mild doming in lower abdomen with transfers and head lift. STG Duration 08/18/22 progressed 07/07/22. Mechanical Planner Goal (LTG) Minimal to no doming with exercise and minimize diastasis rectus. 09/29/22: Diastasis around umbilicus and above umbilicus. 4 above is 1.5 finger(f)- width, 3 above is 2 f-width, 2 above is 2.25 f-width, 1 above is 2.5 f-width, Below umbilicus 1 is 2 f-widths, 2 below is very very shallow. LTG Duration 10/06/22 progressed 09/29/22 One Impairment Lacks appropriate self care HEP. Short Term Goal (STG) Pt will be educated in proper transfers to protect her DR and to stabilize her core/PF. 03/03/22: Trained for use of TA with transfers. 1/3/23: Educated pt in use of hands to support and I/S in use of towel to support. STG Duration 02/12/22 (04/04/21 MET GOAL) Senior Living Goal (LTG) Independent HEP of self care of PF, kayley hip, core strengthening and abdominal self tissue mobilization. 02/13/22: HEP: Bowel massage, I/S in Happy Baby Pose. 04/04/22: HEP: LE Roll in/out for TA tightening. 07/07/22: HEP: hands/knees push for lower TA strengthening. 08/03/22: HEP: Trunk rot strengthening to correct rib flaring and lower abdominal TA tightening. 08/18/22: HEP: TA/Clamshell, hands/knees TA, standing gene & active trunk rotation. LTG Duration 10/06/22 progressed 08/03/22 Assessment Summary Assessment Pt is s/p , initially with stress urinary incontinence, core weakness and instability with doming of her abdomen with transfers, and Diastasis Rectus. She has not been able to attend therapy for an extended period of time due to lack of appointment availability. She attends today with return of stress urinary incontinence with admittedly not being as consistent with her HEP as she has been. She also reported increased in urinary urgency, but it has been determined it may be due to her increase in coffee drinking with less water intake. On internal assessment the pt appeared to have a bump close to the entry and deeper inside at ~5-6 of the PF clock. This may have been stool in the rectum and will be assessed further at her next appointment. If the bump is still present she will be referred back to your office for follow up assessment. Today, her Diastasis Rectus ( DR) was found to have improved in her lower abdominal region , but remains present above the umbilicus (see measurements above, LTG #4). Ruby has 4 more visits available on her referral and she would like to continue to work towards reduction of her DR and improving her level of urinary continence. I believe the pt would benefit from further skilled physical therapy to improve her core stability, strengthen her TA and PF strength to work towards achieving the above stated goals. Please call if you have questions or concerns. Physical Therapy Plan Frequency and Duration Frequency of Treatment 1x/Week Plan of Care Start Date 09/29/22 Plan of Care End Date 11/13/22 Therapeutic Interventions Therapeutic Interventions Home Exercise Program,Joint Mobilizations,Manual Therapy, Neuromuscular Re-education, Self-Care/Home Management,Soft Tissue Mobilization, Therapeutic Activities, Therapeutic Exercises Modalities Biofeedback,Cold Pack/Ice Massage,Electric Stimulation, Hot Packs Next Visit Focus/Plan Next Note Type Treatment Note Next Visit Plan Assess PF for bump at 5-6 of PF clock and for doming with transfers. Assess for anterior PF weakness, with strengthening as needed. Education: review & discuss HO for postural changes associated to . Ex: hip strengthening, Cont: Core/TA/Pelvic stab. Monitor doming of abdomen with transfers and exercise. Improve painfree hip and trunk mobility and posture.
--- NOTE | 2022-09-29 18:19 | PT.OPPOC ---
Physical, Occupational & Speech Therapy At [facility] Current Diagnoses Other female genital prolapse (09/29/22) Visit Care Team Role Provider Type Sierra Hollis PA-C Primary Care Provider Non-Staff Specialty: Medical Address: [address] [place] [address] [place], [facility] [address], [place], [address] Email: Bonnie Lee MD Family Provider Non-Staff Specialty: [employer] L[employer] UP WORKER Address: [address] [place] [address], [id number] Email: Abran Zimmerman MD Attending Provider Non-Staff Referring Provider Specialty: F[employer] LAY UP WORKER Address: [address] [place] [address], [address], [place], [address] Email: Plan Of Care PT-OP-T Assessment and Plan Start: 01/02/22 18:07 Freq: Status: Active Protocol: Document 09/29/22 08:51 LRN (Rec: 09/29/22 09:37 LRN [id number]) Physical Therapy Assessment Rehab Potential Rehabilitation Potential Good Evaluation Complexity Number of Personal Factors/Comorbidities 1-2 Number of Body Systems Impaired 4 or More Clinical Presentation at Evaluation Evolving Impairments Impairments Activity Tolerance,Posture,ROM ,Soft Tissue Mobility,Strength ,Transfers Goals Four Impairment Diastasis Rectus Impairment Doming of abdomen and pain in lower abdomen with supine lying and transfers.v Short Term Goal (STG) Strengthen TA resulting in no doming with transfers. 03/03/22: Initiated TA tightening. 07/07/22: TA tightening with light cough, sneeze, laugh type movement. Doming present with transfers and cough, sneeze, laugh movements 09/29/22: Mild doming in lower abdomen with transfers and head lift. STG Duration 08/18/22 progressed 07/07/22. Precision Structural Metal Fitter Goal (LTG) Minimal to no doming with exercise and minimize diastasis rectus. 09/29/22: Diastasis around umbilicus and above umbilicus. 4 above is 1.5 finger(f)- width, 3 above is 2 f-width, 2 above is 2.25 f-width, 1 above is 2.5 f-width, Below umbilicus 1 is 2 f-widths, 2 below is very very shallow. LTG Duration 10/06/22 progressed 09/29/22 One Impairment Lacks appropriate self care HEP. Short Term Goal (STG) Pt will be educated in proper transfers to protect her DR and to stabilize her core/PF. 03/03/22: Trained for use of TA with transfers. 04/04/22: Educated pt in use of hands to support and I/S in use of towel to support. STG Duration 02/12/22 (04/04/21 MET GOAL) Precision Structural Metal Fitter Goal (LTG) Independent HEP of self care of PF, kayley hip, core strengthening and abdominal self tissue mobilization. 02/13/22: HEP: Bowel massage, I/S in Happy Baby Pose. 04/04/22: HEP: LE Roll in/out for TA tightening. 07/07/22: HEP: hands/knees push for lower TA strengthening. 08/03/22: HEP: Trunk rot strengthening to correct rib flaring and lower abdominal TA tightening. 08/18/22: HEP: TA/Clamshell, hands/knees TA, standing gene & active trunk rotation. LTG Duration 10/06/22 progressed 08/03/22 Assessment Summary Assessment Pt is s/p , initially with stress urinary incontinence, core weakness and instability with doming of her abdomen with transfers, and Diastasis Rectus. She has not been able to attend therapy for an extended period of time due to lack of appointment availability. She attends today with return of stress urinary incontinence with admittedly not being as consistent with her HEP as she has been. She also reported increased in urinary urgency, but it has been determined it may be due to her increase in coffee drinking with less water intake. On internal assessment the pt appeared to have a bump close to the entry and deeper inside at ~5-6 of the PF clock. This may have been stool in the rectum and will be assessed further at her next appointment. If the bump is still present she will be referred back to your office for follow up assessment. Today, her Diastasis Rectus ( DR) was found to have improved in her lower abdominal region , but remains present above the umbilicus (see measurements above, LTG #4). Ruby has 4 more visits available on her referral and she would like to continue to work towards reduction of her DR and improving her level of urinary continence. I believe the pt would benefit from further skilled physical therapy to improve her core stability, strengthen her TA and PF strength to work towards achieving the above stated goals. Please call if you have questions or concerns. Physical Therapy Plan Frequency and Duration Frequency of Treatment 1x/Week Plan of Care Start Date 09/29/22 Plan of Care End Date 11/13/22 Therapeutic Interventions Therapeutic Interventions Home Exercise Program,Joint Mobilizations,Manual Therapy, Neuromuscular Re-education, Self-Care/Home Management,Soft Tissue Mobilization, Therapeutic Activities, Therapeutic Exercises Modalities Biofeedback,Cold Pack/Ice Massage,Electric Stimulation, Hot Packs Next Visit Focus/Plan Next Note Type Treatment Note Next Visit Plan Assess PF for bump at 5-6 of PF clock and for doming with transfers. Assess for anterior PF weakness, with strengthening as needed. Education: review & discuss HO for postural changes associated to . Ex: hip strengthening, Cont: Core/TA/Pelvic stab. Monitor doming of abdomen with transfers and exercise. Improve painfree hip and trunk mobility and posture. Plan of Care Dates Plan of Care Start Date 09/29/22 Plan of Care End Date 11/13/22 Electronically Signed by: Iva Reyes, PT 09/29/22 [id number] If you are in agreement with this Plan of Care, please return a signed and dated copy. I have reviewed this Plan of Care and certify that the skilled therapy services above are required to meet the patient?s needs. Physician Signature Date Printed Name and Credentials Clinical Instructor Signature Printed Name and Credentials
--- NOTE | 2022-10-13 16:46 | PT.OTN ---
Current Diagnoses Other female genital prolapse (10/13/22) Physical Therapy Treatment Note PT-OP-A Visit Information Start: 01/02/22 18:07 Freq: Status: Active Protocol: Document 10/13/22 09:36 LRN (Rec: 10/13/22 10:24 LRN [id number]) Out-Patient Physical Therapy Visit Information Visit Information Visit Type Treatment Note Visit Start Time 09:32 Visit Stop Time 10:12 Total Visit Minutes 40 Visit Number 12/12. 12 total. Evaluation Information Evaluation Date 01/13/22 Precautions Precautions Depression controlled with meds, 05/26/21. Pubic symphasis instability, DR concerns & pelvic pain s/p pregnancies, currently . Baby and toddler less than a year apart in age. PT-OP-B Current Condition Start: 01/02/22 18:07 Freq: Status: Active Protocol: Document 01/13/22 14:33 LRN (Rec: 01/13/22 18:18 LRN [id number]) Current Condition History of Current Condition Onset Date 06/19/20 & 05/26/21. Current Complaints Urinary leakage with lifting, cough, sneeze, sexual intercourse. History of Current Condition Pt just had 2 babies back to back, first was almost 10 #. Has weakened PF and leaks urine with lifting too heavy and with sexual intercourse and with cough or sneeze and with exercise. 1st was vaginal delivery (10# baby) with 2nd degree tears requiring stitches. Urinary leakage after childbirth. 2nd was a due to preclampsia with urinary leakage about the same. Pubic pain during pregnancies and was leaking urine with walking . 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 HBP during , but now normal. Currently . Prior Treatments and Tests None Developmental History Developmental History Childbirths 06/19/20 and both boys. Treatment Goals Patient/Caregiver Goals Pt goals: -Eliminate urinary leakage -Minimize her diastasis rectus . -Decrease or eliminate PF pain in pernium and abdomen. -Independent HEP of self care for PF and abdomen. Prior Functional Status Baseline Function- Other Prior to first , no urinary leakage. Prior to second Urinary leakage with lifting, cough, sneeze, sexual intercourse. Post- depression. PF pain with intercourese Current Functional Impairments (Reported) Functional Limitations- Other Urinary leakage with lifting, cough, sneeze, sexual intercourse. Post- depression. PF pain with intercourse in lower abdomen and around vaginal canal. Pain is throbbing, lasts 1-2 hours. Personal Factors Other Personal Factors That May Effect Depression controlled with Therapy/Recovery meds, - 05/26/21. PT-OP-C Subjective Start: 01/02/22 18:07 Freq: Status: Active Protocol: Document 10/13/22 09:36 LRN (Rec: 10/13/22 10:24 LRN [id number]) OP-PT Subjective Patient Comments Patient Comments States she is on a new probiotic so her stomach is upset. No urinary leakage. PT-OP-I Pelvic Floor Start: 01/02/22 18:07 Freq: Status: Active Protocol: Document 02/13/22 15:25 LRN (Rec: 02/13/22 16:53 LRN [id number]) Pelvic Floor Assessment Urine Pelvic Floor Surgery Yes: Grade 2 tear with 1st Urinary Symptoms Pain Leakage Cause Cough,Exercise,Lifting,Sneeze Bowel Bowel Symptoms Constipation,Pain Bowel Movement Frequency 1x every 3-4 days. Previously was voiding daily. [place] Stool Chart Type 1-7 1 Pelvic Clock Pelvic Clock 12-3 Tightness Pelvic Clock 3-6 Tenderness,Tightness Pelvic Clock 6-9 Tenderness,Tightness Pelvic Clock 9-12 Hypertonic,Tightness Pelvic Clock Other Most tender from Pelvic Clock 3-6 & 6-9. Contraction Ability Manual Muscle Testing Left 2 Manual Muscle Testing Right 3 Manual Muscle Testing Anterior 3 Manual Muscle Testing Posterior 1 Muscle Endurance (Seconds) 1 Number of Quick Contractions In 10 2 Seconds PT-OP-J Posture/Palpation/Skin Start: 01/02/22 18:07 Freq: Status: Active Protocol: Document 10/13/22 09:36 LRN (Rec: 10/13/22 16:40 LRN [id number]) Palpation Assessment Location Abdomen Palpation Location Diastasis Rectus Palpation Details Above Umbilicus (finger widths ): 4 above-1.5, 3 above-deep 2 .25, 2 above-deep 2.25, 1 above-deep 2.5. Below Umbilicus (finger widths ): 2 below-shallow/CLOSED, 1 below-deep 1.5 Very shallow. PT-OP-K Range of Motion Start: 01/02/22 18:07 Freq: Status: Active Protocol: Document 01/13/22 14:33 LRN (Rec: 01/13/22 18:18 LRN [id number]) Lumbar Spine Range of Motion Lumbar Spine Active Degrees Flexion 100 Extension 15 Lateral Flexion Left 28 Lateral Flexion Right 23 Hip Goniometric Range of Motion Hip Right Passive Testing Position Supine Flexion w/Knee Flexed 100 Abduction 50 Internal Rotation 45 External Rotation 45 Left Passive Testing Position Supine Abduction 45 Internal Rotation 30 External Rotation 50 Comments Pain in L groin with Passive hip ER. PT-OP-M Strength Start: 01/02/22 18:07 Freq: Status: Active Protocol: Document 01/13/22 14:33 LRN (Rec: 01/13/22 18:18 LRN [id number]) Trunk Strength Trunk Manual Muscle Testing Testing Position Supine Core Stabilization Doming of core with transfers sit<>supine. Hip Strength Hip Manual Muscle Testing Right External Rotation 3+ Fair+ Internal Rotation 3 Fair Comments Pain in groin and lateral hips with MMT of hip IR Left External Rotation 3 Fair Internal Rotation 3 Fair Comments Pain in groin and lateral hips with MMT of hip IR and active ER PT-OP-Q Treatments Start: 01/02/22 18:07 Freq: Status: Active Protocol: Document 10/13/22 09:36 LRN (Rec: 10/13/22 10:24 LRN [id number]) Therapeutic Exercises Supine Exercises Chest Breathing Supine Exercise Name Chest breathing w/cuing and with arms overhead. Reps/Minutes 4' TA/Head lifts Supine Exercise Name TA/Head lifts and arms horiz AB/AD. Trunk rot Supine Exercise Name Trunk rot for upper rib rot Side bilateral Equipment Used 5# Reps/Minutes 8' Sidelying Exercises TA/Hip AD Sidelying Exercise Name TA/hip AB Side bilateral TA/Hip AB Sidelying Exercise Name TA/hip AB Side bilateral Reps/Minutes 10x each Other Exercises 4 pt: TA/KTC Other Exercise Name TA/KTC Side bilateral Reps/Minutes 5x each 4 pt: TA tightening Other Exercise Name TA tightening Reps/Minutes 2' Self-Care/Home Management Treatment Education Patient Education Home Exercise Program Activities Self-Care/Home Management Activities Issued & reviewed HEP: TA/Hip AD, TA/Hip AB, Hip Ext (prone & standing) PT-OP-T Assessment and Plan Start: 01/02/22 18:07 Freq: Status: Active Protocol: Document 10/13/22 09:36 LRN (Rec: 10/13/22 10:24 LRN [id number]) Physical Therapy Assessment Goals Four Impairment Diastasis Rectus Impairment Doming of abdomen and pain in lower abdomen with supine lying and transfers.v Short Term Goal (STG) Strengthen TA resulting in no doming with transfers. 03/03/22: Initiated TA tightening. 07/07/22: TA tightening with light cough, sneeze, laugh type movement. Doming present with transfers and cough, sneeze, laugh movements 09/29/22: Mild doming in lower abdomen with transfers and head lift. STG Duration 08/18/22 progressed 07/07/22. Interface Control Officer Goal (LTG) Minimal to no doming with exercise and minimize diastasis rectus. 09/29/22: Diastasis around umbilicus and above umbilicus. 4 above is 1.5 finger(f)- width, 3 above is 2 f-width, 2 above is 2.25 f-width, 1 above is 2.5 f-width, Below umbilicus 1 is 2 f-widths, 2 below is very very shallow. 10/13/22: Mostly closed below umbilicus. 1 below is 1.5 and shallow. Mild improvement 1 above umbilicus. LTG Duration 10/06/22 progressed 10/13/22 One Impairment Lacks appropriate self care HEP. Short Term Goal (STG) Pt will be educated in proper transfers to protect her DR and to stabilize her core/PF. 03/03/22: Trained for use of TA with transfers. 04/04/22: Educated pt in use of hands to support and I/S in use of towel to support. STG Duration 02/12/22 (04/04/21 MET GOAL) Interface Control Officer Goal (LTG) Independent HEP of self care of PF, kayley hip, core strengthening and abdominal self tissue mobilization. 02/13/22: HEP: Bowel massage, I/S in Happy Baby Pose. 04/04/22: HEP: LE Roll in/out for TA tightening. 07/07/22: HEP: hands/knees push for lower TA strengthening. 08/03/22: HEP: Trunk rot strengthening to correct rib flaring and lower abdominal TA tightening. 08/18/22: HEP: TA/Clamshell, hands/knees TA, standing gene & active trunk rotation. 10/13/22: HEP: TA/Hip AB, AD, TA hip ext prone & stand LTG Duration 10/06/22 progressed 10/13/22 Assessment Summary Assessment Pt is s/p , initially with stress urinary incontinence, core weakness and instability with doming of her abdomen with transfers, and Diastasis Rectus. Closing of DR below umbilicus. DR above umbilicus present, mild improvement. Physical Therapy Plan Frequency and Duration Frequency of Treatment 1x/Week Plan of Care Start Date 09/29/22 Plan of Care End Date 11/13/22 Next Visit Focus/Plan Next Note Type Progress Note Next Visit Plan DC in 3 visits. Assess PF for bump at 5-6 of PF clock and for doming with transfers. Assess for anterior PF weakness, with strengthening as needed. Education: review & discuss HO for postural changes associated to . Ex: hip strengthening, Cont: Core/TA/Pelvic stab. Monitor doming of abdomen with transfers and exercise. Improve painfree hip and trunk mobility and posture.
--- NOTE | 2022-11-07 13:34 | PT-OP ANOTE ---
Msg left per phone notifying pt of missed appt and informed pt next appt 11/17/22 at 2p.
--- NOTE | 2022-11-24 11:35 | PT-OP ANOTE ---
Pt canceled her remaining appt today via pt connect service. Pt called and message left notifying pt of 3rd cancellation in a row and that her plan of care has now ; therefore she will have to be discharged from therapy. Pt advised if further therapy is needed that she should call her referring physician and seek a new referral to restart PT rehab. Pt advised she could call if she has any questions or concerns, but she is being discharged from PT.
--- NOTE | 2022-11-24 11:47 | PT.OPDS ---
Current Diagnoses Other female genital prolapse (10/13/22) Visit Care Team Role Provider Type Sierra Hollis PA-C Primary Care Provider Non-Staff Specialty: Medical Address: [facility] [address], [address], [place], [address] Email: Bonnie Lee MD Family Provider Non-Staff Specialty: LOOP SEWER Address: [address] [place], [address] Email: Abran Zimmerman MD Attending Provider Non-Staff Referring Provider Specialty: LOOP SEWER Address: [address] [place], [place] [address]ot [facility], [address], [place], [address] Email: Visit Number Visit Number 12/12. 12 total. Discharge Summary PT-OP-B Current Condition Start: 01/02/22 18:07 Freq: Status: Active Protocol: Document 01/13/22 14:33 LRN (Rec: 01/13/22 18:18 LRN [id number]) Current Condition History of Current Condition Onset Date 06/19/20 & 05/26/21. Current Complaints Urinary leakage with lifting, cough, sneeze, sexual intercourse. History of Current Condition Pt just had 2 babies back to back, first was almost 10 #. Has weakened PF and leaks urine with lifting too heavy and with sexual intercourse and with cough or sneeze and with exercise. 1st was vaginal delivery (10# baby) with 2nd degree tears requiring stitches. Urinary leakage after childbirth. 2nd was a due to preclampsia with urinary leakage about the same. Pubic pain during pregnancies and was leaking urine with walking . 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 HBP during , but now normal. Currently . Prior Treatments and Tests None Developmental History Developmental History Childbirths 06/19/20 and both boys. Treatment Goals Patient/Caregiver Goals Pt goals: -Eliminate urinary leakage -Minimize her diastasis rectus . -Decrease or eliminate PF pain in pernium and abdomen. -Independent HEP of self care for PF and abdomen. Prior Functional Status Baseline Function- Other Prior to first , no urinary leakage. Prior to second Urinary leakage with lifting, cough, sneeze, sexual intercourse. Post- depression. PF pain with intercourese Current Functional Impairments (Reported) Functional Limitations- Other Urinary leakage with lifting, cough, sneeze, sexual intercourse. Post- depression. PF pain with intercourse in lower abdomen and around vaginal canal. Pain is throbbing, lasts 1-2 hours. Personal Factors Other Personal Factors That May Effect Depression controlled with Therapy/Recovery meds, - 05/26/21. PT-OP-C Subjective Start: 01/02/22 18:07 Freq: Status: Active Protocol: Document 10/13/22 09:36 LRN (Rec: 10/13/22 10:24 LRN [id number]) OP-PT Subjective Patient Comments Patient Comments States she is on a new probiotic so her stomach is upset. No urinary leakage. PT-OP-I Pelvic Floor Start: 01/02/22 18:07 Freq: Status: Active Protocol: Document 02/13/22 15:25 LRN (Rec: 02/13/22 16:53 LRN [id number]) Pelvic Floor Assessment Urine Pelvic Floor Surgery Yes: Grade 2 tear with 1st Urinary Symptoms Pain Leakage Cause Cough,Exercise,Lifting,Sneeze Bowel Bowel Symptoms Constipation,Pain Bowel Movement Frequency 1x every 3-4 days. Previously was voiding daily. [place] Stool Chart Type 1-7 1 Pelvic Clock Pelvic Clock 12-3 Tightness Pelvic Clock 3-6 Tenderness,Tightness Pelvic Clock 6-9 Tenderness,Tightness Pelvic Clock 9-12 Hypertonic,Tightness Pelvic Clock Other Most tender from Pelvic Clock 3-6 & 6-9. Contraction Ability Manual Muscle Testing Left 2 Manual Muscle Testing Right 3 Manual Muscle Testing Anterior 3 Manual Muscle Testing Posterior 1 Muscle Endurance (Seconds) 1 Number of Quick Contractions In 10 2 Seconds PT-OP-J Posture/Palpation/Skin Start: 01/02/22 18:07 Freq: Status: Active Protocol: Document 10/13/22 09:36 LRN (Rec: 10/13/22 16:40 LRN [id number]) Palpation Assessment Location Abdomen Palpation Location Diastasis Rectus Palpation Details Above Umbilicus (finger widths ): 4 above-1.5, 3 above-deep 2 .25, 2 above-deep 2.25, 1 above-deep 2.5. Below Umbilicus (finger widths ): 2 below-shallow/CLOSED, 1 below-deep 1.5 Very shallow. PT-OP-K Range of Motion Start: 01/02/22 18:07 Freq: Status: Active Protocol: Document 01/13/22 14:33 LRN (Rec: 01/13/22 18:18 LRN [id number]) Lumbar Spine Range of Motion Lumbar Spine Active Degrees Flexion 100 Extension 15 Lateral Flexion Left 28 Lateral Flexion Right 23 Hip Goniometric Range of Motion Hip Right Passive Testing Position Supine Flexion w/Knee Flexed 100 Abduction 50 Internal Rotation 45 External Rotation 45 Left Passive Testing Position Supine Abduction 45 Internal Rotation 30 External Rotation 50 Comments Pain in L groin with Passive hip ER. PT-OP-M Strength Start: 01/02/22 18:07 Freq: Status: Active Protocol: Document 01/13/22 14:33 LRN (Rec: 01/13/22 18:18 LRN [id number]) Trunk Strength Trunk Manual Muscle Testing Testing Position Supine Core Stabilization Doming of core with transfers sit<>supine. Hip Strength Hip Manual Muscle Testing Right External Rotation 3+ Fair+ Internal Rotation 3 Fair Comments Pain in groin and lateral hips with MMT of hip IR Left External Rotation 3 Fair Internal Rotation 3 Fair Comments Pain in groin and lateral hips with MMT of hip IR and active ER PT-OP-T Assessment and Plan Start: 01/02/22 18:07 Freq: Status: Active Protocol: Document 11/24/22 11:38 LRN (Rec: 11/24/22 11:47 LRN [id number]) Physical Therapy Assessment Goals Five Impairment Constipation Impairment Type 1 BM's BM once every 3 days. Short Term Goal (STG) BM daily 07/07/22: Has been having daily BM's. STG Duration 03/01/22 (07/07/22: MET GOAL) Retirement Goal (LTG) Type 3-4 BM's 04/27/22: Type 4 BM's with increased fiber and stool softner. 07/07/22: BM's are type 4. LTG Duration 04/13/22 (07/07/22: MET GOAL) Four Impairment Diastasis Rectus Impairment Doming of abdomen and pain in lower abdomen with supine lying and transfers.v Short Term Goal (STG) Strengthen TA resulting in no doming with transfers. 03/03/22: Initiated TA tightening. 07/07/22: TA tightening with light cough, sneeze, laugh type movement. Doming present with transfers and cough, sneeze, laugh movements 09/29/22: Mild doming in lower abdomen with transfers and head lift. STG Duration 08/18/22 progressed 07/07/22. Retirement Goal (LTG) Minimal to no doming with exercise and minimize diastasis rectus. 09/29/22: Diastasis around umbilicus and above umbilicus. 4 above is 1.5 finger(f)- width, 3 above is 2 f-width, 2 above is 2.25 f-width, 1 above is 2.5 f-width, Below umbilicus 1 is 2 f-widths, 2 below is very very shallow. 10/13/22: Mostly closed below umbilicus. 1 below is 1.5 and shallow. Mild improvement 1 above umbilicus. LTG Duration 10/06/22 progressed 10/13/22 Three Impairment Urinary leakage Impairment Urinary leakage with lifting too heavy and with sexual intercourse and with cough or sneeze and with exercise. Short Term Goal (STG) Pt able to maintain urinary continence with lifting of baby & coughing. 03/03/22: Leaking but not as much. 07/07/22: Not leaking with lifting baby. 04/27/22: Leaking with coughing, no leak last week. 07/07/22: Not leaking with sneeze or lifting baby. Hasn' t coughed. 08/04/22: Leaking only if holding urine too long. STG Duration 03/14/22 (08/04/22: MET GOAL) Data Report Analyst Goal (LTG) Eliminate urinary leakage with sexual intercourse, and 2 months or longer s/p . 07/07/22: Not having intercourse yet. 08/04/22: Not tried intercourse . Pt still . 08/18/22: No pain or urinary leakage with intercourse. 08/24/22: No pain or urinary leakage with intercourse, and has not noticed urinary leakage. LTG Duration 10/06/22 (08/24/22: MET GOAL) Two Impairment PF pain Impairment Pain in lower abdomen, vaginal region inside, and sometimes around anus, rated 7/10. Cramping pain in abdomen, Throbbing pain at perineum. Short Term Goal (STG) Pt educated in proper bowel mgmt/care, fluid recommendations, vulvar care and genital hygiene. 04/04/22: Pt educated in Bowel program and discussed fluid recommendation. 08/04/22: 2 days of throbbing pain during period 1x in past month (~07/03/22 period). Pt educated in vulvar care and genital hygiene. STG Duration 08/18/22 (08/04/22: MET GOAL) Retirement Goal (LTG) Decrease to no greater than 1/ 10 or eliminate PF pain in perineum and abdomen. 07/07/22: No lower abdominal pain in a long time. No dairy and having daily BMs. 08/04/22: C/o PF throbbing pain after use of tampon. 08/18/22: Pain in abdomen due to 2yo son jumping on her abdomen. 08/24/22: No pain in abdomen or PF. Pt is now regulalr with BM and she cut out Diary which has helped a lot. LTG Duration 04/13/22 (08/24/22: MET GOAL ) One Impairment Lacks appropriate self care HEP. Short Term Goal (STG) Pt will be educated in proper transfers to protect her DR and to stabilize her core/PF. 03/03/22: Trained for use of TA with transfers. 04/04/22: Educated pt in use of hands to support and I/S in use of towel to support. STG Duration 02/12/22 (04/04/21 MET GOAL) Data Report Analyst Goal (LTG) Independent HEP of self care of PF, kayley hip, core strengthening and abdominal self tissue mobilization. 02/13/22: HEP: Bowel massage, I/S in Happy Baby Pose. 04/04/22: HEP: LE Roll in/out for TA tightening. 07/07/22: HEP: hands/knees push for lower TA strengthening. 08/03/22: HEP: Trunk rot strengthening to correct rib flaring and lower abdominal TA tightening. 08/18/22: HEP: TA/Clamshell, hands/knees TA, standing gene & active trunk rotation. 10/13/22: HEP: TA/Hip AB, AD, TA hip ext prone & stand LTG Duration 10/06/22 progressed 10/13/22 Assessment Summary Assessment Pt was initially s/p w/stress urinary incontinence , core weakness and instability with doming of her abdomen and diastasis rectus. On her last attended appt on 10/13/22 she showed closing of DR below umbilicus, but was present above umbilicus and had made mild improvement. The pt has been seen since for 12 visits, and canceled her last 3 remaining appts and now she is beyond her plan of care date. She had met most of her goals and we were working on decreasing her DR through exercise progression. No further therapy is planned and the pt is being discharged from physical therapy. Physical Therapy Plan Discharge Physical Therapy Discharge Reasons No Longer Attending PT Discharge Comments The pt might benefit from further physical therapy for DR closure if she is not able to improve and regain greater core stability on her current HEP. A message was left with the pt notifying her that she would need a new referral to return to PT.
== END 2022-11-27 14:12 | disposition home or self-care (01) ==
LOC: PHYS 09:30
PROVIDERS: Family Provider Obstetrics & Gynecology; PCP Physician Assistant; Referring Provider Obstetrics & Gynecology; Visit Provider Obstetrics & Gynecology
DX: N81.89 Other female genital prolapse (principal)
CPT/HCPCS: 97110; 97140; 97162; 97535